=== PATIENT | male | born 1980 | race Caucasian/White ===

== ENCOUNTER 2019-01-18 08:46 | Inpatient (IN) | payer OTHER ==
[2019-01-18 09:07] VITALS: BMI 22.5
--- NOTE | 2019-01-18 09:09 | HP ---
CIWA Score Nausea/Vomitin Muscle Tremors: 3 Anxiety: 2 Agitation: 2 Paroxysmal Sweats: 3 Orientation: 1-Uncertain about Date Tacttile Disturbances: 2-Mild Itch/Numbness/Burn Auditory Disturbances: 1-Very Mild Visual Disturbances: 1-Very Mild Sensitivity Headache: 0-None Present CIWA-Ar Total Score: 18 - Admission Criteria OASAS Guidelines: Admission for Medically Managed Detox: Requires at least one of the followin. CIWA greater than 12 2. Seizures within the past 24 hours 3. Delirium tremens within the past 24 hours 4. Hallucinations within the past 24 hours 5. Acute intervention needed for co occurring medical disorder 6. Acute intervention needed for co occurring psychiatric disorder 7. Severe withdrawal that cannot be handled at a lower level of care (continued vomiting, continued diarrhea, abnormal vital signs) requiring intravenous medication and/or fluids 8. Patient presents the following: CIWA greater than 12 Admission Criteria Met: Admission criteria met Admission ROS BHS - HPI Chief Complaint: I want to stop drinking Allergies/Adverse Reactions: Allergies Allergy/AdvReac Type Severity Reaction Status Date / Time No Known Allergies Allergy Verified 01/18/19 09:42 History of Present Illness: 38 y/o male with 30 years of drinking alcohol presents for detox. He was sent to the ED at [facility] last night by EMS after being picked up on the street in a drunken state. He was hydrated and brought here by [facility] van service. He reports recent detox at [facility] about a month ago. This is his 1st time at [facility]. He reports prison program at [facility] for Recovery but relapsed right after the program. He reports previous seizure related to alcohol intoxication about 6 months ago. Exam Limitations: No Limitations - Ebola screening Have you traveled outside of the country in the last 21 days: No (N) Have you had contact with anyone from an Ebola affected area: No Have you been sick,other than usual withdrawal symptoms: No Do you have a fever: No - Review of Systems Constitutional: Chills, Loss of Appetite, Changes in sleep, Weakness EENT: reports: Blurred Vision Respiratory: reports: Cough Cardiac: reports: Palpitations GI: reports: Diarrhea, Nausea, Poor Appetite, Poor Fluid Intake, Vomiting : reports: No Symptoms Reported Musculoskeletal: reports: Muscle Weakness Integumentary: reports: Flushing Neuro: reports: Numbness, Tingling, Tremors, Weakness Endocrine: reports: No Symptoms Reported Hematology: reports: No Symptoms Reported Psychiatric: reports: Anxious (followed by psychiatrist. reports last seen a month ago), Depressed Other Systems: Reviewed and Negative Patient History - Patient Medical History Hx Anemia: No Hx Asthma: Yes (albuterol as needed) Hx Chronic Obstructive Pulmonary Disease (COPD): Yes Hx Cancer: No Hx Cardiac Disorders: No Hx Congestive Heart Failure: No Hx Hypertension: No Hx Hypercholesterolemia: Yes Hx Pacemaker: No HX Cerebrovascular Accident: No Hx Seizures: Yes (on keppra) Hx Dementia: No Hx Diabetes: No Hx Gastrointestinal Disorders: No Hx Liver Disease: No Hx Genitourinary Disorders: No Hx Sexually Transmitted Disorders: No Hx Renal Disease (ESRD): No Hx Thyroid Disease: Yes (hyperthyroidism) Hx Human Immunodeficiency Virus (HIV): Yes Hx Hepatitis C: No Hx Depression: Yes Hx Suicide Attempt: Yes (attempted suicide with a gun in 2013) Hx Bipolar Disorder: Yes Hx Schizophrenia: Yes (tendencies) - Patient Surgical History Past Surgical History: No - PPD History Previous Implant?: Yes Documented Results: Negative w/o proof Implanted On Prior R Admission?: No PPD to be Administered?: Yes - Reproductive History Patient is a Female of Child Bearing Age (11 -55 yrs old): No - Smoking Cessation Smoking history: Current every day smoker Have you smoked in the past 12 months: Yes Aproximately how many cigarettes per day: 40 Hx Chewing Tobacco Use: No Initiated information on smoking cessation: Yes 'Breaking Loose' booklet given: 01/18/19 - Substance & Tx. History Hx Alcohol Use: Yes Hx Substance Use: No Substance Use Type: Alcohol - Substances Abused Alcohol Route: Oral (Vodka) Frequency: Daily Amount used: 1 gallon Age of first use: 8 Date of Last Use: 01/18/19 Family Disease History - Family Disease History Family Disease History: Heart Disease: Father (alcoholism), CA: Grandparent ( pancreatic), Other: Father, Mother ( from brain aneurysm) Admission Physical Exam S - Vital Signs Vital Signs: BP 112/80 HR 89 RR18 T97 - Physical General Appearance: Yes: Mild Distress, Alcohol on Breath, Tremorous, Irritable , Sweating, Anxious HEENTM: Yes: Hearing grossly Normal, Normocephalic, Normal Voice Respiratory: Yes: Chest Non-Tender, Lungs Clear, Normal Breath Sounds, No Respiratory Distress, No Accessory Muscle Use Neck: Yes: No masses,lesions,Nodules, Supple, Trachea in good position Breast: Yes: Breast Exam Deferred Cardiology: Yes: Regular Rhythm, Regular Rate, S1, S2 Abdominal: Yes: Normal Bowel Sounds, Non Tender, Soft Genitourinary: Yes: Within Normal Limits Back: Yes: Normal Inspection Musculoskeletal: Yes: full range of Motion, Muscle weakness Extremities: Yes: Normal Capillary Refill, Normal Inspection, Normal Range of Motion, Non-Tender, Tremors Neurological: Yes: dryer and washer mechanic II-XII NML intact, Alert, Normal Mood/Affect, Normal Response Integumentary: Yes: Normal Color, Moist Lymphatic: Yes: Within Normal Limits - Diagnostic (1) Uncomplicated alcohol withdrawal Current Visit: Yes Status: Acute (2) Seizure disorder Current Visit: Yes Status: Acute (3) Hypercholesterolemia Current Visit: Yes Status: Acute (4) Hypothyroidism Current Visit: Yes Status: Acute (5) Asthma Current Visit: Yes Status: Acute (6) COPD (chronic obstructive pulmonary disease) Current Visit: Yes Status: Acute Cleared for Admission S - Detox or Rehab [facility] Level of Care: Medically Managed Detox Regimen/Protocol: Librium Inpatient Rehab Admission - Rehab Decision to Admit Inpatient rehab admission?: No
[2019-01-18] MEDS ORDERED: MAGNESIUM CITRATE 300 ML BOTTLE PO PRN (09:30)
[2019-01-18] MEDS ORDERED: ACETAMINOPHEN 325 MG TABLET (FP) PO PRN (09:30)
[2019-01-18] MEDS ORDERED: guaiFENesin/D-METHORPHAN HB 10 ML UNIT-DOSE CUPS PO PRN (09:30)
[2019-01-18] MEDS ORDERED: MAGNESIUM HYDROX 2400MG/30ML ORAL SUSPENSION 30 ML CUP PO PRN (09:30)
[2019-01-18] MEDS ORDERED: LOPERAMIDE HCL 2 MG CAPSULE PO PRN (09:30)
[2019-01-18] MEDS ORDERED: MENTHOL/PHENOL 1 EACH UD MM PRN (09:30)
[2019-01-18] MEDS ORDERED: P-EPHED 60MG/TRIPROLIDI 2.5MG TABLET PO PRN (09:30)
[2019-01-18] MEDS ORDERED: NICOTINE POLACRILEX 2 MG GUM BUC PRN (09:30)
[2019-01-18] MEDS ORDERED: MAG HYDROX/AL HYDROX/SIMETH 30 ML UNIT-DOSE CUP PO PRN (09:30)
[2019-01-18] MEDS ORDERED: IBUPROFEN 400 MG TABLET (FP) PO PRN (09:30)
[2019-01-18] MEDS ORDERED: chlordiazePOXIDE HCL 25 MG CAPSULE PO ONE (10:45)
[2019-01-18] MEDS: levETIRAcetam 250 MG TABLET (FP) PO SCH ×2 (11:33→22:26)
[2019-01-18] MEDS: PRENATAL VITAMINS W/ FOLIC ACID TABLET (FP) PO SCH (11:34)
[2019-01-18] MEDS: chlordiazePOXIDE HCL 25 MG CAPSULE PO SCH ×3 (11:34→22:27)
[2019-01-18] MEDS: NICOTINE 14 MG/24 HOURS TOPICAL PATCH TD SCH (11:35)
--- NOTE | 2019-01-18 14:44 | CONSULT ---
[facility] Psychiatric Consult - Data Date of interview: 01/18/19 Admission source: [facility] Identifying data: First admission to [facility] for this 38 y/o male self-referred for detoxification (alcohol, cannabis). Evaluated at [address] [place] [address]. Patient is single without dependents, homeless ([facility] resident), unemployed and supported on Public Assistance. Substance Abuse History: Confirmed by the patient in this interview. Details in current [facility] report as follows : Smoking history: Current every day smoker. Have you smoked in the past 12 months: Yes. Aproximately how many cigarettes per day: 40. Hx Chewing Tobacco Use: No. Initiated information on smoking cessation: Yes. 'Breaking Loose' booklet given: 01/18/19. - Substance & Tx. History. Hx Alcohol Use: Yes. Hx Substance Use: No. Substance Use Type: Alcohol. - Substances Abused. Alcohol. Route: Oral (Vodka). Frequency: Daily. Amount used: 1 gallon. Age of first use: 8. Date of Last Use: 01/18/19 Medical History: Consistent with self-report of hyperthyroidism, dyslipidemia and a history of withdrawal-related seizures. Psychiatric History: Patient reports an enduring history of pyschiatric disturbances that started around age 9-10 (temper tantrums, behavioral issues, anxiety) after his father's . Endorses multiple psychiatric hospitalizations ([facility], [facility], [facility]). Mr Cardona has received several diagnoses over the years (bipolar disorder, MDD, PTSD, panic disorder with agoraphobia) and managed with various drugs which include gabapentin, valproate, quetiapine, sertraline, minipres and other unnamed agents. He admits to a pattern of inconsistent adherence to OPD care. Recently followed at [facility] mental health clinic. No show for more than a month (patient's own statement). Gets medications refills from local emergency room settings. Patient mentions one suicide attempt via mongolian roulette in 2013 (girlfriend called EMS) and reports that he, no longer, owns a firearm (was confiscated by the Police). Last took prescribed psychotropic medications a week ago (self-report). Questionable historian. Physical/Sexual Abuse/Trauma History: Patient denies. Additional Comment: Toxicology screen not available. Mental Status Exam - Mental Status Exam Alert and Oriented to: Time, Place, Person Cognitive Function: Good Patient Appearance: Well Groomed Mood: Nervous, Withdrawn Affect: Mood Congruent, Constricted Patient Behavior: Fatigued, Appropriate, Cooperative Speech Pattern: Clear, Appropriate Voice Loudness: Normal Thought Process: Goal Oriented Thought Disorder: Not Present Hallucinations: Denies Suicidal Ideation: Denies Homicidal Ideation: Denies Insight/Judgement: Poor Sleep: Poorly, Difficulty falling asleep (wants seroquel) Appetite: Good Muscle strength/Tone: Normal Gait/Station: Normal Psychiatric Findings - Problem List ([place] 1, 2,3) (1) Uncomplicated alcohol withdrawal Current Visit: Yes Status: Acute (2) Nicotine dependence Current Visit: Yes Status: Chronic (3) Substance induced mood disorder Current Visit: Yes Status: Chronic (4) History of bipolar disorder Current Visit: Yes Status: Chronic Comment: Non-compliant with psychiatric aftercare. (5) Insomnia Current Visit: Yes Status: Acute (6) Non-compliant patient Current Visit: Yes Status: Chronic - Initial Treatment Plan Initial Treatment Plan: Psychoeducation. Sleep hygiene. Detoxification. Relapse prevention : explained to patient. AA meetings. Motivational sessions throughout hospital course. Groups. Patient agrees, after discussion of side effects/benefits to be started on seroquel 100 mg po hs. Observation. No information about patient's regular pharmacy or psychiatric care providers. Will contact [facility] for collateral information prior to resuming sertraline, valproate and gabapentin.
[2019-01-18] MEDS: hydrOXYzine PAMOATE 50 MG CAPSULE (FP) PO PRN ×2 (17:32→22:27)
[2019-01-18] MEDS ORDERED: MELATONIN 5 MG TABLETS PO PRN (22:00)
--- NOTE | 2019-01-18 22:17 | EKG ---
Test Reason : Blood Pressure : / mmHG Vent. Rate : 073 BPM Atrial Rate : 073 BPM P-R Int : 126 ms QRS Dur : 092 ms QT Int : 392 ms P-R-T Axes : 053 071 043 degrees QTc Int : 431 ms NORMAL SINUS RHYTHM NORMAL ECG NO PREVIOUS ECGS AVAILABLE Confirmed by ENRIQUE HERNANDEZ MD ([id number]) on 01/18/2019 10:17:30 PM Referred By: JOSE BRADEN Confirmed By:ENRIQUE HERNANDEZ MD
[2019-01-18] MEDS: THIAMINE HCL 100 MG TABLET (FP) PO SCH (22:27)
[2019-01-18] MEDS: QUEtiapine FUMARATE 100 MG TABLET (FP) PO SCH (22:27)
[2019-01-19] MEDS: chlordiazePOXIDE HCL 25 MG CAPSULE PO PRN (01:20)
[2019-01-19] MEDS: chlordiazePOXIDE HCL 25 MG CAPSULE PO SCH ×4 (05:55→22:34)
[2019-01-19] MEDS: NICOTINE 14 MG/24 HOURS TOPICAL PATCH TD SCH (09:29)
[2019-01-19] MEDS: PRENATAL VITAMINS W/ FOLIC ACID TABLET (FP) PO SCH (09:29)
[2019-01-19] MEDS: levETIRAcetam 250 MG TABLET (FP) PO SCH ×2 (09:30→22:33)
[2019-01-19] MEDS: hydrOXYzine PAMOATE 50 MG CAPSULE (FP) PO PRN ×2 (10:06→22:34)
[2019-01-19 10:47] LABS: ALBUMIN 4.5 g/dl (3.4-5.0); ALK PHOS 72 U/L (45-117); ANION GAP 9 MMOL/L (8-16); BILIRUBIN,TOTAL 0.2 mg/dL (0.2-1); BLOOD UREA NITROGEN 9 mg/dL (7-18); CALCIUM 8.7 mg/dL (8.5-10.1); CHLORIDE 103 mmol/L (98-107); CO2 27 mmol/L (21-32); GLUCOSE,RANDOM 74 mg/dL (74-106); POTASSIUM 3.6 mmol/L (3.5-5.1); SGOT/AST 37 U/L (15-37); SGPT/ALT 31 U/L (13-61); SODIUM 139 mmol/L (136-145); TOT PROT 7.8 g/dl (6.4-8.2)
[2019-01-19 10:53] LABS: HEMATOCRIT 46.4 % (35.4-49); HEMOGLOBIN 16.1 GM/dL (11.7-16.9); MCH 34.4 pg (25.7-33.7); MCHC 34.6 g/dl (32.0-35.9); MEAN CELL VOLUME 99.3 fl (80-96); MEAN PLT VOLUME 8.3 fl (7.5-11.1); PLATELET COUNT 234 K/MM3 (134-434); RBC 4.67 M/mm3 (4.00-5.60); WHITE BLOOD COUNT 7.9 K/mm3 (4.0-10.0)
[2019-01-19] MEDS: ONDANSETRON *ODT* 4 MG TABLET SL PRN ×2 (12:30→22:48)
--- NOTE | 2019-01-19 16:18 | PN ---
S CIWA - CIWA Score Nausea/Vomitin Muscle Tremors: 4-Moderate,w/Arms Extend Anxiety: 4-Mod. Anxious/Guarded Agitation: 4-Moderately Restless Paroxysmal Sweats: 3 Orientation: 0-Oriented Tacttile Disturbances: 1-Very Mild Itch/Numbness Auditory Disturbances: 0-None Visual Disturbances: 0-None Headache: 0-None Present CIWA-Ar Total Score: 18 BHS Progress Note (SOAP) Subjective: Sweating, tremor, anxious, tingling in hands, nausea Objective: 01/19/19 16:17 Last Vital Signs Temp Pulse Resp BP Pulse Ox 96.8 F L 74 18 115/69 01/19/19 13:27 01/19/19 13:27 01/19/19 13:27 01/19/19 13:27 Laboratory Tests 01/19/19 01/19/19 01/19/19 05:50 05:50 05:50 WBC 7.9 RBC 4.67 Hgb 16.1 Hct 46.4 MCV 99.3 H MCH 34.4 H MCHC 34.6 RDW 14.0 Plt Count 234 MPV 8.3 Sodium 139 Potassium 3.6 Chloride 103 Carbon Dioxide 27 Anion Gap 9 BUN 9 Creatinine 1.0 Creat Clearance w eGFR > 60 Random Glucose 74 Calcium 8.7 Total Bilirubin 0.2 AST 37 ALT 31 Alkaline Phosphatase 72 Total Protein 7.8 Albumin 4.5 RPR Titer Nonreactive Labs reviewed Assessment: 01/19/19 16:17 Withdrawal symptoms Plan: Continue detox Encouraged PO water hydration
[2019-01-19] MEDS: THIAMINE HCL 100 MG TABLET (FP) PO SCH (22:34)
[2019-01-19] MEDS: QUEtiapine FUMARATE 100 MG TABLET (FP) PO SCH (22:34)
[2019-01-20] MEDS: chlordiazePOXIDE HCL 25 MG CAPSULE PO SCH (05:50)
--- NOTE | 2019-01-20 09:35 | CONSULT ---
[facility] Psychiatric Consult - Data Date of interview: 01/20/19 Admission source: My medications Identifying data: approached MD in a lobby reporting not taking medications he kayy been taking prior to admission. Patient reports history of
--- NOTE | 2019-01-20 09:44 | PN ---
Psychiatric Progress Note Vital Signs: Vital Signs Period Temp Pulse Resp BP Sys/Ceron Pulse Ox Last 24 Hr 95.5 F-98.4 F 66-77 18-20 110-122/69-93 Date of Session: 01/20/19 Chief Complaint:: My medications HPI: Patient approached MD in a lobby reporting not taking his medications he kayy been taking prior to admission. Patient reports history of Bipolar Disorder , Schizophrenia , with history of suicidal attempt on 2013, reports taking prior to admission: Depakote 750mg po tid Current Medications: Active Medications Generic Name Dose Route Start Last Admin Trade Name Freq PRN Reason Stop Dose Admin Acetaminophen 650 mg 01/18/19 09:30 Tylenol - PO Q4H PRN FEVER Al Hydroxide/Mg Hydroxide 30 ml 01/18/19 09:30 01/19/19 17:03 Mylanta Oral Suspension - PO 30 ml Q6H PRN Administration DYSPEPSIA Chlordiazepoxide HCl 15 mg 01/20/19 11:00 Librium - PO 01/21/19 05:01 [id number] WYATT Chlordiazepoxide HCl 25 mg 01/18/19 09:30 01/19/19 01:20 Librium - PO 01/21/19 09:29 25 mg Q4H PRN Administration WITHDRAWAL(CONT SUBST) Chlordiazepoxide HCl 10 mg 01/21/19 11:00 Librium - PO 01/22/19 05:01 [id number] WYATT Divalproex Sodium 250 mg 01/20/19 14:00 Depakote - PO TID WYATT Eucalyptus/Menthol/Phenol/Sorbitol 1 each 01/18/19 09:30 Cepastat Lozenge - MM Q4H PRN SORE THROAT Gabapentin 300 mg 01/20/19 14:00 Neurontin - PO TID WYATT Guaifenesin 10 ml 01/18/19 09:30 Robitussin Dm - PO Q6H PRN COUGH Hydroxyzine Pamoate 50 mg 01/18/19 09:30 01/19/19 22:34 Vistaril - PO 50 mg Q4H PRN Administration AGITATION Ibuprofen 400 mg 01/18/19 09:30 Motrin - PO Q6H PRN PAIN LEVEL 4-6 Levetiracetam 250 mg 01/18/19 10:00 01/19/19 22:33 Keppra - PO 250 mg BID WYATT Administration Loperamide HCl 4 mg 01/18/19 09:30 Imodium - PO Q6H PRN DIARRHEA Magnesium Citrate 300 ml 01/18/19 09:30 Citroma - PO Q48H PRN CONSTIPATION Magnesium Hydroxide 30 ml 01/18/19 09:30 Milk Of Magnesia - PO DAILY PRN CONSTIPATION Melatonin 5 mg 01/18/19 22:00 01/19/19 01:20 Melatonin PO 5 mg HS PRN Administration INSOMNIA Nicotine 14 mg 01/18/19 10:00 01/19/19 09:29 Nicoderm Patch - TD 14 mg DAILY WYATT Administration Nicotine Polacrilex 2 mg 01/18/19 09:30 Nicorette Gum - BUC Q2H PRN NICOTINE REPLACEMENT RX Ondansetron HCl 4 mg 01/19/19 11:09 01/19/19 22:48 Zofran Odt - SL 4 mg Q8H PRN Administration NAUSEA AND/OR VOMITING Multivit/Folic Acid/Iron 1 tab 01/18/19 10:00 01/19/19 09:29 Vitamins (Sjr) - PO 1 tab DAILY WYATT Administration Pseudoephedrine/Triprolidine 1 combo 01/18/19 09:30 Actifed - PO TID PRN NASAL CONGESTION Quetiapine Fumarate 200 mg 01/20/19 22:00 Seroquel - PO HS WYATT Quetiapine Fumarate 25 mg 01/20/19 10:00 Seroquel - PO DAILY WYATT Sertraline HCl 100 mg 01/20/19 10:00 Zoloft - PO DAILY WYATT Thiamine HCl 100 mg 01/18/19 22:00 01/19/19 22:34 Vitamin B1 - PO 100 mg HS WYATT Administration Seroquel 100mg po qhs Medication(s) Change(s): Seroquek 100mg po qhs to d/c. Seroquel 25mg po qd, 200mg po qhs. Depakote 250mg po tid. Gaabapentin 300mg po tid. Zoloft 100mg poqd Provider note:: Supportive psychotherapy provided, patioent agrees to start his medications. Mental Status Exam - Mental Status Exam Alert and Oriented to: Person Cognitive Function: Fair Patient Appearance: Unkempt Mood: Anxious Affect: Mood Congruent Patient Behavior: Cooperative Speech Pattern: Appropriate Voice Loudness: Normal Thought Process: Goal Oriented Thought Disorder: Being Controlled Hallucinations: Denies Suicidal Ideation: Denies Homicidal Ideation: Denies Insight/Judgement: Fair Sleep: Difficulty falling asleep Appetite: Weight loss Muscle strength/Tone: Normal Gait/Station: Normal Additional Comments: Seroquel 25mg po qd, 200mg po qhs. Depakote 250mg po tid. Gaabapentin 300mg po tid. Zoloft 100mg poqd Psychiatric Treatment Plan - Problem List (1) History of bipolar disorder Current Visit: Yes Comment: Non-compliant with psychiatric aftercare. (2) Nicotine dependence Current Visit: Yes (3) Substance induced mood disorder Current Visit: Yes (4) Alcohol dependence Current Visit: Yes (5) Nicotine dependence Current Visit: Yes (6) Drug-induced mood disorder Current Visit: Yes (7) Asthma Current Visit: Yes (8) COPD (chronic obstructive pulmonary disease) Current Visit: Yes (9) Hypercholesterolemia Current Visit: Yes (10) Hypothyroidism Current Visit: Yes (11) Non-compliant patient Current Visit: Yes Initial treatment plan: Seroquel 25mg po qd, 200mg po qhs. Depakote 250mg po tid. Gaabapentin 300mg po tid. Zoloft 100mg poqd
[2019-01-20] MEDS: SERTRALINE HCL 50 MG TABLET (FP) PO SCH (10:36)
[2019-01-20] MEDS: PRENATAL VITAMINS W/ FOLIC ACID TABLET (FP) PO SCH (10:36)
[2019-01-20] MEDS: NICOTINE 14 MG/24 HOURS TOPICAL PATCH TD SCH (10:37)
[2019-01-20] MEDS: levETIRAcetam 250 MG TABLET (FP) PO SCH ×2 (10:37→22:06)
[2019-01-20] MEDS: chlordiazePOXIDE 5 MG CAPSULE PO SCH ×3 (10:37→22:07)
[2019-01-20] MEDS: QUEtiapine FUMARATE 25 MG TABLET (FP) PO SCH (10:37)
--- NOTE | 2019-01-20 11:42 | PN ---
[facility] CIWA - CIWA Score Nausea/Vomitin-No Nausea/No Vomiting Muscle Tremors: 2 Anxiety: 3 Agitation: 3 Paroxysmal Sweats: 2 Orientation: 0-Oriented Tacttile Disturbances: 0-None Auditory Disturbances: 0-None Visual Disturbances: 0-None Headache: 0-None Present CIWA-Ar Total Score: 10 S Progress Note (SOAP) Subjective: sweats sleep disturbance anxious shakes Objective: 01/20/19 11:38 A & O x 3 Met standing in room in no acute distress Vital Signs Temperature 97.3 F L 01/20/19 09:09 Pulse Rate 77 01/20/19 09:09 Respiratory Rate 18 01/20/19 09:09 Blood Pressure 110/73 01/20/19 09:09 O2 Sat by Pulse Oximetry (%) Assessment: 01/20/19 11:44 withdrawal sx Plan: continue detox For d/c in a.m
[2019-01-20] MEDS: DIVALPROEX SODIUM 250 MG TABLET E.C. PO SCH ×2 (13:38→22:06)
[2019-01-20] MEDS: GABAPENTIN 300 MG CAPSULE (FP) PO SCH ×2 (13:38→22:06)
[2019-01-20] MEDS: chlordiazePOXIDE HCL 25 MG CAPSULE PO PRN (13:39)
[2019-01-20] MEDS: QUEtiapine FUMARATE 200 MG TABLET PO SCH (22:06)
[2019-01-20] MEDS: THIAMINE HCL 100 MG TABLET (FP) PO SCH (22:06)
[2019-01-21] MEDS: chlordiazePOXIDE HCL 25 MG CAPSULE PO PRN (03:07)
[2019-01-21] MEDS: chlordiazePOXIDE 5 MG CAPSULE PO SCH (05:56)
[2019-01-21] MEDS: DIVALPROEX SODIUM 250 MG TABLET E.C. PO SCH ×3 (05:56→22:18)
[2019-01-21] MEDS: GABAPENTIN 300 MG CAPSULE (FP) PO SCH ×3 (05:57→22:18)
[2019-01-21] MEDS: PRENATAL VITAMINS W/ FOLIC ACID TABLET (FP) PO SCH (10:30)
[2019-01-21] MEDS: chlordiazePOXIDE HCL 10 MG CAPSULE PO SCH ×3 (10:30→22:18)
[2019-01-21] MEDS: QUEtiapine FUMARATE 25 MG TABLET (FP) PO SCH (10:30)
[2019-01-21] MEDS: SERTRALINE HCL 50 MG TABLET (FP) PO SCH (10:30)
[2019-01-21] MEDS: NICOTINE 14 MG/24 HOURS TOPICAL PATCH TD SCH (10:31)
[2019-01-21] MEDS: levETIRAcetam 250 MG TABLET (FP) PO SCH ×2 (10:31→22:18)
--- NOTE | 2019-01-21 12:16 | PN ---
BHS Progress Note (SOAP) Subjective: Interrupted Sleep, Nausea, Tremors, Sweating. Objective: PATIENT A & O X 3, OBSERVED AMBULATING ON UNIT. IN NO ACUTE DISTRESS. 01/21/19 12:13 Vital Signs Temperature 97.9 F 01/21/19 09:54 Pulse Rate 69 01/21/19 09:54 Respiratory Rate 18 01/21/19 09:54 Blood Pressure 110/72 01/21/19 09:54 O2 Sat by Pulse Oximetry (%) Laboratory Tests 01/19/19 01/19/19 01/19/19 05:50 05:50 05:50 WBC 7.9 RBC 4.67 Hgb 16.1 Hct 46.4 MCV 99.3 H MCH 34.4 H MCHC 34.6 RDW 14.0 Plt Count 234 MPV 8.3 Sodium 139 Potassium 3.6 Chloride 103 Carbon Dioxide 27 Anion Gap 9 BUN 9 Creatinine 1.0 Creat Clearance w eGFR > 60 Random Glucose 74 Calcium 8.7 Total Bilirubin 0.2 AST 37 ALT 31 Alkaline Phosphatase 72 Total Protein 7.8 Albumin 4.5 RPR Titer Nonreactive LABS NOTED. 01/21/19 12:14 Assessment: 01/21/19 12:14 WITHDRAWAL SYMPTOMS. Plan: CONTINUE DETOX. PATIENT SCHEDULED FOR D/C TOMORROW. DISCHARGE PRESCRIPTION FOR KEPPRA SENT TO PATIENT'S PHARMACY ([facility], [place]). OTHER DISCHARGE PRESCRIPTIONS TO SENT BY PSYCHIATRY.
--- NOTE | 2019-01-21 12:51 | PN ---
Psychiatric Progress Note Vital Signs: Vital Signs Period Temp Pulse Resp BP Sys/Ceron Pulse Ox Last 24 Hr 96.3 F-97.9 F 64-79 16-18 104-133/64-82 Date of Session: 01/21/19 Chief Complaint:: "My medications." HPI: Patient requesting medications be sent to a different phamacy. ROS: Consistent with self-report of hyperthyroidism, dyslipidemia and a history of withdrawal-related seizures. Current Medications: Active Medications Generic Name Dose Route Start Last Admin Trade Name Freq PRN Reason Stop Dose Admin Acetaminophen 650 mg 01/18/19 09:30 Tylenol - PO Q4H PRN FEVER Al Hydroxide/Mg Hydroxide 30 ml 01/18/19 09:30 01/19/19 17:03 Mylanta Oral Suspension - PO 30 ml Q6H PRN Administration DYSPEPSIA Chlordiazepoxide HCl 10 mg 01/21/19 11:00 01/21/19 10:30 Librium - PO 01/22/19 05:01 10 mg [id number] WYATT Administration Divalproex Sodium 250 mg 01/20/19 14:00 01/21/19 05:56 Depakote - PO 250 mg TID WYATT Administration Eucalyptus/Menthol/Phenol/Sorbitol 1 each 01/18/19 09:30 Cepastat Lozenge - MM Q4H PRN SORE THROAT Gabapentin 300 mg 01/20/19 14:00 01/21/19 05:57 Neurontin - PO 300 mg TID WYATT Administration Guaifenesin 10 ml 01/18/19 09:30 Robitussin Dm - PO Q6H PRN COUGH Hydroxyzine Pamoate 50 mg 01/18/19 09:30 01/19/19 22:34 Vistaril - PO 50 mg Q4H PRN Administration AGITATION Ibuprofen 400 mg 01/18/19 09:30 Motrin - PO Q6H PRN PAIN LEVEL 4-6 Levetiracetam 250 mg 01/18/19 10:00 01/21/19 10:31 Keppra - PO 250 mg BID WYATT Administration Loperamide HCl 4 mg 01/18/19 09:30 Imodium - PO Q6H PRN DIARRHEA Magnesium Citrate 300 ml 01/18/19 09:30 Citroma - PO Q48H PRN CONSTIPATION Magnesium Hydroxide 30 ml 01/18/19 09:30 Milk Of Magnesia - PO DAILY PRN CONSTIPATION Melatonin 5 mg 01/18/19 22:00 01/19/19 01:20 Melatonin PO 5 mg HS PRN Administration INSOMNIA Nicotine 14 mg 01/18/19 10:00 01/21/19 10:31 Nicoderm Patch - TD 14 mg DAILY WYATT Administration Nicotine Polacrilex 2 mg 01/18/19 09:30 Nicorette Gum - BUC Q2H PRN NICOTINE REPLACEMENT RX Ondansetron HCl 4 mg 01/19/19 11:09 01/19/19 22:48 Zofran Odt - SL 4 mg Q8H PRN Administration NAUSEA AND/OR VOMITING Multivit/Folic Acid/Iron 1 tab 01/18/19 10:00 01/21/19 10:30 Vitamins (Sjr) - PO 1 tab DAILY WYATT Administration Pseudoephedrine/Triprolidine 1 combo 01/18/19 09:30 Actifed - PO TID PRN NASAL CONGESTION Quetiapine Fumarate 200 mg 01/20/19 22:00 01/20/19 22:06 Seroquel - PO 200 mg HS WYATT Administration Quetiapine Fumarate 25 mg 01/20/19 10:00 01/21/19 10:30 Seroquel - PO 25 mg DAILY WYATT Administration Sertraline HCl 100 mg 01/20/19 10:00 01/21/19 10:30 Zoloft - PO 100 mg DAILY WYATT Administration Thiamine HCl 100 mg 01/18/19 22:00 01/20/19 22:06 Vitamin B1 - PO 100 mg HS WYATT Administration Medication(s) Change(s): No. Current Side Effect: No Lab tests ordered: No Lab tests reviewed: Yes Provider note:: Patient seen by Dr. Wright. Dr. Wright's note read and appreciated. Patient reports feeling well and is content with his treatment in detox. Outpatient psychiatric care was provided at [facility] but patient states he does not have a follow up appointment with them and is now scheduled for an assessment at [facility] on . Patient's medications were initially sent to [place] pharmacy by Dr. Wright. Patient requesting medications be sent to [facility] pharmacy. Chart reviewed. Patient's pharmacy contacted and able to verify patient's medication dosage of seroquel 200mg HS + Seroquel 25mg daily + Zoloft 50mg. INTERVENTIONAL NEURORADIOLOGIST spoke to pharmacist earlier who stated patient is prescribed gabapentin 300mg TID + Depakote 500mg TID. All prescriptions were picked up on 12/06/18. Patient with suboptimal adherence as prescription should have been completed on 01/06/19. Will send a 15 day prescription of the following medications patient was ordered on 6N by Dr. Wright: seroquel 200mg HS + Seroquel 25mg daily + zoloft 100mg daily + Gabapentin 300mg TID + Depakote 250mg TID to [facility], [address] [place] [address]. Total face to face time:: 15 Mental Status Exam - Mental Status Exam Alert and Oriented to: Time, Place, Person Cognitive Function: Good Patient Appearance: Well Groomed Mood: Euthymic Affect: Appropriate Patient Behavior: Appropriate, Cooperative Speech Pattern: Clear, Appropriate Voice Loudness: Normal Thought Process: Intact, Goal Oriented Thought Disorder: Not Present Hallucinations: Denies Suicidal Ideation: Denies Homicidal Ideation: Denies Insight/Judgement: Poor Sleep: Fair Appetite: Good Muscle strength/Tone: Normal Gait/Station: Normal Psychiatric Treatment Plan - Problem List (1) Nicotine dependence Current Visit: Yes (2) Uncomplicated alcohol withdrawal Current Visit: Yes (3) History of bipolar disorder Current Visit: Yes Comment: Non-compliant with psychiatric aftercare. (4) Substance induced mood disorder Current Visit: Yes (5) Insomnia Current Visit: Yes
[2019-01-21] MEDS: THIAMINE HCL 100 MG TABLET (FP) PO SCH (22:18)
[2019-01-21] MEDS: QUEtiapine FUMARATE 200 MG TABLET PO SCH (22:18)
[2019-01-22] MEDS: GABAPENTIN 300 MG CAPSULE (FP) PO SCH (05:57)
[2019-01-22] MEDS: chlordiazePOXIDE HCL 10 MG CAPSULE PO SCH (05:57)
[2019-01-22] MEDS: DIVALPROEX SODIUM 250 MG TABLET E.C. PO SCH (05:58)
[2019-01-22 09:18] VITALS: BP 127/78; PULSE 65; TEMP 96.4
[2019-01-22] MEDS: QUEtiapine FUMARATE 25 MG TABLET (FP) PO SCH (09:25)
[2019-01-22] MEDS: SERTRALINE HCL 50 MG TABLET (FP) PO SCH (09:25)
[2019-01-22] MEDS: levETIRAcetam 250 MG TABLET (FP) PO SCH (09:25)
[2019-01-22] MEDS: PRENATAL VITAMINS W/ FOLIC ACID TABLET (FP) PO SCH (09:25)
[2019-01-22] MEDS: NICOTINE 14 MG/24 HOURS TOPICAL PATCH TD SCH (10:00)
--- NOTE | 2019-01-22 19:59 | DS ---
[facility] Detox Discharge Summary Admission Date: 01/18/19 Discharge Date: 01/22/19 - History Present History: Alcohol Dependence Additional Comments: PATIENT GOING TO [facility] ([place], [place]) FOR AFTERCARE. PATIENT ADVISED TO FOLLOW-UP WITH [facility] DR. HUTSON ([place], [place]) SOON POSSIBLE AFTER DISCHARGE FORM DETOX UNIT FOR GENERAL MEDICAL ASSESSMENT AND FOR HISTORY OF SEIZURE DISORDER. PATIENT VERBALIZED UNDERSTANDING OF RECOMMENDATION. PRESCRIPTIONS DFORT DISCHARGE MEDICATIONS, INCLUDING KEPPRA FOR SEIZURE DISORDER, SENT TO PATIENT'S PHARMACY ([place], [place]) FOR DISCHARGE AFTERCARE. DISCHARGE PATIENT WAS DISCHARGED FROM DETOX UNIT IN STABLE MEDICAL CONDITION. Pertinent Past History: Asthma, C.O.P.D., History of Depression, History of Bipolar Disorder, Insomnia, History of Hypothyroidism, History of Schizophrenia, History of Seizure Disorder , H.I.V., Nicotine Dependence, History of Insomnia. - Physical Exam Results Vital Signs: Vital Signs Temperature 96.4 F L 01/22/19 09:17 Pulse Rate 65 01/22/19 09:17 Respiratory Rate 18 01/22/19 09:17 Blood Pressure 127/78 01/22/19 09:17 O2 Sat by Pulse Oximetry (%) Pertinent Admission Physical Exam Findings: WITHDRAWAL SYMPTOMS. Laboratory Tests 01/19/19 01/19/19 01/19/19 05:50 05:50 05:50 WBC 7.9 RBC 4.67 Hgb 16.1 Hct 46.4 MCV 99.3 H MCH 34.4 H MCHC 34.6 RDW 14.0 Plt Count 234 MPV 8.3 Sodium 139 Potassium 3.6 Chloride 103 Carbon Dioxide 27 Anion Gap 9 BUN 9 Creatinine 1.0 Creat Clearance w eGFR > 60 Random Glucose 74 Calcium 8.7 Total Bilirubin 0.2 AST 37 ALT 31 Alkaline Phosphatase 72 Total Protein 7.8 Albumin 4.5 RPR Titer Nonreactive LABS NOTED. - Treatment Hospital Course: Detox Protocol Followed, Detoxed Safely, Responded well, Discharged Condition Good Patient has Accepted a Rehab Referral to: PATIENT WILL ATTEND [facility] ([place], [place]). - Medication Discharge Medications: Ambulatory Orders Divalproex [Depakote -] 750 mg PO TID 01/18/19 Quetiapine Fumarate [Seroquel] 200 mg PO HS 01/18/19 Sertraline HCl [Zoloft] 250 mg PO DAILY 01/18/19 Divalproex [Depakote -] 250 mg PO TID #60 tablet.ec 01/20/19 Gabapentin 750 mg PO TID #90 capsule 01/20/19 Quetiapine Fumarate [Seroquel -] 25 mg PO DAILY #30 tablet 01/20/19 Quetiapine Fumarate [Seroquel -] 200 mg PO HS #30 tablet 01/20/19 Sertraline HCl [Zoloft] 100 mg PO DAILY #30 tablet 01/20/19 Divalproex [Depakote -] 250 mg PO TID #45 tablet.ec 01/21/19 Gabapentin 300 mg PO TID #45 capsule 01/21/19 Quetiapine Fumarate [Seroquel -] 25 mg PO DAILY #15 tablet 01/21/19 Quetiapine Fumarate [Seroquel -] 200 mg PO HS #15 tab 01/21/19 Sertraline HCl [Zoloft] 100 mg PO DAILY #15 tablet 01/21/19 levETIRAcetam [Keppra -] 250 mg PO BID 30 Days #60 tablet 01/21/19 - Diagnosis (1) Asthma Status: Chronic Qualifiers: Asthma severity: unspecified severity Asthma persistence: unspecified Asthma complication type: uncomplicated Qualified Code(s): J45.909 - Unspecified asthma, uncomplicated (2) COPD (chronic obstructive pulmonary disease) Status: Chronic Qualifiers: COPD type: unspecified COPD Qualified Code(s): J44.9 - Chronic obstructive pulmonary disease, unspecified (3) Drug-induced mood disorder Status: Acute (4) Hypercholesterolemia Status: Acute (5) Hypothyroidism Status: Acute Qualifiers: Hypothyroidism type: unspecified Qualified Code(s): E03.9 - Hypothyroidism , unspecified (6) Insomnia Status: Acute Qualifiers: Insomnia type: unspecified Qualified Code(s): G47.00 - Insomnia, unspecified (7) Nicotine dependence Status: Acute Qualifiers: Nicotine product type: cigarettes Substance use status: uncomplicated Qualified Code(s): F17.210 - Nicotine dependence, cigarettes, uncomplicated (8) Seizure disorder Status: Chronic (9) Uncomplicated alcohol withdrawal Status: Acute (10) History of bipolar disorder Status: Chronic (11) Non-compliant patient Status: Chronic (12) Substance induced mood disorder Status: Chronic - AMA Did Patient Leave Against Medical Advice: No
== END 2019-01-22 11:46 | disposition home or self-care (01) | DRG 775 ==
LOC: YASAS 08:46 → Y6N 09:58
PROVIDERS: ADMIT Surgery; ATTEND Surgery
PROC: HZ2ZZZZ Detoxification Services for Substance Abuse Treatment (ICD-10-PCS; principal; 2019-01-18)
DX: F10.230 Alcohol dependence with withdrawal, uncomplicated (principal); F17.210 Nicotine dependence, cigarettes, uncomplicated; F19.21 Other psychoactive substance dependence, in remission; Z21 Asymptomatic human immunodeficiency virus [HIV] infection status; G47.00 Insomnia, unspecified; J45.909 Unspecified asthma, uncomplicated; J44.9 Chronic obstructive pulmonary disease, unspecified; E03.9 Hypothyroidism, unspecified; E78.00 Pure hypercholesterolemia, unspecified; Z86.69 Personal history of other diseases of the nervous system and sense organs; Z86.59 Personal history of other mental and behavioral disorders; Z91.5 Personal history of self-harm; Z91.19 Patient's noncompliance with other medical treatment and regimen
CPT/HCPCS: 36415; 80053; 85027; 86593; 93005; 93010; Q0162

== ENCOUNTER 2019-07-19 08:53 | Inpatient (IN) | payer OTHER ==
[2019-07-19 09:20] VITALS: BMI 23.6
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
[2019-07-19] MEDS ORDERED: chlordiazePOXIDE HCL 25 MG CAPSULE PO PRN (09:49)
[2019-07-19] MEDS ORDERED: chlordiazePOXIDE HCL 25 MG CAPSULE PO ONE (09:49)
[2019-07-19] MEDS ORDERED: MENTHOL/PHENOL 1 EACH UD MM PRN (09:49)
[2019-07-19] MEDS ORDERED: ACETAMINOPHEN 325 MG TABLET (FP) PO PRN ×2 (09:49)
[2019-07-19] MEDS ORDERED: IBUPROFEN 400 MG TABLET (FP) PO PRN (09:49)
[2019-07-19] MEDS ORDERED: METHOCARBAMOL 500 MG TABLET PO PRN (09:49)
[2019-07-19] MEDS ORDERED: BISMUTH SUBSALICYLATE 524 MG/30 ML UD PO PRN (09:49)
[2019-07-19] MEDS ORDERED: MAG HYDROX/AL HYDROX/SIMETH 30 ML UNIT-DOSE CUP PO PRN (09:49)
[2019-07-19] MEDS ORDERED: MAGNESIUM CITRATE 300 ML BOTTLE PO PRN (09:49)
[2019-07-19] MEDS ORDERED: NICOTINE POLACRILEX 4 MG GUM BUC PRN (09:49)
[2019-07-19] MEDS ORDERED: MAGNESIUM HYDROX 2400MG/30ML ORAL SUSPENSION 30 ML CUP PO PRN (09:49)
[2019-07-19] MEDS: chlordiazePOXIDE HCL 25 MG CAPSULE PO SCH ×3 (11:24→22:24)
[2019-07-19] MEDS: NICOTINE 21 MG/24 HOURS TOPICAL PATCH TD SCH (11:25)
[2019-07-19] MEDS: levETIRAcetam 500 MG TABLET (FP) PO SCH ×2 (11:25→22:25)
[2019-07-19] MEDS: PRENATAL VITAMINS W/ FOLIC ACID TABLET (FP) PO SCH (11:25)
[2019-07-19] MEDS: hydrOXYzine PAMOATE 50 MG CAPSULE (FP) PO PRN (13:50)
[2019-07-19] MEDS: GABAPENTIN 300 MG CAPSULE (FP) PO SCH ×2 (13:50→22:25)
[2019-07-19] MEDS: THIAMINE HCL 100 MG TABLET (FP) PO SCH (22:24)
[2019-07-19] MEDS: MELATONIN 5 MG TABLETS PO PRN (22:25)
[2019-07-20] MEDS: chlordiazePOXIDE HCL 25 MG CAPSULE PO SCH ×4 (05:45→22:26)
[2019-07-20] MEDS: GABAPENTIN 300 MG CAPSULE (FP) PO SCH ×3 (05:46→22:26)
[2019-07-20 09:35] LABS: HEMATOCRIT 39.7 % (35.4-49); HEMOGLOBIN 13.9 GM/dL (11.7-16.9); MCH 33.1 pg (25.7-33.7); MCHC 35.1 g/dl (32.0-35.9); MEAN CELL VOLUME 94.2 fl (80-96); MEAN PLT VOLUME 8.3 fl (7.5-11.1); PLATELET COUNT 233 K/MM3 (134-434); RBC 4.21 M/mm3 (4.00-5.60); RDW 14.7 % (11.9-15.9); WHITE BLOOD COUNT 6.6 K/mm3 (4.0-10.0)
[2019-07-20 09:38] LABS: ALBUMIN 3.4 g/dl (3.4-5.0); BILIRUBIN,TOTAL 0.3 mg/dL (0.2-1); BLOOD UREA NITROGEN 10.9 mg/dL (7-18); CALCIUM 8.9 mg/dL (8.5-10.1); CREATININE 0.8 mg/dL (0.55-1.3); POTASSIUM 3.7 mmol/L (3.5-5.1); TOT PROT 6.5 g/dl (6.4-8.2)
[2019-07-20] MEDS ORDERED: ONDANSETRON *ODT* 4 MG TABLET SL PRN (10:25)
[2019-07-20] MEDS: PRENATAL VITAMINS W/ FOLIC ACID TABLET (FP) PO SCH (10:31)
[2019-07-20] MEDS: NICOTINE 21 MG/24 HOURS TOPICAL PATCH TD SCH (10:31)
[2019-07-20] MEDS: levETIRAcetam 500 MG TABLET (FP) PO SCH ×2 (10:31→22:26)
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
[2019-07-20] MEDS: SERTRALINE HCL 50 MG TABLET (FP) PO SCH (14:48)
--- NOTE | 2019-07-20 16:13 | PN ---
S CIWA - CIWA Score Nausea/Vomitin-Mild Nausea/No Vomiting Muscle Tremors: 4-Moderate,w/Arms Extend Anxiety: 3 Agitation: 3 Paroxysmal Sweats: 3 Orientation: 0-Oriented Tacttile Disturbances: 0-None Auditory Disturbances: 0-None Visual Disturbances: 0-None Headache: 0-None Present CIWA-Ar Total Score: 14 BHS Progress Note (SOAP) Subjective: Tremor, sweating, nausea, interrupted sleep Objective: 07/20/19 16:12 Last Vital Signs Temp Pulse Resp BP Pulse Ox 97.2 F L 91 H 18 114/83 07/20/19 13:14 07/20/19 13:14 07/20/19 13:14 07/20/19 13:14 Laboratory Tests 07/20/19 07/20/19 07/20/19 07:45 07:45 07:45 WBC 6.6 RBC 4.21 Hgb 13.9 Hct 39.7 MCV 94.2 MCH 33.1 MCHC 35.1 RDW 14.7 Plt Count 233 MPV 8.3 Sodium 139 Potassium 3.7 Chloride 104 Carbon Dioxide 24 Anion Gap 10 BUN 10.9 Creatinine 0.8 Est GFR (CKD-EPI)AfAm 129.51 Est GFR (CKD-EPI)NonAf 111.74 Random Glucose 99 Calcium 8.9 Total Bilirubin 0.3 AST 17 ALT 26 Alkaline Phosphatase 74 Total Protein 6.5 Albumin 3.4 Valproic Acid 5.2 L RPR Titer 07/20/19 07:45 WBC RBC Hgb Hct MCV MCH MCHC RDW Plt Count MPV Sodium Potassium Chloride Carbon Dioxide Anion Gap BUN Creatinine Est GFR (CKD-EPI)AfAm Est GFR (CKD-EPI)NonAf Random Glucose Calcium Total Bilirubin AST ALT Alkaline Phosphatase Total Protein Albumin Valproic Acid RPR Titer Nonreactive Labs reviewed Assessment: 07/20/19 16:13 Withdrawal sxs Plan: Continue detox Encouraged PO water intake
[2019-07-20] MEDS: QUEtiapine FUMARATE 100 MG TABLET (FP) PO SCH (22:26)
[2019-07-20] MEDS: THIAMINE HCL 100 MG TABLET (FP) PO SCH (22:26)
[2019-07-20] MEDS: MELATONIN 5 MG TABLETS PO PRN (22:28)
[2019-07-21] MEDS: chlordiazePOXIDE HCL 25 MG CAPSULE PO SCH ×4 (05:06→22:09)
[2019-07-21] MEDS: GABAPENTIN 300 MG CAPSULE (FP) PO SCH ×3 (05:06→21:10)
[2019-07-21] MEDS: SERTRALINE HCL 50 MG TABLET (FP) PO SCH (09:41)
[2019-07-21] MEDS: PRENATAL VITAMINS W/ FOLIC ACID TABLET (FP) PO SCH (09:42)
[2019-07-21] MEDS: levETIRAcetam 500 MG TABLET (FP) PO SCH ×2 (09:42→21:09)
[2019-07-21] MEDS: NICOTINE 21 MG/24 HOURS TOPICAL PATCH TD SCH (10:56)
--- NOTE | 2019-07-21 11:15 | PN ---
S CIWA - CIWA Score Nausea/Vomitin-No Nausea/No Vomiting Muscle Tremors: 4-Moderate,w/Arms Extend Anxiety: 3 Agitation: 3 Paroxysmal Sweats: 3 Orientation: 0-Oriented Tacttile Disturbances: 0-None Auditory Disturbances: 0-None Visual Disturbances: 0-None Headache: 0-None Present CIWA-Ar Total Score: 13 BHS Progress Note (SOAP) Subjective: shakes sweats body aches interrupted sleep anxiety chills Objective: 07/21/19 11:11 Vital Signs Temperature 97.3 F L 07/21/19 09:31 Pulse Rate 68 07/21/19 09:31 Respiratory Rate 18 07/21/19 09:31 Blood Pressure 104/59 L 07/21/19 09:31 O2 Sat by Pulse Oximetry (%) Laboratory Tests 07/20/19 07/20/19 07/20/19 07:45 07:45 07:45 WBC 6.6 RBC 4.21 Hgb 13.9 Hct 39.7 MCV 94.2 MCH 33.1 MCHC 35.1 RDW 14.7 Plt Count 233 MPV 8.3 Sodium 139 Potassium 3.7 Chloride 104 Carbon Dioxide 24 Anion Gap 10 BUN 10.9 Creatinine 0.8 Est GFR (CKD-EPI)AfAm 129.51 Est GFR (CKD-EPI)NonAf 111.74 Random Glucose 99 Calcium 8.9 Total Bilirubin 0.3 AST 17 ALT 26 Alkaline Phosphatase 74 Total Protein 6.5 Albumin 3.4 Valproic Acid 5.2 L RPR Titer 07/20/19 07:45 WBC RBC Hgb Hct MCV MCH MCHC RDW Plt Count MPV Sodium Potassium Chloride Carbon Dioxide Anion Gap BUN Creatinine Est GFR (CKD-EPI)AfAm Est GFR (CKD-EPI)NonAf Random Glucose Calcium Total Bilirubin AST ALT Alkaline Phosphatase Total Protein Albumin Valproic Acid RPR Titer Nonreactive aaox3 ambulating no acute distress noted stitches to upper lip and healing bruising to left crystal-orbital areal, pt states some of the stitches are dissolvable and other are not. pt was told we will wait a week and if stitches are still present and he is still our patient we can remove them otherwise he is to return to the ED that placed them to have them remove the remaining stitches. pt in agreement. Assessment: 07/21/19 11:14 withdrawal sx Plan: continue detox increase fluids
[2019-07-21] MEDS: QUEtiapine FUMARATE 100 MG TABLET (FP) PO SCH (21:10)
[2019-07-21] MEDS: MELATONIN 5 MG TABLETS PO PRN (21:10)
[2019-07-21] MEDS: THIAMINE HCL 100 MG TABLET (FP) PO SCH (21:20)
[2019-07-22] MEDS: GABAPENTIN 300 MG CAPSULE (FP) PO SCH ×3 (05:50→21:18)
[2019-07-22] MEDS: chlordiazePOXIDE HCL 10 MG CAPSULE PO SCH ×4 (05:50→22:25)
[2019-07-22] MEDS: PRENATAL VITAMINS W/ FOLIC ACID TABLET (FP) PO SCH (10:23)
[2019-07-22] MEDS: levETIRAcetam 500 MG TABLET (FP) PO SCH ×2 (10:23→21:17)
[2019-07-22] MEDS: NICOTINE 21 MG/24 HOURS TOPICAL PATCH TD SCH (10:23)
[2019-07-22] MEDS: SERTRALINE HCL 50 MG TABLET (FP) PO SCH (10:23)
[2019-07-22] MEDS: chlordiazePOXIDE HCL 10 MG CAPSULE PO PRN ×2 (11:06→21:19)
[2019-07-22] MEDS ORDERED: chlordiazePOXIDE HCL 10 MG CAPSULE PO ONE (12:02)
--- NOTE | 2019-07-22 12:04 | PN ---
S CIWA - CIWA Score Nausea/Vomitin-No Nausea/No Vomiting Muscle Tremors: 4-Moderate,w/Arms Extend Anxiety: 4-Mod. Anxious/Guarded Agitation: 4-Moderately Restless Paroxysmal Sweats: 3 Orientation: 0-Oriented Tacttile Disturbances: 0-None Auditory Disturbances: 0-None Visual Disturbances: 0-None Headache: 0-None Present CIWA-Ar Total Score: 15 BHS Progress Note (SOAP) Subjective: shakes chills sweats body aches Objective: 07/22/19 12:03 Vital Signs Temperature 97 F L 07/22/19 09:37 Pulse Rate 70 07/22/19 09:37 Respiratory Rate 18 07/22/19 09:37 Blood Pressure 109/71 07/22/19 09:37 O2 Sat by Pulse Oximetry (%) Laboratory Tests 07/20/19 07/20/19 07/20/19 07:45 07:45 07:45 WBC 6.6 RBC 4.21 Hgb 13.9 Hct 39.7 MCV 94.2 MCH 33.1 MCHC 35.1 RDW 14.7 Plt Count 233 MPV 8.3 Sodium 139 Potassium 3.7 Chloride 104 Carbon Dioxide 24 Anion Gap 10 BUN 10.9 Creatinine 0.8 Est GFR (CKD-EPI)AfAm 129.51 Est GFR (CKD-EPI)NonAf 111.74 Random Glucose 99 Calcium 8.9 Total Bilirubin 0.3 AST 17 ALT 26 Alkaline Phosphatase 74 Total Protein 6.5 Albumin 3.4 Valproic Acid 5.2 L RPR Titer 07/20/19 07:45 WBC RBC Hgb Hct MCV MCH MCHC RDW Plt Count MPV Sodium Potassium Chloride Carbon Dioxide Anion Gap BUN Creatinine Est GFR (CKD-EPI)AfAm Est GFR (CKD-EPI)NonAf Random Glucose Calcium Total Bilirubin AST ALT Alkaline Phosphatase Total Protein Albumin Valproic Acid RPR Titer Nonreactive labs noted aaox3 lying in bed no acute distress Assessment: 07/22/19 12:04 withdrawals sx Plan: continue detox 20mg librium x one ordered increase fluids
[2019-07-22] MEDS: QUEtiapine FUMARATE 100 MG TABLET (FP) PO SCH (21:18)
[2019-07-22] MEDS: THIAMINE HCL 100 MG TABLET (FP) PO SCH (21:19)
[2019-07-22] MEDS: MELATONIN 5 MG TABLETS PO PRN (21:19)
[2019-07-23] MEDS: chlordiazePOXIDE HCL 10 MG CAPSULE PO SCH ×2 (05:18→16:59)
[2019-07-23] MEDS: GABAPENTIN 300 MG CAPSULE (FP) PO SCH ×3 (05:18→21:44)
[2019-07-23] MEDS: hydrOXYzine PAMOATE 50 MG CAPSULE (FP) PO PRN (06:50)
[2019-07-23] MEDS: chlordiazePOXIDE HCL 25 MG CAPSULE PO PRN ×3 (09:30→21:47)
[2019-07-23] MEDS: SERTRALINE HCL 50 MG TABLET (FP) PO SCH (10:19)
[2019-07-23] MEDS: NICOTINE 21 MG/24 HOURS TOPICAL PATCH TD SCH (10:19)
[2019-07-23] MEDS: levETIRAcetam 500 MG TABLET (FP) PO SCH ×2 (10:20→21:43)
[2019-07-23] MEDS: PRENATAL VITAMINS W/ FOLIC ACID TABLET (FP) PO SCH (10:20)
--- NOTE | 2019-07-23 10:44 | PN ---
S CIWA - CIWA Score Nausea/Vomitin-No Nausea/No Vomiting Muscle Tremors: 3 Anxiety: 4-Mod. Anxious/Guarded Agitation: 4-Moderately Restless Paroxysmal Sweats: 2 Orientation: 0-Oriented Tacttile Disturbances: 0-None Auditory Disturbances: 0-None Visual Disturbances: 0-None Headache: 0-None Present CIWA-Ar Total Score: 13 BHS Progress Note (SOAP) Subjective: sweats shakes anxiety Objective: 07/23/19 10:40 Vital Signs Temperature 97.0 F L 07/23/19 09:29 Pulse Rate 61 07/23/19 09:29 Respiratory Rate 18 07/23/19 09:29 Blood Pressure 98/57 L 07/23/19 09:29 O2 Sat by Pulse Oximetry (%) aaox3 ambulating no acute distress Assessment: 07/23/19 10:43 withdrawal sx Plan: continue detox increase fluids librium 25mg prn
[2019-07-23] MEDS: THIAMINE HCL 100 MG TABLET (FP) PO SCH (21:42)
[2019-07-23] MEDS: QUEtiapine FUMARATE 100 MG TABLET (FP) PO SCH (21:45)
[2019-07-24] MEDS: chlordiazePOXIDE HCL 25 MG CAPSULE PO PRN (02:22)
[2019-07-24] MEDS ORDERED: chlordiazePOXIDE HCL 10 MG CAPSULE PO ONE (05:00)
[2019-07-24] MEDS: GABAPENTIN 300 MG CAPSULE (FP) PO SCH (05:44)
[2019-07-24 09:44] VITALS: BP 112/76; PULSE 70; TEMP 97.3
--- NOTE | 2019-07-24 09:58 | DS ---
[facility] Detox Discharge Summary Admission Date: 07/19/19 Discharge Date: 07/24/19 - History Present History: Alcohol Dependence, Cannabis Dependence - Physical Exam Results Vital Signs: Vital Signs Temperature 97.3 F L 07/24/19 09:44 Pulse Rate 70 07/24/19 09:44 Respiratory Rate 18 07/24/19 09:44 Blood Pressure 112/76 07/24/19 09:44 O2 Sat by Pulse Oximetry (%) Pertinent Admission Physical Exam Findings: pt arrived in withdrawals Laboratory Tests 07/20/19 07/20/19 07/20/19 07:45 07:45 07:45 WBC 6.6 RBC 4.21 Hgb 13.9 Hct 39.7 MCV 94.2 MCH 33.1 MCHC 35.1 RDW 14.7 Plt Count 233 MPV 8.3 Sodium 139 Potassium 3.7 Chloride 104 Carbon Dioxide 24 Anion Gap 10 BUN 10.9 Creatinine 0.8 Est GFR (CKD-EPI)AfAm 129.51 Est GFR (CKD-EPI)NonAf 111.74 Random Glucose 99 Calcium 8.9 Total Bilirubin 0.3 AST 17 ALT 26 Alkaline Phosphatase 74 Total Protein 6.5 Albumin 3.4 Valproic Acid 5.2 L RPR Titer 07/20/19 07:45 WBC RBC Hgb Hct MCV MCH MCHC RDW Plt Count MPV Sodium Potassium Chloride Carbon Dioxide Anion Gap BUN Creatinine Est GFR (CKD-EPI)AfAm Est GFR (CKD-EPI)NonAf Random Glucose Calcium Total Bilirubin AST ALT Alkaline Phosphatase Total Protein Albumin Valproic Acid RPR Titer Nonreactive aaox3 ambulating no acute distress - Treatment Hospital Course: Detox Protocol Followed, Detoxed Safely, Responded well, Discharged Condition Good, Rehab Referral Accepted Patient has Accepted a Rehab Referral to: pt referred to inpatient rehab at [facility]. - Medication Discharge Medications: Ambulatory Orders Divalproex [Depakote -] 750 mg PO TID 01/18/19 Quetiapine Fumarate [Seroquel -] 200 mg PO HS #30 tablet 01/20/19 Gabapentin 300 mg PO TID #45 capsule 01/21/19 Sertraline HCl [Zoloft] 100 mg PO DAILY #15 tablet 01/21/19 levETIRAcetam [Keppra -] 250 mg PO BID 30 Days #60 tablet 01/21/19 - Diagnosis (1) Cannabis abuse Current Visit: Yes Status: Chronic (2) Substance-induced sleep disorder Current Visit: Yes Status: Acute (3) Uncomplicated alcohol withdrawal Current Visit: Yes Status: Chronic (4) Asthma Current Visit: Yes Status: Chronic Qualifiers: Asthma severity: unspecified severity Asthma persistence: unspecified Asthma complication type: uncomplicated Qualified Code(s): J45.909 - Unspecified asthma, uncomplicated (5) Bipolar disorder Current Visit: Yes Status: Chronic (6) COPD (chronic obstructive pulmonary disease) Current Visit: Yes Status: Chronic Qualifiers: COPD type: unspecified COPD Qualified Code(s): J44.9 - Chronic obstructive pulmonary disease, unspecified (7) Hypercholesterolemia Current Visit: Yes Status: Chronic (8) Hyperthyroidism Current Visit: Yes Status: Chronic (9) Nicotine dependence Current Visit: Yes Status: Chronic Qualifiers: Nicotine product type: cigarettes Substance use status: uncomplicated Qualified Code(s): F17.210 - Nicotine dependence, cigarettes, uncomplicated (10) Seizure disorder Current Visit: Yes Status: Chronic (11) Drug-induced mood disorder Current Visit: No Status: Acute (12) Hypothyroidism Current Visit: No Status: Chronic Qualifiers: Hypothyroidism type: unspecified Qualified Code(s): E03.9 - Hypothyroidism , unspecified (13) Insomnia Current Visit: No Status: Acute Qualifiers: Insomnia type: unspecified Qualified Code(s): G47.00 - Insomnia, unspecified (14) Substance induced mood disorder Current Visit: No Status: Acute (15) History of bipolar disorder Current Visit: No Status: Chronic (16) Nicotine dependence Current Visit: Yes Status: Chronic Qualifiers: Nicotine product type: cigarettes Substance use status: uncomplicated Qualified Code(s): F17.210 - Nicotine dependence, cigarettes, uncomplicated (17) Non-compliant patient Current Visit: Yes Status: Chronic
[2019-07-24] MEDS ORDERED: LEVOTHYROXINE NA 25 MCG TABLET (FP) PO ONE (10:01)
--- NOTE | 2019-07-24 10:30 | PN ---
S Progress Note Note: pt just reminded provider that he has a h/o of hypothyroidism and forgot to tell admitting doctor that he takes 50mcq daily. pt was ordered his synthroid 50mcq today.
[2019-07-24] MEDS: levETIRAcetam 500 MG TABLET (FP) PO SCH (10:51)
[2019-07-24] MEDS: PRENATAL VITAMINS W/ FOLIC ACID TABLET (FP) PO SCH (10:52)
[2019-07-24] MEDS: SERTRALINE HCL 50 MG TABLET (FP) PO SCH (10:52)
[2019-07-24] MEDS: NICOTINE 21 MG/24 HOURS TOPICAL PATCH TD SCH (10:52)
[2019-07-25] MEDS ORDERED: LEVOTHYROXINE NA 25 MCG TABLET (FP) PO SCH (07:00)
== END 2019-07-24 12:47 | disposition other institution (70) | DRG 775 ==
LOC: YASAS 08:53 → Y6N 10:27
PROVIDERS: ADMIT Surgery; ATTEND Surgery
PROC: HZ2ZZZZ Detoxification Services for Substance Abuse Treatment (ICD-10-PCS; principal; 2019-07-19)
DX: F10.230 Alcohol dependence with withdrawal, uncomplicated (principal); F12.10 Cannabis abuse, uncomplicated; F17.210 Nicotine dependence, cigarettes, uncomplicated; F19.282 Other psychoactive substance dependence with psychoactive substance-induced sleep disorder; F19.24 Other psychoactive substance dependence with psychoactive substance-induced mood disorder; F41.0 Panic disorder [episodic paroxysmal anxiety]; J44.9 Chronic obstructive pulmonary disease, unspecified; E05.90 Thyrotoxicosis, unspecified without thyrotoxic crisis or storm; E78.00 Pure hypercholesterolemia, unspecified; G40.909 Epilepsy, unspecified, not intractable, without status epilepticus; Z91.5 Personal history of self-harm; Z91.19 Patient's noncompliance with other medical treatment and regimen
CPT/HCPCS: 36415; 80053; 80164; 85027; 86593; Q0162

== ENCOUNTER 2019-07-24 13:15 | Inpatient (IN) | payer OTHER ==
--- NOTE | 2019-07-24 12:27 | HP ---
[facility] Rehab Assess/Revision - Admission History Admitted to Rehab [facility] - Findings Detox History & Physical reviewed: Yes Concur with findings: Yes Inpatient Rehab Admission - Rehab Decision to Admit Inpatient rehab admission?: Yes - Initial Determination Are CD services needed?: Yes Free of communicable disease: Yes Not in need of hospitalization: Yes - Rehab Admission Criteria Previous failed treatment: Yes Poor recovery environment: Yes Comorbidities: Yes Lacks judgement: Yes Patient is meeting Inpatient Rehab admission criteria:: Yes
[2019-07-24] MEDS ORDERED: MAGNESIUM CITRATE 300 ML BOTTLE PO PRN (14:42)
[2019-07-24] MEDS ORDERED: ACETAMINOPHEN 325 MG TABLET (FP) PO PRN (14:42)
[2019-07-24] MEDS ORDERED: MAGNESIUM HYDROX 2400MG/30ML ORAL SUSPENSION 30 ML CUP PO PRN (14:42)
[2019-07-24] MEDS ORDERED: MENTHOL/PHENOL 1 EACH UD MM PRN (14:42)
[2019-07-24] MEDS ORDERED: guaiFENesin 200 MG/10 ML 10 ML UNIT-DOSE CUPS PO PRN (14:42)
[2019-07-24] MEDS ORDERED: P-EPHED 60MG/TRIPROLIDI 2.5MG TABLET PO PRN (14:42)
[2019-07-24] MEDS ORDERED: IBUPROFEN 400 MG TABLET (FP) PO PRN (14:42)
[2019-07-24] MEDS: ATORVASTATIN CA 20 MG TABLET (FP) PO SCH (21:56)
[2019-07-24] MEDS: levETIRAcetam 250 MG TABLET (FP) PO SCH (21:56)
[2019-07-24] MEDS: GABAPENTIN 300 MG CAPSULE (FP) PO SCH (21:56)
[2019-07-24] MEDS: THIAMINE HCL 100 MG TABLET (FP) PO SCH (21:57)
[2019-07-24] MEDS ORDERED: QUEtiapine FUMARATE 100 MG TABLET (FP) PO SCH (22:00)
[2019-07-25] MEDS: LEVOTHYROXINE NA 25 MCG TABLET (FP) PO SCH (06:21)
[2019-07-25] MEDS: GABAPENTIN 300 MG CAPSULE (FP) PO SCH ×3 (06:21→21:17)
[2019-07-25] MEDS ORDERED: QUEtiapine FUMARATE 100 MG TABLET (FP) PO SCH (10:00)
--- NOTE | 2019-07-25 10:11 | CONSULT ---
[facility] Psychiatric Consult - Data Date of interview: 07/25/19 Admission source: [facility] Identifying data: Patient is a 39 year old single male, without children, unemployed, resides in a detention, and is supported by public assistance. This is patient's first admission to rehab at [facility]. Patient admitted to for alcohol dependence. Substance Abuse History: - Smoking Cessation. Smoking history: Current every day smoker. Have you smoked in the past 12 months: Yes. Aproximately how many cigarettes per day: 40. Hx Chewing Tobacco Use: No. Initiated information on smoking cessation: Yes. 'Breaking Loose' booklet given: 07/19/19. - Substance & Tx. History. Hx Alcohol Use: Yes. Hx Substance Use: Yes. Substance Use Type : Alcohol, Marijuana. Hx Substance Use Treatment: Yes (DETOX: 12/2018 ). - Substances abused. Alcohol. Substance route: Oral. Frequency: Daily. Amount used: vodka 3 pints, 6 pack of 24 oz Beers. Age of first use: 12. Date of last use: 07/18/19. Marijuana/Hashish. Frequency: 1-2 times per week. Amount used: 1 joint. Age of first use: 14. Date of last use: 07/05/19 Medical History: Significant for chronic bronchitis, hyperthyroidism, dyslipidemia and a history of seizure disorder Psychiatric History: Patient's first psychiatric contact was at age 9-10 due to temper tantrums, behavioral issues and anxiety after his father's when he was 6 years old. Mr. Cardona reports history of previous psychiatric hospitalizations at various facilities including [facility], [facility], [facility]. Throughout the years he has received several diagnosis including Bipolar disorder, MDD, PTSD, panic disorder with agoraphobia and has been prescribed various medications which include Gabapentin, Valproate, quetiapine, Sertraline, Minipress etc. He admits to a pattern of inconsistent adherence to [employer] care. Reports that he received outpatient psychatric treatment at [facility] in [place]. Mr. Haji is currently provided with outpatient psychiatric care at the detention he resides in but reports not seeing the psychiatrist in two months. He reports being prescribed, Depakote (unknown dose), Gabapentin 300 mg/ tid, Seroquel 25 mg/day & 200 mg/hs and Zoloft 100mg. He reports receiving refills of medications from [facility] detox/rehab unit. Patient seen by Dr. Cary and was resumed on zoloft 100mg + gabapentin 300mg BID + Seroquel 100mg HS. Mr. Cardona reports one pevious suicide attempt via [place] in 2013 (girlfriend called EMS). Reportedly he no longer owns a firearm (was confiscated by the Police). Reports that he last took prescribed psychotropic medications 2 weeks ago. At present, denies experiencing psychotic, manic symptoms, S/H ideations. Patient requesting an increase in seroquel. Physical/Sexual Abuse/Trauma History: denies. Mental Status Exam - Mental Status Exam Alert and Oriented to: Time, Place, Person Cognitive Function: Good Patient Appearance: Well Groomed Mood: Euthymic Affect: Mood Congruent Patient Behavior: Cooperative Speech Pattern: Appropriate Voice Loudness: Normal Thought Process: Goal Oriented Thought Disorder: Not Present Hallucinations: Denies Suicidal Ideation: Denies Homicidal Ideation: Denies Insight/Judgement: Poor Sleep: Poorly Appetite: Fair Muscle strength/Tone: Normal Gait/Station: Normal Psychiatric Findings - Problem List ([place] 1, 2,3) (1) Bipolar disorder Current Visit: Yes Status: Chronic (2) Alcohol dependence Current Visit: Yes Status: Acute (3) Nicotine dependence Current Visit: Yes Status: Chronic Qualifiers: Nicotine product type: cigarettes Substance use status: uncomplicated Qualified Code(s): F17.210 - Nicotine dependence, cigarettes, uncomplicated (4) Substance-induced sleep disorder Current Visit: Yes Status: Acute - Initial Treatment Plan Initial Treatment Plan: Psychoeducation provided. Rehab in progress. Youth Teacher able to contact [facility] at [phone] and able to speak the pharmacist. As per the pharmacist patient received a prescription of Zyprexa 5mg (February 2019), Zoloft 50mg (04/16/19) Depakote 500mg TID (04/16/19) + Seroquel 200mg (04/16/19). Will continue zoloft 100mg + Gabapentin 300mg TID. Will discontinue seroquel 100mg and order seroquel 200mg HS. Will not resume depakote at this time as patient has not received medication in several months. In addition there is no clinical indication in resuming Depakote. Benefits and side effects discussed. Verbal consent given
[2019-07-25] MEDS: NICOTINE 21 MG/24 HOURS TOPICAL PATCH TD SCH (10:20)
[2019-07-25] MEDS: PRENATAL VITAMINS W/ FOLIC ACID TABLET (FP) PO SCH (10:20)
[2019-07-25] MEDS: SERTRALINE HCL 50 MG TABLET (FP) PO SCH (10:20)
[2019-07-25] MEDS: levETIRAcetam 250 MG TABLET (FP) PO SCH ×2 (10:20→21:17)
[2019-07-25] MEDS: NICOTINE POLACRILEX 4 MG GUM BUC PRN (10:24)
[2019-07-25] MEDS: ATORVASTATIN CA 20 MG TABLET (FP) PO SCH (21:17)
[2019-07-25] MEDS: QUEtiapine FUMARATE 200 MG TABLET PO SCH (21:17)
[2019-07-25] MEDS: THIAMINE HCL 100 MG TABLET (FP) PO SCH (21:17)
[2019-07-26] MEDS: GABAPENTIN 300 MG CAPSULE (FP) PO SCH ×3 (06:12→21:15)
[2019-07-26] MEDS: LEVOTHYROXINE NA 25 MCG TABLET (FP) PO SCH (06:12)
[2019-07-26] MEDS: SERTRALINE HCL 50 MG TABLET (FP) PO SCH (09:51)
[2019-07-26] MEDS: NICOTINE 21 MG/24 HOURS TOPICAL PATCH TD SCH (09:51)
[2019-07-26] MEDS: PRENATAL VITAMINS W/ FOLIC ACID TABLET (FP) PO SCH (09:51)
[2019-07-26] MEDS: levETIRAcetam 250 MG TABLET (FP) PO SCH ×2 (09:51→21:15)
[2019-07-26] MEDS: NICOTINE POLACRILEX 4 MG GUM BUC PRN (09:53)
[2019-07-26] MEDS: ATORVASTATIN CA 20 MG TABLET (FP) PO SCH (21:15)
[2019-07-26] MEDS: QUEtiapine FUMARATE 200 MG TABLET PO SCH (21:15)
[2019-07-26] MEDS: THIAMINE HCL 100 MG TABLET (FP) PO SCH (21:16)
[2019-07-27] MEDS: LEVOTHYROXINE NA 25 MCG TABLET (FP) PO SCH (06:34)
[2019-07-27] MEDS: GABAPENTIN 300 MG CAPSULE (FP) PO SCH ×3 (06:35→21:21)
[2019-07-27] MEDS: NICOTINE POLACRILEX 4 MG GUM BUC PRN ×3 (06:37→14:50)
[2019-07-27] MEDS: PRENATAL VITAMINS W/ FOLIC ACID TABLET (FP) PO SCH (10:07)
[2019-07-27] MEDS: NICOTINE 21 MG/24 HOURS TOPICAL PATCH TD SCH (10:08)
[2019-07-27] MEDS: SERTRALINE HCL 50 MG TABLET (FP) PO SCH (10:08)
[2019-07-27] MEDS: levETIRAcetam 250 MG TABLET (FP) PO SCH ×2 (11:00→21:21)
[2019-07-27] MEDS: THIAMINE HCL 100 MG TABLET (FP) PO SCH (21:21)
[2019-07-27] MEDS: QUEtiapine FUMARATE 200 MG TABLET PO SCH (21:21)
[2019-07-27] MEDS: ATORVASTATIN CA 20 MG TABLET (FP) PO SCH (21:21)
[2019-07-28] MEDS: GABAPENTIN 300 MG CAPSULE (FP) PO SCH ×3 (06:09→21:23)
[2019-07-28] MEDS: LEVOTHYROXINE NA 25 MCG TABLET (FP) PO SCH (06:09)
[2019-07-28] MEDS: NICOTINE POLACRILEX 4 MG GUM BUC PRN ×3 (06:10→21:24)
[2019-07-28] MEDS: NICOTINE 21 MG/24 HOURS TOPICAL PATCH TD SCH (10:17)
[2019-07-28] MEDS: PRENATAL VITAMINS W/ FOLIC ACID TABLET (FP) PO SCH (10:18)
[2019-07-28] MEDS: SERTRALINE HCL 50 MG TABLET (FP) PO SCH (10:18)
[2019-07-28] MEDS: levETIRAcetam 250 MG TABLET (FP) PO SCH ×2 (11:06→21:23)
[2019-07-28] MEDS: THIAMINE HCL 100 MG TABLET (FP) PO SCH (21:23)
[2019-07-28] MEDS: ATORVASTATIN CA 20 MG TABLET (FP) PO SCH (21:23)
[2019-07-28] MEDS: QUEtiapine FUMARATE 200 MG TABLET PO SCH (21:23)
[2019-07-28] MEDS: LOPERAMIDE HCL 2 MG CAPSULE PO PRN (23:01)
[2019-07-29] MEDS: GABAPENTIN 300 MG CAPSULE (FP) PO SCH ×3 (06:38→23:25)
[2019-07-29] MEDS: LOPERAMIDE HCL 2 MG CAPSULE PO PRN (06:38)
[2019-07-29] MEDS: LEVOTHYROXINE NA 25 MCG TABLET (FP) PO SCH (06:38)
[2019-07-29] MEDS: PRENATAL VITAMINS W/ FOLIC ACID TABLET (FP) PO SCH (10:15)
[2019-07-29] MEDS: SERTRALINE HCL 50 MG TABLET (FP) PO SCH (10:15)
[2019-07-29] MEDS: levETIRAcetam 250 MG TABLET (FP) PO SCH ×2 (10:15→23:24)
[2019-07-29] MEDS: NICOTINE 21 MG/24 HOURS TOPICAL PATCH TD SCH (10:16)
[2019-07-29] MEDS: NICOTINE POLACRILEX 4 MG GUM BUC PRN (10:16)
[2019-07-29] MEDS ORDERED: ONDANSETRON *ODT* 4 MG TABLET SL ONE (11:28)
[2019-07-29] MEDS ORDERED: DIPHENOXYLATE 2.5/ATROPINE.025 1 COMBO TABLET PO ONE (11:29)
--- NOTE | 2019-07-29 11:37 | PN ---
S Progress Note Note: Pt c/o frequent liquidy bowel movements with abdominal cramps x 2 days/nights. Reports about 15 episodes since last night. Received Imodium x 1 earlier this morning with no effect. Pt also c/o nausea and vomiting a few minutes ago. Denies fever,or blood in stool. Pt reports fatigue. Pt is s/p alcohol detox which was completed on [facility] on 07/24/29 and referred to rehab same day. Vital Signs - 24 hr 07/29/19 07/29/19 07/29/19 00:30 03:30 07:11 Temperature 95.0 F L Pulse Rate 83 Respiratory 18 20 18 Rate Blood Pressure 111/82 Laboratory Tests 07/25/19 07/25/19 07:30 10:00 HIV 1&2 Ag/Ab, 4th Gen Non reactive HIV 1&2 Antibody Screen Cancelled HIV P24 Antigen Cancelled Alert o x 3 oob with steady gait Cardiac:s1 s2,rrr Lungs:cta,glenis, no sob Abdomen:soft,+bs,mild generalized discomfort on palpation. Extremities:No e/c/c. A/P Diarrhea N/V Zofran 8 mg odt sl now then Q8H prn Lomotil 1 tab po now warm tea with honey/po fluids as tolerated to avoid dehydration D/w pt no diary products for now. BRAT diet if not controlled.
[2019-07-29] MEDS: MAG HYDROX/AL HYDROX/SIMETH 30 ML UNIT-DOSE CUP PO PRN (13:42)
--- NOTE | 2019-07-29 15:01 | PN ---
[facility] Progress Note Note: pt is a 39 /o male who was admitted to rehab on 07/24/19 after completing detox on for Alcohol use disorder. Pt stated this morning he has been having watery, diarrhea since 2-3 days and just started having nausea vomiting today. Reported no appetite to eat and drink for a few days since onset. Pt has a hx of HLD, hypothyroidism and Bipolar disorder. Nurse called this afternoon to report that patient still c/o severe generalized abdominal pain with cramping and not relieved with mylanta. Saw pt who states he still has nausea, vomiting but has not had any further bowel movement since after lomotil this morning. Reports fatigue- no energy to go to groups, lost appetite and has not eaten, dizziness,and feels thirsty but unable to keep anything down. Pt is in bed with some leg tremors(feeling chill) but no fever and moaning. Active Medications Generic Name Dose Route Start Last Admin Trade Name Freq PRN Reason Stop Dose Admin Acetaminophen 650 mg 07/24/19 14:42 Tylenol - PO Q4H PRN FEVER Al Hydroxide/Mg Hydroxide 30 ml 07/24/19 14:42 07/29/19 13:42 Mylanta Oral Suspension - PO 30 ml Q6H PRN Administration DYSPEPSIA Atorvastatin Calcium 20 mg 07/24/19 22:00 07/28/19 21:23 Lipitor - PO 20 mg HS WYATT Administration Eucalyptus/Menthol/Phenol/Sorbitol 1 each 07/24/19 14:42 Cepastat Lozenge - MM Q4H PRN SORE THROAT Gabapentin 300 mg 07/24/19 22:00 07/29/19 13:42 Neurontin - PO 300 mg TID WYATT Administration Guaifenesin 10 ml 07/24/19 14:42 Robitussin - PO Q6H PRN COUGH Hydroxyzine Pamoate 50 mg 07/24/19 14:42 Vistaril - PO Q4H PRN AGITATION Ibuprofen 400 mg 07/24/19 14:42 Motrin - PO Q6H PRN Pain Level 4-6 Levetiracetam 250 mg 07/24/19 22:00 07/29/19 10:15 Keppra - PO 250 mg BID WYATT Administration Levothyroxine Sodium 50 mcg 07/25/19 07:00 07/29/19 06:38 Synthroid - PO 50 mcg DAILY@0700 WYATT Administration Loperamide HCl 4 mg 07/24/19 14:42 07/29/19 06:38 Imodium - PO 4 mg Q6H PRN Administration DIARRHEA Magnesium Citrate 300 ml 07/24/19 14:42 Citroma - PO Q48H PRN CONSTIPATION Magnesium Hydroxide 30 ml 07/24/19 14:42 Milk Of Magnesia - PO DAILY PRN CONSTIPATION Melatonin 5 mg 07/24/19 22:00 Melatonin PO HS PRN INSOMNIA Nicotine 21 mg 07/25/19 10:00 07/29/19 10:16 Nicoderm Patch - TD 21 mg DAILY WYATT Administration Nicotine Polacrilex 4 mg 07/24/19 14:42 07/29/19 10:16 Nicorette Gum - BUC 4 mg Q2H PRN Administration NICOTINE REPLACEMENT RX Ondansetron HCl 8 mg 07/29/19 11:29 Zofran Odt - SL Q8H PRN NAUSEA AND/OR VOMITING Multivit/Folic Acid/Iron 1 tab 07/25/19 10:00 07/29/19 10:15 Vitamins (Sjr) - PO 1 tab DAILY WYATT Administration Pseudoephedrine/Triprolidine 1 combo 07/24/19 14:42 Actifed - PO TID PRN NASAL CONGESTION Quetiapine Fumarate 200 mg 07/25/19 22:00 07/28/19 21:23 Seroquel - PO 200 mg HS WYATT Administration Sertraline HCl 100 mg 07/25/19 10:00 07/29/19 10:15 Zoloft - PO 100 mg DAILY WYATT Administration Thiamine HCl 100 mg 07/24/19 22:00 07/28/19 21:23 Vitamin B1 - PO 100 mg HS WYATT Administration T 96.3 F; BP 104/74; Pulse 79; RR 18 ; Pulse Ox:96% RA Cardiac:s1 s2, Lungs:cta, John. Abdomen:distended,+bs-slightly hyperactive,pain on palpation, non-radiating. Extremities:No edema skin:[place]ugor fair, mm-mouth dry A/P Severe abdominal Pain Diarrhea Nausea/Vomiting R/o Dehydration Transfer via ambulance and Evaluate in [facility]. Pt may be discharged back to [facility] after stabilization to continue his Rehab treatment on . report was given to Nurse Koch.
[2019-07-29] MEDS: ATORVASTATIN CA 20 MG TABLET (FP) PO SCH (23:24)
[2019-07-29] MEDS: QUEtiapine FUMARATE 200 MG TABLET PO SCH (23:25)
[2019-07-29] MEDS: THIAMINE HCL 100 MG TABLET (FP) PO SCH (23:25)
[2019-07-30] MEDS: LOPERAMIDE HCL 2 MG CAPSULE PO PRN ×2 (02:07→14:10)
--- NOTE | 2019-07-30 02:07 | PN ---
S Progress Note Note: CLIENT RETURNS FROM [facility] AFTER BEING EVALUATED FOR SOME GI COMPLAINTS RETURNS WITH DX OF VIRAL GASTROENTRITIS RECOMMEND BRAT DIET AND TO CLINICALLY MONITOR FOR ANY WORSENING X'S. CLIENT RETURNS A/O X3 NAD
[2019-07-30] MEDS: NICOTINE POLACRILEX 4 MG GUM BUC PRN ×4 (02:08→21:25)
[2019-07-30] MEDS: LEVOTHYROXINE NA 25 MCG TABLET (FP) PO SCH (06:16)
[2019-07-30] MEDS: MAG HYDROX/AL HYDROX/SIMETH 30 ML UNIT-DOSE CUP PO PRN (06:16)
[2019-07-30] MEDS: GABAPENTIN 300 MG CAPSULE (FP) PO SCH ×3 (06:16→21:24)
[2019-07-30] MEDS: SERTRALINE HCL 50 MG TABLET (FP) PO SCH (10:21)
[2019-07-30] MEDS: levETIRAcetam 250 MG TABLET (FP) PO SCH ×2 (10:21→21:24)
[2019-07-30] MEDS: PRENATAL VITAMINS W/ FOLIC ACID TABLET (FP) PO SCH (10:21)
[2019-07-30] MEDS: NICOTINE 21 MG/24 HOURS TOPICAL PATCH TD SCH (10:22)
[2019-07-30] MEDS: ONDANSETRON *ODT* 4 MG TABLET SL PRN (14:10)
[2019-07-30] MEDS: THIAMINE HCL 100 MG TABLET (FP) PO SCH (21:24)
[2019-07-30] MEDS: ATORVASTATIN CA 20 MG TABLET (FP) PO SCH (21:24)
[2019-07-30] MEDS: QUEtiapine FUMARATE 200 MG TABLET PO SCH (21:24)
[2019-07-31] MEDS: GABAPENTIN 300 MG CAPSULE (FP) PO SCH ×3 (06:09→21:20)
[2019-07-31] MEDS: LEVOTHYROXINE NA 25 MCG TABLET (FP) PO SCH (06:10)
[2019-07-31] MEDS: NICOTINE POLACRILEX 4 MG GUM BUC PRN ×2 (06:12→21:21)
[2019-07-31] MEDS: SERTRALINE HCL 50 MG TABLET (FP) PO SCH (10:59)
[2019-07-31] MEDS: levETIRAcetam 250 MG TABLET (FP) PO SCH ×2 (10:59→21:19)
[2019-07-31] MEDS: NICOTINE 21 MG/24 HOURS TOPICAL PATCH TD SCH (11:00)
[2019-07-31] MEDS: PRENATAL VITAMINS W/ FOLIC ACID TABLET (FP) PO SCH (11:00)
--- NOTE | 2019-07-31 11:55 | PN ---
S Progress Note Note: Pt reports he has not had any bowel movements today. reports last bm was yesterday and not watery. However, he reports intermittent nausea with no vomiting. Zofran given prn as directed. Requesting to d/c BRAT diet to regular. Vital signs 07/31/19 07/31/19 07/31/19 00:30 03:30 07:09 Temperature 97.6 F Pulse Rate 89 Respiratory 18 18 18 Rate Blood Pressure 113/66 Alert o x 3 Abdomen:soft,nt,nd A/P diarrhea resolved per pt Plan:d/c BRAT diet d/w pt will resume if sx returns. Pt agreed with poc.
[2019-07-31] MEDS: ATORVASTATIN CA 20 MG TABLET (FP) PO SCH (21:20)
[2019-07-31] MEDS: QUEtiapine FUMARATE 200 MG TABLET PO SCH (21:20)
[2019-07-31] MEDS: THIAMINE HCL 100 MG TABLET (FP) PO SCH (21:20)
[2019-07-31] MEDS: MELATONIN 5 MG TABLETS PO PRN (21:21)
[2019-08-01] MEDS: GABAPENTIN 300 MG CAPSULE (FP) PO SCH ×3 (06:25→21:21)
[2019-08-01] MEDS: NICOTINE POLACRILEX 4 MG GUM BUC PRN ×3 (06:28→21:21)
[2019-08-01] MEDS: LEVOTHYROXINE NA 25 MCG TABLET (FP) PO SCH (06:54)
[2019-08-01] MEDS: PRENATAL VITAMINS W/ FOLIC ACID TABLET (FP) PO SCH (09:43)
[2019-08-01] MEDS: levETIRAcetam 250 MG TABLET (FP) PO SCH ×2 (09:43→21:22)
[2019-08-01] MEDS: NICOTINE 21 MG/24 HOURS TOPICAL PATCH TD SCH (09:43)
[2019-08-01] MEDS: SERTRALINE HCL 50 MG TABLET (FP) PO SCH (09:43)
[2019-08-01] MEDS: ONDANSETRON *ODT* 4 MG TABLET SL PRN (09:44)
[2019-08-01] MEDS: MELATONIN 5 MG TABLETS PO PRN (21:21)
[2019-08-01] MEDS: THIAMINE HCL 100 MG TABLET (FP) PO SCH (21:21)
[2019-08-01] MEDS: QUEtiapine FUMARATE 200 MG TABLET PO SCH (21:21)
[2019-08-01] MEDS: ATORVASTATIN CA 20 MG TABLET (FP) PO SCH (21:22)
[2019-08-02] MEDS: GABAPENTIN 300 MG CAPSULE (FP) PO SCH ×3 (06:10→21:15)
[2019-08-02] MEDS: LEVOTHYROXINE NA 25 MCG TABLET (FP) PO SCH (06:41)
[2019-08-02] MEDS: NICOTINE 21 MG/24 HOURS TOPICAL PATCH TD SCH (09:58)
[2019-08-02] MEDS: SERTRALINE HCL 50 MG TABLET (FP) PO SCH (09:58)
[2019-08-02] MEDS: PRENATAL VITAMINS W/ FOLIC ACID TABLET (FP) PO SCH (09:58)
[2019-08-02] MEDS: levETIRAcetam 250 MG TABLET (FP) PO SCH ×2 (09:58→21:15)
[2019-08-02] MEDS: ONDANSETRON *ODT* 4 MG TABLET SL PRN (10:01)
[2019-08-02] MEDS: NICOTINE POLACRILEX 4 MG GUM BUC PRN ×2 (10:02→21:16)
[2019-08-02] MEDS: THIAMINE HCL 100 MG TABLET (FP) PO SCH (21:15)
[2019-08-02] MEDS: ATORVASTATIN CA 20 MG TABLET (FP) PO SCH (21:15)
[2019-08-02] MEDS: QUEtiapine FUMARATE 200 MG TABLET PO SCH (21:15)
[2019-08-03] MEDS: GABAPENTIN 300 MG CAPSULE (FP) PO SCH ×3 (06:08→21:13)
[2019-08-03] MEDS: LEVOTHYROXINE NA 25 MCG TABLET (FP) PO SCH (07:49)
[2019-08-03] MEDS: NICOTINE POLACRILEX 4 MG GUM BUC PRN ×3 (07:52→21:13)
[2019-08-03] MEDS: LOPERAMIDE HCL 2 MG CAPSULE PO PRN ×2 (09:03→14:50)
[2019-08-03] MEDS: SERTRALINE HCL 50 MG TABLET (FP) PO SCH (10:16)
[2019-08-03] MEDS: levETIRAcetam 250 MG TABLET (FP) PO SCH ×2 (10:16→21:13)
[2019-08-03] MEDS: NICOTINE 21 MG/24 HOURS TOPICAL PATCH TD SCH (10:16)
[2019-08-03] MEDS: PRENATAL VITAMINS W/ FOLIC ACID TABLET (FP) PO SCH (10:16)
[2019-08-03] MEDS: BISMUTH SUBSALICYLATE 524 MG/30 ML UD PO PRN (11:58)
[2019-08-03] MEDS: ONDANSETRON *ODT* 4 MG TABLET SL PRN (16:59)
[2019-08-03] MEDS: THIAMINE HCL 100 MG TABLET (FP) PO SCH (21:13)
[2019-08-03] MEDS: ATORVASTATIN CA 20 MG TABLET (FP) PO SCH (21:13)
[2019-08-03] MEDS: QUEtiapine FUMARATE 200 MG TABLET PO SCH (21:13)
[2019-08-03] MEDS: MELATONIN 5 MG TABLETS PO PRN (21:13)
[2019-08-04] MEDS: LEVOTHYROXINE NA 25 MCG TABLET (FP) PO SCH (06:41)
[2019-08-04] MEDS: NICOTINE POLACRILEX 4 MG GUM BUC PRN ×4 (06:41→21:26)
[2019-08-04] MEDS: GABAPENTIN 300 MG CAPSULE (FP) PO SCH ×3 (06:41→21:25)
[2019-08-04] MEDS: ONDANSETRON *ODT* 4 MG TABLET SL PRN (08:03)
[2019-08-04] MEDS: NICOTINE 21 MG/24 HOURS TOPICAL PATCH TD SCH (10:36)
[2019-08-04] MEDS: PRENATAL VITAMINS W/ FOLIC ACID TABLET (FP) PO SCH (10:37)
[2019-08-04] MEDS: levETIRAcetam 250 MG TABLET (FP) PO SCH ×2 (10:37→21:25)
[2019-08-04] MEDS: SERTRALINE HCL 50 MG TABLET (FP) PO SCH (10:37)
[2019-08-04] MEDS: BISMUTH SUBSALICYLATE 524 MG/30 ML UD PO PRN ×2 (10:51→21:26)
--- NOTE | 2019-08-04 13:54 | PN ---
[facility] Progress Note Note: Pt states he is still having diarrhea- going to the bathroom.Taking pepto bismol. Drinking plenty of fluids to prevent dehydration Says he would like to take the day off- will give pass. Pt states Depakote was stopped suddenly and has not felt right since then. Will reconsult MH
[2019-08-04] MEDS: QUEtiapine FUMARATE 200 MG TABLET PO SCH (21:25)
[2019-08-04] MEDS: ATORVASTATIN CA 20 MG TABLET (FP) PO SCH (21:25)
[2019-08-04] MEDS: THIAMINE HCL 100 MG TABLET (FP) PO SCH (21:25)
[2019-08-05] MEDS: NICOTINE POLACRILEX 4 MG GUM BUC PRN ×3 (06:10→21:39)
[2019-08-05] MEDS: LEVOTHYROXINE NA 25 MCG TABLET (FP) PO SCH (06:10)
[2019-08-05] MEDS: GABAPENTIN 300 MG CAPSULE (FP) PO SCH ×3 (06:10→21:38)
--- NOTE | 2019-08-05 09:51 | PN ---
S Progress Note Note: Psychiatric nurse practitioner note: Psychiatric re consultation ordered. Supervisor Purification approach patient for consultation but patient reports not feeling well. Mr. Haji's request to be seen later as he does not feel well at the moment. Psychiatric consultation deferred.
[2019-08-05] MEDS: SERTRALINE HCL 50 MG TABLET (FP) PO SCH (10:18)
[2019-08-05] MEDS: NICOTINE 21 MG/24 HOURS TOPICAL PATCH TD SCH (10:18)
[2019-08-05] MEDS: PRENATAL VITAMINS W/ FOLIC ACID TABLET (FP) PO SCH (10:18)
[2019-08-05] MEDS: levETIRAcetam 250 MG TABLET (FP) PO SCH ×2 (10:19→21:37)
[2019-08-05] MEDS: hydrOXYzine PAMOATE 50 MG CAPSULE (FP) PO PRN (10:20)
[2019-08-05] MEDS: ONDANSETRON *ODT* 4 MG TABLET SL PRN ×2 (10:22→12:25)
--- NOTE | 2019-08-05 11:55 | PN ---
Psychiatric Progress Note Vital Signs: Vital Signs Period Temp Pulse Resp BP Sys/Ceron Pulse Ox Last 24 Hr 97.9 F 86 16-18 114/77 Date of Session: 08/05/19 Chief Complaint:: "I'm not feeling well because my medication was stopped' HPI: Patient with history of Bipolar Disorder, alcohol and cannabis use admitted to rehab on 07/24/19. Consultation requested because he is allegedly experiencing discontinuation syndrome from abruptly stopping Depakote Current Medications: Active Medications Generic Name Dose Route Start Last Admin Trade Name Freq PRN Reason Stop Dose Admin Acetaminophen 650 mg 07/24/19 14:42 Tylenol - PO Q4H PRN FEVER Al Hydroxide/Mg Hydroxide 30 ml 07/24/19 14:42 07/30/19 06:16 Mylanta Oral Suspension - PO 30 ml Q6H PRN Administration DYSPEPSIA Atorvastatin Calcium 20 mg 07/24/19 22:00 08/04/19 21:25 Lipitor - PO 20 mg HS WYATT Administration Bismuth Subsalicylate 524 mg 08/03/19 10:33 08/04/19 21:26 Pepto-Bismol - PO 524 mg BID PRN Administration DIARRHEA Divalproex Sodium 500 mg 08/05/19 12:00 Depakote - PO BID WYATT Eucalyptus/Menthol/Phenol/Sorbitol 1 each 07/24/19 14:42 Cepastat Lozenge - MM Q4H PRN SORE THROAT Gabapentin 600 mg 08/05/19 14:00 Neurontin - PO TID WYATT Guaifenesin 10 ml 07/24/19 14:42 Robitussin - PO Q6H PRN COUGH Hydroxyzine Pamoate 50 mg 07/24/19 14:42 08/05/19 10:20 Vistaril - PO 50 mg Q4H PRN Administration AGITATION Ibuprofen 400 mg 07/24/19 14:42 Motrin - PO Q6H PRN Pain Level 4-6 Levetiracetam 250 mg 07/24/19 22:00 08/05/19 10:19 Keppra - PO 250 mg BID WYATT Administration Levothyroxine Sodium 50 mcg 07/25/19 07:00 08/05/19 06:10 Synthroid - PO 50 mcg DAILY@0700 WYATT Administration Loperamide HCl 4 mg 07/24/19 14:42 08/03/19 14:50 Imodium - PO 4 mg Q6H PRN Administration DIARRHEA Magnesium Citrate 300 ml 07/24/19 14:42 Citroma - PO Q48H PRN CONSTIPATION Magnesium Hydroxide 30 ml 07/24/19 14:42 08/03/19 06:10 Milk Of Magnesia - PO 30 ml DAILY PRN Administration CONSTIPATION Melatonin 5 mg 07/24/19 22:00 08/03/19 21:13 Melatonin PO 5 mg HS PRN Administration INSOMNIA Nicotine 21 mg 07/25/19 10:00 08/05/19 10:18 Nicoderm Patch - TD 21 mg DAILY WYATT Administration Nicotine Polacrilex 4 mg 07/24/19 14:42 08/05/19 10:19 Nicorette Gum - BUC 4 mg Q2H PRN Administration NICOTINE REPLACEMENT RX Olanzapine 5 mg 08/05/19 22:00 Zyprexa - PO HS WYATT Ondansetron HCl 8 mg 07/29/19 11:29 08/05/19 10:22 Zofran Odt - SL 8 mg Q8H PRN Administration NAUSEA AND/OR VOMITING Multivit/Folic Acid/Iron 1 tab 07/25/19 10:00 08/05/19 10:18 Vitamins (Sjr) - PO 1 tab DAILY WYATT Administration Pseudoephedrine/Triprolidine 1 combo 07/24/19 14:42 Actifed - PO TID PRN NASAL CONGESTION Quetiapine Fumarate 200 mg 07/25/19 22:00 08/04/19 21:25 Seroquel - PO 200 mg HS WYATT Administration Sertraline HCl 100 mg 07/25/19 10:00 08/05/19 10:18 Zoloft - PO 100 mg DAILY WYATT Administration Thiamine HCl 100 mg 07/24/19 22:00 08/04/19 21:25 Vitamin B1 - PO 100 mg HS WYATT Administration Medication(s) Change(s): 1) Discontinue Gabapentin 300 mg po TID. 2) Start Depakote 500 mg po BID and Gabapentin 600 mg po TID Lab tests ordered: Yes Lab tests reviewed: Yes Provider note:: SILVIA Ocampo's note read and appreciated. Patient seen and evaluated. Patient told credit underwriter that he has not been feeling well since he stopped taking Depakote. He cannot describe the way he feels only telling credit underwriter something is not right in his head. Patient was originally seen by credit underwriter on 07/20/19 while amitted to detox in this facility. Then he told credit underwriter that he was seeing a psychiatrist at the longterm and he was prescribed Depakote , Zoloft, Gabapentin 300 mg/tid, Seroquel 25 mg/day & 200 mg/hs. He had no recollection of Depakote and Zoloft dosage. He also told credit underwriter that he last took these medications 2 weeks prior to his admission in detox which was . Gabapentin were resumed and Seroquel dosage was modified to 100 mg/day & 200 mg/hs. Patient reports now that he fills his scripts at [facility]. Pharmacy [phone]. Homeowner Association Manager was told that pharmacy received scripts for patient on 07/17/19 that were never filled. These scripts are for Depakote ER 1500 mg/hs, Gabapentin 600 mg/tid, Seroquel 100 g/hs and Zyprexa 5 mg/hs. Mental Status Exam - Mental Status Exam Alert and Oriented to: Time, Place, Person Cognitive Function: Fair Patient Appearance: Well Groomed Mood: Depressed, Anxious Affect: Appropriate Patient Behavior: Cooperative (mello) Speech Pattern: Clear Voice Loudness: Normal Thought Process: Intact, Goal Oriented Thought Disorder: Not Present Hallucinations: Denies Suicidal Ideation: Denies Homicidal Ideation: Denies Insight/Judgement: Fair Sleep: Fair Appetite: Good Muscle strength/Tone: Normal Gait/Station: Normal Psychiatric Treatment Plan - Problem List (1) Bipolar disorder Current Visit: Yes (2) Substance induced mood disorder Current Visit: No (3) Substance-induced sleep disorder Current Visit: Yes (4) Alcohol dependence Current Visit: Yes (5) Cannabis abuse Current Visit: No (6) Nicotine dependence Current Visit: Yes Qualifiers: Nicotine product type: cigarettes Substance use status: uncomplicated Qualified Code(s): F17.210 - Nicotine dependence, cigarettes, uncomplicated (7) Asthma Current Visit: No Qualifiers: Asthma severity: unspecified severity Asthma persistence: unspecified Asthma complication type: uncomplicated Qualified Code(s): J45.909 - Unspecified asthma, uncomplicated (8) COPD (chronic obstructive pulmonary disease) Current Visit: No Qualifiers: COPD type: unspecified COPD Qualified Code(s): J44.9 - Chronic obstructive pulmonary disease, unspecified (9) Hypercholesterolemia Current Visit: No (10) Hyperthyroidism Current Visit: No (11) Seizure disorder Current Visit: No Initial treatment plan: Patient reported stopping Depakote 2 weeks prior to coming to his admission to inpatient detox in this facility on 07/19/19. It is highly unlikely for patient ton experience discontinuation syndrome after such a long time. Also Depakote. unlike Paxil, Efffexor is not known for this type of syndrome following abrupt discontinuation. In any case, Patient will be restarted on Depakote 500 mg/bid and Gapapentin readjusted to 600 mg/tid. Seroquel as currently ordered will be continued
[2019-08-05] MEDS ORDERED: DIPHENOXYLATE 2.5/ATROPINE.025 1 COMBO TABLET PO ONE (12:20)
[2019-08-05] MEDS: DIVALPROEX SODIUM 500 MG TABLET E.C. PO SCH ×2 (12:25→21:37)
--- NOTE | 2019-08-05 14:24 | PN ---
[facility] Progress Note Note: Pt reports he is still having diarrhea x 1 and nausea but no vomiting today and requesting something different from imodium. Diarrhea appears to have resolved last week after return from the ER and while on BRAT diet. No c/o abdominal pain verbalized at this time. Vital Signs 08/05/19 06:42 Temperature 97.9 F Pulse Rate 86 Respiratory 16 Rate Blood Pressure 114/77 Laboratory Tests 07/25/19 07/25/19 07:30 10:00 HIV 1&2 Ag/Ab, 4th Gen Non reactive HIV 1&2 Antibody Screen Cancelled HIV P24 Antigen Cancelled Alert o x 3 oob with steady gait A/P diarrhea Gastroenteritis Lomotil x 1 now D/w pt to follow up with staff for future bm for proper assessment.
[2019-08-05] MEDS: ATORVASTATIN CA 20 MG TABLET (FP) PO SCH (21:37)
[2019-08-05] MEDS: QUEtiapine FUMARATE 200 MG TABLET PO SCH (21:38)
[2019-08-05] MEDS: THIAMINE HCL 100 MG TABLET (FP) PO SCH (21:38)
[2019-08-05] MEDS ORDERED: OLANZapine 5 MG TABLET PO SCH (22:00)
[2019-08-06] MEDS: LEVOTHYROXINE NA 25 MCG TABLET (FP) PO SCH (06:18)
[2019-08-06] MEDS: GABAPENTIN 300 MG CAPSULE (FP) PO SCH ×3 (06:18→21:27)
[2019-08-06] MEDS: levETIRAcetam 250 MG TABLET (FP) PO SCH ×2 (10:20→21:27)
[2019-08-06] MEDS: NICOTINE 21 MG/24 HOURS TOPICAL PATCH TD SCH (10:20)
[2019-08-06] MEDS: DIVALPROEX SODIUM 500 MG TABLET E.C. PO SCH ×2 (10:20→21:27)
[2019-08-06] MEDS: SERTRALINE HCL 50 MG TABLET (FP) PO SCH (10:20)
[2019-08-06] MEDS: PRENATAL VITAMINS W/ FOLIC ACID TABLET (FP) PO SCH (10:20)
[2019-08-06] MEDS: NICOTINE POLACRILEX 4 MG GUM BUC PRN ×3 (10:21→18:28)
[2019-08-06] MEDS: THIAMINE HCL 100 MG TABLET (FP) PO SCH (21:27)
[2019-08-06] MEDS: QUEtiapine FUMARATE 200 MG TABLET PO SCH (21:27)
[2019-08-06] MEDS: ATORVASTATIN CA 20 MG TABLET (FP) PO SCH (21:27)
[2019-08-06] MEDS: MELATONIN 5 MG TABLETS PO PRN (21:29)
[2019-08-07] MEDS: GABAPENTIN 300 MG CAPSULE (FP) PO SCH ×3 (06:30→21:16)
[2019-08-07] MEDS: NICOTINE POLACRILEX 4 MG GUM BUC PRN ×5 (06:30→21:17)
[2019-08-07] MEDS: LEVOTHYROXINE NA 25 MCG TABLET (FP) PO SCH (07:43)
[2019-08-07] MEDS: DIVALPROEX SODIUM 500 MG TABLET E.C. PO SCH ×2 (10:09→21:16)
[2019-08-07] MEDS: PRENATAL VITAMINS W/ FOLIC ACID TABLET (FP) PO SCH (10:09)
[2019-08-07] MEDS: SERTRALINE HCL 50 MG TABLET (FP) PO SCH (10:10)
[2019-08-07] MEDS: levETIRAcetam 250 MG TABLET (FP) PO SCH ×2 (10:10→21:16)
[2019-08-07] MEDS: NICOTINE 21 MG/24 HOURS TOPICAL PATCH TD SCH (10:10)
[2019-08-07] MEDS: THIAMINE HCL 100 MG TABLET (FP) PO SCH (21:16)
[2019-08-07] MEDS: ATORVASTATIN CA 20 MG TABLET (FP) PO SCH (21:16)
[2019-08-07] MEDS: QUEtiapine FUMARATE 200 MG TABLET PO SCH (21:16)
[2019-08-08] MEDS: NICOTINE POLACRILEX 4 MG GUM BUC PRN ×5 (06:24→21:21)
[2019-08-08] MEDS: GABAPENTIN 300 MG CAPSULE (FP) PO SCH ×3 (06:24→21:19)
[2019-08-08] MEDS: LEVOTHYROXINE NA 25 MCG TABLET (FP) PO SCH (07:45)
[2019-08-08] MEDS: levETIRAcetam 250 MG TABLET (FP) PO SCH ×2 (09:55→21:20)
[2019-08-08] MEDS: SERTRALINE HCL 50 MG TABLET (FP) PO SCH (09:55)
[2019-08-08] MEDS: PRENATAL VITAMINS W/ FOLIC ACID TABLET (FP) PO SCH (09:56)
[2019-08-08] MEDS: NICOTINE 21 MG/24 HOURS TOPICAL PATCH TD SCH (09:56)
[2019-08-08] MEDS: DIVALPROEX SODIUM 500 MG TABLET E.C. PO SCH ×2 (09:56→21:19)
[2019-08-08] MEDS: ATORVASTATIN CA 20 MG TABLET (FP) PO SCH (21:20)
[2019-08-08] MEDS: MELATONIN 5 MG TABLETS PO PRN (21:20)
[2019-08-08] MEDS: THIAMINE HCL 100 MG TABLET (FP) PO SCH (21:20)
[2019-08-08] MEDS: QUEtiapine FUMARATE 200 MG TABLET PO SCH (21:20)
[2019-08-09] MEDS: GABAPENTIN 300 MG CAPSULE (FP) PO SCH ×3 (06:28→21:36)
[2019-08-09] MEDS: NICOTINE POLACRILEX 4 MG GUM BUC PRN ×5 (06:29→21:37)
[2019-08-09] MEDS: LEVOTHYROXINE NA 25 MCG TABLET (FP) PO SCH (07:49)
[2019-08-09] MEDS: PRENATAL VITAMINS W/ FOLIC ACID TABLET (FP) PO SCH (09:49)
[2019-08-09] MEDS: NICOTINE 21 MG/24 HOURS TOPICAL PATCH TD SCH (09:49)
[2019-08-09] MEDS: SERTRALINE HCL 50 MG TABLET (FP) PO SCH (09:49)
[2019-08-09] MEDS: levETIRAcetam 250 MG TABLET (FP) PO SCH ×2 (09:49→21:36)
[2019-08-09] MEDS: DIVALPROEX SODIUM 500 MG TABLET E.C. PO SCH ×2 (09:49→21:36)
[2019-08-09] MEDS: ONDANSETRON *ODT* 4 MG TABLET SL PRN (17:07)
[2019-08-09] MEDS: THIAMINE HCL 100 MG TABLET (FP) PO SCH (21:36)
[2019-08-09] MEDS: QUEtiapine FUMARATE 200 MG TABLET PO SCH (21:36)
[2019-08-09] MEDS: ATORVASTATIN CA 20 MG TABLET (FP) PO SCH (21:36)
[2019-08-09] MEDS: MELATONIN 5 MG TABLETS PO PRN (21:37)
[2019-08-10] MEDS: LEVOTHYROXINE NA 25 MCG TABLET (FP) PO SCH (06:10)
[2019-08-10] MEDS: GABAPENTIN 300 MG CAPSULE (FP) PO SCH ×3 (06:10→21:27)
[2019-08-10] MEDS: NICOTINE 21 MG/24 HOURS TOPICAL PATCH TD SCH (09:59)
[2019-08-10] MEDS: levETIRAcetam 250 MG TABLET (FP) PO SCH ×2 (10:00→21:26)
[2019-08-10] MEDS: PRENATAL VITAMINS W/ FOLIC ACID TABLET (FP) PO SCH (10:00)
[2019-08-10] MEDS: DIVALPROEX SODIUM 500 MG TABLET E.C. PO SCH ×2 (10:00→21:26)
[2019-08-10] MEDS: SERTRALINE HCL 50 MG TABLET (FP) PO SCH (10:00)
[2019-08-10] MEDS: ONDANSETRON *ODT* 4 MG TABLET SL PRN (10:01)
[2019-08-10] MEDS: NICOTINE POLACRILEX 4 MG GUM BUC PRN ×2 (10:01→21:28)
[2019-08-10] MEDS: MAG HYDROX/AL HYDROX/SIMETH 30 ML UNIT-DOSE CUP PO PRN (16:58)
[2019-08-10] MEDS: QUEtiapine FUMARATE 200 MG TABLET PO SCH (21:27)
[2019-08-10] MEDS: THIAMINE HCL 100 MG TABLET (FP) PO SCH (21:27)
[2019-08-10] MEDS: MELATONIN 5 MG TABLETS PO PRN (21:27)
[2019-08-10] MEDS: ATORVASTATIN CA 20 MG TABLET (FP) PO SCH (21:27)
[2019-08-11] MEDS: GABAPENTIN 300 MG CAPSULE (FP) PO SCH ×3 (06:17→21:18)
[2019-08-11] MEDS: LEVOTHYROXINE NA 25 MCG TABLET (FP) PO SCH (06:17)
[2019-08-11] MEDS: NICOTINE POLACRILEX 4 MG GUM BUC PRN ×5 (06:18→21:19)
[2019-08-11] MEDS: PRENATAL VITAMINS W/ FOLIC ACID TABLET (FP) PO SCH (10:10)
[2019-08-11] MEDS: DIVALPROEX SODIUM 500 MG TABLET E.C. PO SCH ×2 (10:10→21:18)
[2019-08-11] MEDS: NICOTINE 21 MG/24 HOURS TOPICAL PATCH TD SCH (10:10)
[2019-08-11] MEDS: levETIRAcetam 250 MG TABLET (FP) PO SCH ×2 (10:10→21:18)
[2019-08-11] MEDS: SERTRALINE HCL 50 MG TABLET (FP) PO SCH (10:10)
[2019-08-11] MEDS: ONDANSETRON *ODT* 4 MG TABLET SL PRN (17:52)
[2019-08-11] MEDS: QUEtiapine FUMARATE 200 MG TABLET PO SCH (21:18)
[2019-08-11] MEDS: ATORVASTATIN CA 20 MG TABLET (FP) PO SCH (21:18)
[2019-08-11] MEDS: THIAMINE HCL 100 MG TABLET (FP) PO SCH (21:19)
[2019-08-11] MEDS: MELATONIN 5 MG TABLETS PO PRN (21:19)
[2019-08-12] MEDS: GABAPENTIN 300 MG CAPSULE (FP) PO SCH ×3 (06:24→21:32)
[2019-08-12] MEDS: LEVOTHYROXINE NA 25 MCG TABLET (FP) PO SCH (06:26)
[2019-08-12] MEDS: levETIRAcetam 250 MG TABLET (FP) PO SCH ×2 (10:11→21:31)
[2019-08-12] MEDS: PRENATAL VITAMINS W/ FOLIC ACID TABLET (FP) PO SCH (10:11)
[2019-08-12] MEDS: DIVALPROEX SODIUM 500 MG TABLET E.C. PO SCH ×2 (10:11→21:31)
[2019-08-12] MEDS: SERTRALINE HCL 50 MG TABLET (FP) PO SCH (10:11)
[2019-08-12] MEDS: NICOTINE 21 MG/24 HOURS TOPICAL PATCH TD SCH (10:12)
[2019-08-12] MEDS: NICOTINE POLACRILEX 4 MG GUM BUC PRN ×4 (10:14→21:30)
[2019-08-12] MEDS: ATORVASTATIN CA 20 MG TABLET (FP) PO SCH (21:31)
[2019-08-12] MEDS: QUEtiapine FUMARATE 200 MG TABLET PO SCH (21:32)
[2019-08-12] MEDS: MELATONIN 5 MG TABLETS PO PRN (21:32)
[2019-08-12] MEDS: THIAMINE HCL 100 MG TABLET (FP) PO SCH (21:32)
[2019-08-13] MEDS: GABAPENTIN 300 MG CAPSULE (FP) PO SCH ×3 (06:13→21:30)
[2019-08-13] MEDS: LEVOTHYROXINE NA 25 MCG TABLET (FP) PO SCH (06:14)
[2019-08-13] MEDS: NICOTINE POLACRILEX 4 MG GUM BUC PRN ×5 (06:15→21:29)
[2019-08-13] MEDS: levETIRAcetam 250 MG TABLET (FP) PO SCH ×2 (10:29→21:29)
[2019-08-13] MEDS: NICOTINE 21 MG/24 HOURS TOPICAL PATCH TD SCH (10:29)
[2019-08-13] MEDS: PRENATAL VITAMINS W/ FOLIC ACID TABLET (FP) PO SCH (10:29)
[2019-08-13] MEDS: SERTRALINE HCL 50 MG TABLET (FP) PO SCH (10:29)
[2019-08-13] MEDS: DIVALPROEX SODIUM 500 MG TABLET E.C. PO SCH ×2 (10:29→21:29)
[2019-08-13] MEDS: QUEtiapine FUMARATE 200 MG TABLET PO SCH (21:30)
[2019-08-13] MEDS: ATORVASTATIN CA 20 MG TABLET (FP) PO SCH (21:30)
[2019-08-13] MEDS: MELATONIN 5 MG TABLETS PO PRN (21:31)
[2019-08-13] MEDS: THIAMINE HCL 100 MG TABLET (FP) PO SCH (21:31)
[2019-08-14] MEDS: GABAPENTIN 300 MG CAPSULE (FP) PO SCH ×3 (06:13→21:32)
[2019-08-14] MEDS: LEVOTHYROXINE NA 25 MCG TABLET (FP) PO SCH (06:14)
[2019-08-14] MEDS: NICOTINE POLACRILEX 4 MG GUM BUC PRN ×4 (06:16→21:33)
[2019-08-14] MEDS: levETIRAcetam 250 MG TABLET (FP) PO SCH ×2 (10:29→21:33)
[2019-08-14] MEDS: SERTRALINE HCL 50 MG TABLET (FP) PO SCH (10:29)
[2019-08-14] MEDS: PRENATAL VITAMINS W/ FOLIC ACID TABLET (FP) PO SCH (10:29)
[2019-08-14] MEDS: NICOTINE 21 MG/24 HOURS TOPICAL PATCH TD SCH (10:29)
[2019-08-14] MEDS: DIVALPROEX SODIUM 500 MG TABLET E.C. PO SCH ×2 (10:29→21:33)
[2019-08-14] MEDS: QUEtiapine FUMARATE 200 MG TABLET PO SCH (21:32)
[2019-08-14] MEDS: THIAMINE HCL 100 MG TABLET (FP) PO SCH (21:33)
[2019-08-14] MEDS: ATORVASTATIN CA 20 MG TABLET (FP) PO SCH (21:33)
[2019-08-15] MEDS: GABAPENTIN 300 MG CAPSULE (FP) PO SCH ×3 (06:05→21:36)
[2019-08-15] MEDS: LEVOTHYROXINE NA 25 MCG TABLET (FP) PO SCH (06:05)
[2019-08-15] MEDS: NICOTINE POLACRILEX 4 MG GUM BUC PRN ×5 (06:06→21:37)
[2019-08-15] MEDS: PRENATAL VITAMINS W/ FOLIC ACID TABLET (FP) PO SCH (10:07)
[2019-08-15] MEDS: SERTRALINE HCL 50 MG TABLET (FP) PO SCH (10:08)
[2019-08-15] MEDS: levETIRAcetam 250 MG TABLET (FP) PO SCH ×2 (10:08→21:36)
[2019-08-15] MEDS: DIVALPROEX SODIUM 500 MG TABLET E.C. PO SCH ×2 (10:08→21:35)
[2019-08-15] MEDS: NICOTINE 21 MG/24 HOURS TOPICAL PATCH TD SCH (10:10)
[2019-08-15] MEDS: ONDANSETRON *ODT* 4 MG TABLET SL PRN ×2 (10:10→20:14)
[2019-08-15] MEDS: MAG HYDROX/AL HYDROX/SIMETH 30 ML UNIT-DOSE CUP PO PRN (13:28)
[2019-08-15] MEDS: ATORVASTATIN CA 20 MG TABLET (FP) PO SCH (21:36)
[2019-08-15] MEDS: THIAMINE HCL 100 MG TABLET (FP) PO SCH (21:37)
[2019-08-15] MEDS: MELATONIN 5 MG TABLETS PO PRN (21:37)
[2019-08-15] MEDS: QUEtiapine FUMARATE 200 MG TABLET PO SCH (21:37)
[2019-08-15] MEDS: BISMUTH SUBSALICYLATE 524 MG/30 ML UD PO PRN (21:39)
[2019-08-16] MEDS: GABAPENTIN 300 MG CAPSULE (FP) PO SCH ×3 (06:14→21:18)
[2019-08-16] MEDS: LEVOTHYROXINE NA 25 MCG TABLET (FP) PO SCH (06:15)
[2019-08-16] MEDS: NICOTINE POLACRILEX 4 MG GUM BUC PRN ×5 (06:16→21:19)
[2019-08-16] MEDS: DIVALPROEX SODIUM 500 MG TABLET E.C. PO SCH ×2 (09:37→21:18)
[2019-08-16] MEDS: levETIRAcetam 250 MG TABLET (FP) PO SCH ×2 (09:37→21:18)
[2019-08-16] MEDS: SERTRALINE HCL 50 MG TABLET (FP) PO SCH (09:37)
[2019-08-16] MEDS: ONDANSETRON *ODT* 4 MG TABLET SL PRN ×2 (09:37→21:21)
[2019-08-16] MEDS: PRENATAL VITAMINS W/ FOLIC ACID TABLET (FP) PO SCH (09:38)
[2019-08-16] MEDS: NICOTINE 21 MG/24 HOURS TOPICAL PATCH TD SCH (09:38)
[2019-08-16] MEDS: ATORVASTATIN CA 20 MG TABLET (FP) PO SCH (21:18)
[2019-08-16] MEDS: THIAMINE HCL 100 MG TABLET (FP) PO SCH (21:18)
[2019-08-16] MEDS: QUEtiapine FUMARATE 200 MG TABLET PO SCH (21:18)
[2019-08-16] MEDS: MELATONIN 5 MG TABLETS PO PRN (21:19)
[2019-08-17] MEDS: GABAPENTIN 300 MG CAPSULE (FP) PO SCH ×3 (06:15→21:20)
[2019-08-17] MEDS: LEVOTHYROXINE NA 25 MCG TABLET (FP) PO SCH (06:15)
[2019-08-17] MEDS: NICOTINE POLACRILEX 4 MG GUM BUC PRN ×5 (06:17→21:20)
[2019-08-17] MEDS: NICOTINE 21 MG/24 HOURS TOPICAL PATCH TD SCH (10:00)
[2019-08-17] MEDS: PRENATAL VITAMINS W/ FOLIC ACID TABLET (FP) PO SCH (10:00)
[2019-08-17] MEDS: SERTRALINE HCL 50 MG TABLET (FP) PO SCH (10:00)
[2019-08-17] MEDS: DIVALPROEX SODIUM 500 MG TABLET E.C. PO SCH ×2 (10:00→21:20)
[2019-08-17] MEDS: levETIRAcetam 250 MG TABLET (FP) PO SCH ×2 (10:00→21:20)
[2019-08-17] MEDS: ONDANSETRON *ODT* 4 MG TABLET SL PRN (10:01)
[2019-08-17] MEDS: MAG HYDROX/AL HYDROX/SIMETH 30 ML UNIT-DOSE CUP PO PRN (13:38)
[2019-08-17] MEDS: BISMUTH SUBSALICYLATE 524 MG/30 ML UD PO PRN (16:54)
[2019-08-17] MEDS: THIAMINE HCL 100 MG TABLET (FP) PO SCH (21:20)
[2019-08-17] MEDS: ATORVASTATIN CA 20 MG TABLET (FP) PO SCH (21:20)
[2019-08-17] MEDS: QUEtiapine FUMARATE 200 MG TABLET PO SCH (21:20)
[2019-08-17] MEDS: MELATONIN 5 MG TABLETS PO PRN (21:20)
[2019-08-18] MEDS: LEVOTHYROXINE NA 25 MCG TABLET (FP) PO SCH (06:08)
[2019-08-18] MEDS: GABAPENTIN 300 MG CAPSULE (FP) PO SCH ×3 (06:08→21:21)
[2019-08-18] MEDS: ONDANSETRON *ODT* 4 MG TABLET SL PRN (11:31)
[2019-08-18] MEDS: levETIRAcetam 250 MG TABLET (FP) PO SCH ×2 (11:31→21:21)
[2019-08-18] MEDS: DIVALPROEX SODIUM 500 MG TABLET E.C. PO SCH ×2 (11:31→21:21)
[2019-08-18] MEDS: SERTRALINE HCL 50 MG TABLET (FP) PO SCH (11:33)
[2019-08-18] MEDS: NICOTINE 21 MG/24 HOURS TOPICAL PATCH TD SCH (11:33)
[2019-08-18] MEDS: PRENATAL VITAMINS W/ FOLIC ACID TABLET (FP) PO SCH (11:34)
[2019-08-18] MEDS: BISMUTH SUBSALICYLATE 524 MG/30 ML UD PO PRN (14:22)
[2019-08-18] MEDS: NICOTINE POLACRILEX 4 MG GUM BUC PRN ×2 (14:23→21:23)
[2019-08-18] MEDS: ATORVASTATIN CA 20 MG TABLET (FP) PO SCH (21:21)
[2019-08-18] MEDS: THIAMINE HCL 100 MG TABLET (FP) PO SCH (21:22)
[2019-08-18] MEDS: MELATONIN 5 MG TABLETS PO PRN (21:22)
[2019-08-18] MEDS: QUEtiapine FUMARATE 200 MG TABLET PO SCH (21:22)
[2019-08-19] MEDS: GABAPENTIN 300 MG CAPSULE (FP) PO SCH ×3 (06:32→21:20)
[2019-08-19] MEDS: LEVOTHYROXINE NA 25 MCG TABLET (FP) PO SCH (06:32)
[2019-08-19] MEDS: PRENATAL VITAMINS W/ FOLIC ACID TABLET (FP) PO SCH (10:11)
[2019-08-19] MEDS: levETIRAcetam 250 MG TABLET (FP) PO SCH ×2 (10:11→21:19)
[2019-08-19] MEDS: SERTRALINE HCL 50 MG TABLET (FP) PO SCH (10:11)
[2019-08-19] MEDS: DIVALPROEX SODIUM 500 MG TABLET E.C. PO SCH ×2 (10:11→21:19)
[2019-08-19] MEDS: NICOTINE 21 MG/24 HOURS TOPICAL PATCH TD SCH (10:12)
[2019-08-19] MEDS: NICOTINE POLACRILEX 4 MG GUM BUC PRN ×3 (10:14→21:21)
[2019-08-19] MEDS: ONDANSETRON *ODT* 4 MG TABLET SL PRN (10:14)
[2019-08-19] MEDS: MAG HYDROX/AL HYDROX/SIMETH 30 ML UNIT-DOSE CUP PO PRN (13:51)
[2019-08-19] MEDS: BISMUTH SUBSALICYLATE 524 MG/30 ML UD PO PRN (17:06)
[2019-08-19] MEDS: ATORVASTATIN CA 20 MG TABLET (FP) PO SCH (21:20)
[2019-08-19] MEDS: hydrOXYzine PAMOATE 50 MG CAPSULE (FP) PO PRN (21:20)
[2019-08-19] MEDS: QUEtiapine FUMARATE 200 MG TABLET PO SCH (21:20)
[2019-08-19] MEDS: MELATONIN 5 MG TABLETS PO PRN (21:21)
[2019-08-19] MEDS: THIAMINE HCL 100 MG TABLET (FP) PO SCH (21:22)
[2019-08-20] MEDS: LEVOTHYROXINE NA 25 MCG TABLET (FP) PO SCH (06:08)
[2019-08-20] MEDS: NICOTINE POLACRILEX 4 MG GUM BUC PRN ×5 (06:08→21:16)
[2019-08-20] MEDS: GABAPENTIN 300 MG CAPSULE (FP) PO SCH ×3 (06:08→21:14)
[2019-08-20] MEDS: levETIRAcetam 250 MG TABLET (FP) PO SCH ×2 (10:07→21:14)
[2019-08-20] MEDS: SERTRALINE HCL 50 MG TABLET (FP) PO SCH (10:07)
[2019-08-20] MEDS: DIVALPROEX SODIUM 500 MG TABLET E.C. PO SCH ×2 (10:07→21:14)
[2019-08-20] MEDS: PRENATAL VITAMINS W/ FOLIC ACID TABLET (FP) PO SCH (10:07)
[2019-08-20] MEDS: NICOTINE 21 MG/24 HOURS TOPICAL PATCH TD SCH (10:07)
--- NOTE | 2019-08-20 13:45 | PN ---
[facility] Progress Note Note: Patient is scheduled for discharge tomorrow. Scripts for 30 days supply of medications(Depakote 500 mg/bid, Gabapentin 600 mg/tid, Seroquel 200 mg/hs, Zoloft 100 mg/day) will be electronically transmitted to [facility] at @ [address], [place] [address]
[2019-08-20] MEDS: BISMUTH SUBSALICYLATE 524 MG/30 ML UD PO PRN (14:14)
[2019-08-20] MEDS: ATORVASTATIN CA 20 MG TABLET (FP) PO SCH (21:14)
[2019-08-20] MEDS: QUEtiapine FUMARATE 200 MG TABLET PO SCH (21:15)
[2019-08-20] MEDS: hydrOXYzine PAMOATE 50 MG CAPSULE (FP) PO PRN (21:15)
[2019-08-20] MEDS: THIAMINE HCL 100 MG TABLET (FP) PO SCH (21:15)
[2019-08-20] MEDS: MELATONIN 5 MG TABLETS PO PRN (21:16)
[2019-08-21] MEDS: GABAPENTIN 300 MG CAPSULE (FP) PO SCH (06:17)
[2019-08-21] MEDS: LEVOTHYROXINE NA 25 MCG TABLET (FP) PO SCH (06:18)
[2019-08-21] MEDS: NICOTINE POLACRILEX 4 MG GUM BUC PRN ×2 (06:19→09:22)
[2019-08-21 06:59] VITALS: BP 105/87; PULSE 73; TEMP 97.5
[2019-08-21] MEDS: NICOTINE 21 MG/24 HOURS TOPICAL PATCH TD SCH (09:20)
[2019-08-21] MEDS: DIVALPROEX SODIUM 500 MG TABLET E.C. PO SCH (09:20)
[2019-08-21] MEDS: levETIRAcetam 250 MG TABLET (FP) PO SCH (09:20)
[2019-08-21] MEDS: PRENATAL VITAMINS W/ FOLIC ACID TABLET (FP) PO SCH (09:21)
[2019-08-21] MEDS: SERTRALINE HCL 50 MG TABLET (FP) PO SCH (09:21)
--- NOTE | 2019-08-21 22:06 | DS ---
[facility] Rehab Discharge Summary - [facility] Rehab Discharge Summary Admission Date: 07/24/19 Discharge Date: 08/21/19 - History Present History: Alcohol dependence, Cannabis dependence Additional Comments: Pt is a 39 y/o male with a hx of MARILOU admitted to rehab and discharged today after completing treatment. Pertinent Past History: Asthma COPD Seizure disorder Hypothyroidism Hypercholesterolemia Mood disorder Poor Sleep hygiene - Discharge Physical Exam Vital Signs: Vital Signs Temperature 97.5 F L 08/21/19 06:58 Pulse Rate 73 08/21/19 06:58 Respiratory Rate 18 08/21/19 06:58 Blood Pressure 105/87 08/21/19 06:58 O2 Sat by Pulse Oximetry (%) General:Alert o x 3,nad,oob ambulating with steady gait. Heent:Normocephalic,eomi,laura,hearing normal Cardiac:s1 s2,rrr Lungs:cta,glenis. Abdomen:soft,+bs,nt,Flat Extremities/Skin:No edema,no cyanosis,Full ROM; skin intact. Pertinent Admission Physical Exam Findings: Laboratory Tests 07/25/19 07/25/19 07:30 10:00 HIV 1&2 Ag/Ab, 4th Gen Non reactive HIV 1&2 Antibody Screen Cancelled HIV P24 Antigen Cancelled - Treatment Discharge Condition: Discharge condition good Hospital Course: General:Alert o x 3,nad,oob ambulating with steady gait. Heent:Normocephalic,eomi,laura,hearing normal Cardiac:s1 s2,rrr Lungs:cta,glenis. Abdomen:soft,+bs,nt,Flat Extremities/Skin:No edema,no cyanosis,Full ROM; skin intact. - Medication Discharge Medications: Ambulatory Orders Divalproex [Depakote -] 750 mg PO TID 01/18/19 Gabapentin 300 mg PO TID #45 capsule 01/21/19 levETIRAcetam [Keppra -] 250 mg PO BID 30 Days #60 tablet 01/21/19 Levothyroxine Sodium [Synthroid] 50 mcg PO DAILY 07/24/19 Quetiapine Fumarate [Seroquel] 25 mg PO DAILY 07/24/19 Simvastatin 20 mg PO HS 07/24/19 Divalproex [Depakote -] 500 mg PO BID #60 tablet.ec 08/20/19 Gabapentin [Gralise] 600 mg PO TID #90 tab.er.24h 08/20/19 Quetiapine Fumarate [Seroquel -] 200 mg PO HS #30 tab 08/20/19 Sertraline HCl [Zoloft] 100 mg PO DAILY #30 tablet 08/20/19 - Medication-Assisted Treatment (MAT) Medication-Assisted Treatment (MAT): No - Discharge Instructions Diet, activity, other medical instructions: Diet:Low cholesterol diet Activity: oob, ad gracie Other medical instructions:Follow up with CD aftercare with [facility] [address] [place] Follow up with primary care management at [place], [place] for medical/ psych care. - Diagnosis (1) Alcohol dependence Status: Chronic Qualifiers: Substance use status: uncomplicated Qualified Code(s): F10.20 - Alcohol dependence, uncomplicated (2) Asthma Status: Chronic Qualifiers: Asthma severity: unspecified severity Asthma persistence: unspecified Asthma complication type: uncomplicated Qualified Code(s): J45.909 - Unspecified asthma, uncomplicated (3) COPD (chronic obstructive pulmonary disease) Status: Chronic Qualifiers: COPD type: unspecified COPD Qualified Code(s): J44.9 - Chronic obstructive pulmonary disease, unspecified (4) Hypercholesterolemia Status: Chronic (5) Hypothyroidism Status: Chronic Qualifiers: Hypothyroidism type: unspecified Qualified Code(s): E03.9 - Hypothyroidism , unspecified (6) Nicotine dependence Status: Chronic Qualifiers: Nicotine product type: cigarettes Substance use status: uncomplicated Qualified Code(s): F17.210 - Nicotine dependence, cigarettes, uncomplicated (7) Seizure disorder Status: Chronic (8) Gastroenteritis Status: Acute (9) Bipolar disorder Status: Chronic (10) Cannabis abuse Status: Chronic - Follow-up Referral Minutes to complete discharge: 25 - AMA Did Patient Leave Against Medical Advice: No Additional Comments: Pt is homeless and is connected to [facility]. Pt has own meds.
== END 2019-08-21 11:15 | disposition home or self-care (01) | DRG 772 ==
LOC: YASAS 13:15 → Y5N 13:18
PROVIDERS: ADMIT Neuromusculoskeletal Medicine & OMM; ATTEND Neuromusculoskeletal Medicine & OMM
PROC: HZ42ZZZ Group Counseling for Substance Abuse Treatment, Cognitive-Behavioral (ICD-10-PCS; principal; 2019-07-24)
DX: F10.20 Alcohol dependence, uncomplicated (principal); F12.10 Cannabis abuse, uncomplicated; F17.210 Nicotine dependence, cigarettes, uncomplicated; F31.9 Bipolar disorder, unspecified; F19.24 Other psychoactive substance dependence with psychoactive substance-induced mood disorder; F19.282 Other psychoactive substance dependence with psychoactive substance-induced sleep disorder; A08.4 Viral intestinal infection, unspecified; J44.9 Chronic obstructive pulmonary disease, unspecified; E78.00 Pure hypercholesterolemia, unspecified; E03.9 Hypothyroidism, unspecified; G40.909 Epilepsy, unspecified, not intractable, without status epilepticus
CPT/HCPCS: 36415; 87389; Q0162

== ENCOUNTER 2019-07-29 16:04 | Emergency (ER) | payer OTHER ==
[2019-07-29 16:27] VITALS: BMI 24.3
--- NOTE | 2019-07-29 16:30 | PDOC ---
History of Present Illness - History of Present Illness Initial Comments: 07/29/19 16:54 39 y/o/m sent here from [facility] for abd pain, diarrhea, and vomiting. He states that he has had vomiting and diarrhea for 3 days and worsening abd pain that started last night. He has had multiple episodes of vomiting and diarrhea. He has not seen any blood in his vomitus or diarrhea. He states the abd pain is constant, 7/10, and diffuse. He complains of feeling dizzy and tingling in his hands and legs that started today. He was admitted at [facility] for alcohol detox and was on a Librium regimen until 07/24 when he was admitted for rehab. He admits to drinking alcohol prior to admission at [facility] but denies any other illicit substance use. He smokes 2 packs of cigarettes daily. PMHx: chronic bronchitis, hypothyroidism SHx: denies <Hillary Childress - Last Filed: 07/29/19 23:23> <Rosalba Gardner - Last Filed: 07/30/19 02:38> - General Chief Complaint: Vomiting/Diarrhea Stated Complaint: ABD PAIN, DIARRHEA Past History - Past Medical History Anemia: No Asthma: Yes Cancer: No Cardiac Disorders: No CVA: No COPD: Yes CHF: No Dementia: No Diabetes: No GI Disorders: Yes (GERD) Disorders: No HTN: No Hypercholesterolemia: Yes Kidney Stones: No Liver Disease: No Seizures: Yes (last seizure 2016) Thyroid Disease: Yes (hyperthyroidism) - Surgical History Abdominal Surgery: No Appendectomy: No Cardiac Surgery: No Cholecystectomy: No Lung Surgery: No Neurologic Surgery: No Orthopedic Surgery: No - Reproductive History Testicular Surgery: No - Suicide/Smoking/Psychosocial Hx Smoking History: Current every day smoker Have you smoked in the past 12 months: Yes Number of Cigarettes Smoked Daily: 20 Information on smoking cessation initiated: No 'Breaking Loose' booklet given: 07/19/19 Hx Alcohol Use: Yes Drug/Substance Use Hx: No Substance Use Type: Alcohol, Marijuana Hx Substance Use Treatment: Yes <Hillary Childress - Last Filed: 07/29/19 23:23> <Rosalba Gardner - Last Filed: 07/30/19 02:38> - Past Medical History Allergies/Adverse Reactions: Allergies Allergy/AdvReac Type Severity Reaction Status Date / Time No Known Allergies Allergy Verified 07/29/19 16:25 Home Medications: Ambulatory Orders Divalproex [Depakote -] 750 mg PO TID 01/18/19 Gabapentin 300 mg PO TID #45 capsule 01/21/19 Sertraline HCl [Zoloft] 100 mg PO DAILY #15 tablet 01/21/19 levETIRAcetam [Keppra -] 250 mg PO BID 30 Days #60 tablet 01/21/19 Levothyroxine Sodium [Synthroid] 50 mcg PO DAILY 07/24/19 Quetiapine Fumarate [Seroquel -] 200 mg PO HS 07/24/19 Quetiapine Fumarate [Seroquel] 25 mg PO DAILY 07/24/19 Simvastatin 20 mg PO HS 07/24/19 Review of Systems - Review of Systems Constitutional: Yes: Chills. No: Fever, Weakness HEENTM: No: Nose Congestion Respiratory: No: Cough, Shortness of Breath Cardiac (ROS): Yes: Lightheadedness. No: Chest Pain ABD/GI: Yes: Diarrhea, Nausea, Vomiting, Abdominal cramping : No: Dysuria Musculoskeletal: No: Back Pain Neurological: No: Headache, Numbness Psychiatric: Yes: Anxiety <Hillary Childress S - Last Filed: 07/29/19 23:23> *Physical Exam - Vital Signs Last Vital Signs Temp Pulse Resp BP Pulse Ox 96.6 F L 89 20 122/90 98 07/29/19 16:25 07/29/19 16:25 07/29/19 16:25 07/29/19 16:25 07/29/19 16:25 - Physical Exam General Appearance: Yes: Moderate Distress HEENT: positive: EOMI, Pale Conjunctivae Neck: positive: Supple Respiratory/Chest: positive: Lungs Clear. negative: Respiratory Distress, Accessory Muscle Use, Crackles, Rales, Rhonchi, Wheezing Cardiovascular: positive: Regular Rhythm, Regular Rate, S1, S2 Gastrointestinal/Abdominal: positive: Increased Bowel Sounds. negative: Tender , Guarding, Rebound Extremity: positive: Normal Capillary Refill. negative: Swelling Integumentary: positive: Dry. negative: Swelling Neurologic: positive: Fully Oriented, Alert, Motor Strength 5/5 <Hillary Childress S - Last Filed: 07/29/19 23:23> - Vital Signs Last Vital Signs Temp Pulse Resp BP Pulse Ox 97.5 F L 77 18 97/69 98 07/29/19 19:25 07/29/19 19:25 07/29/19 19:25 07/29/19 19:25 07/29/19 19:25 <Rosalba Gardner - Last Filed: 07/30/19 02:38> ED Treatment Course - LABORATORY CBC & Chemistry Diagram: 07/29/19 18:57 07/29/19 18:57 <Hillary Childress - Last Filed: 07/29/19 23:23> - LABORATORY CBC & Chemistry Diagram: 07/29/19 18:57 07/29/19 18:57 - ADDITIONAL ORDERS Additional order review: Laboratory Results 07/29/19 07/29/19 07/29/19 18:57 18:57 18:57 Sodium 138 Potassium 3.8 Chloride 103 Carbon Dioxide 28 Anion Gap 8 BUN 18.5 H Creatinine 1.2 Est GFR (CKD-EPI)AfAm 87.14 Est GFR (CKD-EPI)NonAf 75.19 Random Glucose 111 H Calcium 9.5 Total Bilirubin 0.4 AST 20 ALT 35 Alkaline Phosphatase 87 Total Protein 7.9 Albumin 4.4 Lipase 150 Alcohol, Quantitative < 3.0 Cancelled 07/29/19 18:57 RBC 5.51 MCV 93.5 MCHC 34.0 RDW 14.5 MPV 8.2 Neutrophils % 78.1 Lymphocytes % 14.6 Monocytes % 6.0 Eosinophils % 1.0 Basophils % 0.3 - RADIOLOGY Radiology Studies Ordered: Category Date Time Status ABDOMEN & PELVIS CT WITH CONTR [CT] Stat CT Scan 07/29/19 21:25 Completed - Medications Given in the ED: ED Medications Discontinued Medications Generic Name Dose Route Start Last Admin Trade Name Freq PRN Reason Stop Dose Admin Acetaminophen 1,000 mg 07/29/19 16:44 07/29/19 19:05 Ofirmev Injection - IVPB 07/29/19 16:45 1,000 mg ONCE ONE Administration Sodium Chloride 1,000 mls @ 1,000 mls/hr 07/29/19 16:44 07/29/19 19:05 Normal Saline - IV 07/29/19 17:43 1,000 mls/hr ASDIR STA Administration Ondansetron HCl 4 mg 07/29/19 16:46 07/29/19 19:06 Zofran Injection IVPB 07/29/19 16:47 4 mg ONCE ONE Administration <Rosalba Gardner - Last Filed: 07/30/19 02:38> Medical Decision Making - Medical Decision Making 07/29/19 17:08 39 y/o/m sent here from [facility] for abd pain, diarrhea, and vomiting. He states that he has had vomiting and diarrhea for 3 days and worsening abd pain that started last night. He has had multiple episodes of vomiting and diarrhea. CBC, CMP, UA, alcohol level, EKG ordered. Zofran and Tylenol ordered nausea and pain relief. Normal saline bolus for rehydration. 07/29/19 19:22 Difficulty obtaining IV access for labs and medications. Multiple attempts by nurses and resident. IV access finally obtained with U/S. Patient receiving fluids and medication. No episodes of emesis or diarrhea while in ED. 07/29/19 20:22 Patient states he is still uncomfortable after fluids and pain medication. Will obtain CT with contrast to r/o lesions. 07/29/19 22:09 Patient still complaining of some abd pain but much better than initial presentation. Wating on CT read results. Patient signed out to Dr. Gardner to follow up CT results. <Hillary Childress S - Last Filed: 07/29/19 23:23> - Medical Decision Making 07/30/19 01:14 ct scan negative for appendicitis,colitis,diverticulitis no further nausea or vomiting <Rosalba Gardner - Last Filed: 07/30/19 02:38> *DC/Admit/Observation/Transfer <Hillary Childress S - Last Filed: 07/29/19 23:23> <Rosalba Gardner - Last Filed: 07/30/19 02:38> Diagnosis at time of Disposition: Gastroenteritis - Discharge Dispostion Condition at time of disposition: Good - Patient Instructions Printed Discharge Instructions: DI for Viral Gastroenteritis -- Adult Additional Instructions: please advance your diet as tolerated starting with fluids and BRAT diet-bananas ,applesauce toast,rice ,etc return for any worsening symptoms
[2019-07-29] MEDS ORDERED: ACETAMINOPHEN 1000 MG/100 ML VIAL (NON FORMULARY) IVPB ONE (16:44)
[2019-07-29] MEDS ORDERED: SODIUM CHLORIDE 1,000 ML IV STA (16:44)
[2019-07-29] MEDS ORDERED: ONDANSETRON 4 MG/2 ML VIAL IVPB ONE (16:46)
--- NOTE | 2019-07-29 17:40 | PDOC ---
Attending Attestation - Resident Resident Name: RjpankajSheyjames Terese - ED Attending Attestation I have performed the following: I have examined & evaluated the patient, The case was reviewed & discussed with the resident, I agree w/resident's findings & plan, Exceptions are as noted - HPI HPI: 07/29/19 17:39 this 39 yo male sent from [facility] rehab for nausea,vomiting and watery diarrhea 07/29/19 17:39 - Physicial Exam PE: 07/29/19 17:40 wnwd 39 yo male in no acute dstress head ncat neck supple lungs cta b/l cvs [id number] abd no rebound,no guarding skin warm and dry extremities no edema no flank tenderness neuro axox3,ambulatory psych appropriate - Medical Decision Making 07/29/19 17:41 39 yo male in rehab facility p/w N,V,D 07/30/19 00:46 ct scan of abd/pelvis with contrast: no colitis,no appendicits,no diverticulitis recieved IVF, anti emetics 07/30/19 00:47 I spoke with nurse Bull on [facility] and pt accepted to be sent back
[2019-07-29] MEDS ORDERED: ACETAMINOPHEN INJECTION 100 ML IVPB ONE (19:00)
[2019-07-29] MEDS ORDERED: ONDANSETRON 4 MG/2 ML VIAL ONE (19:01)
[2019-07-29 19:09] LABS: BASO % 0.3 % (0-2.0); HEMATOCRIT 51.6 % (35.4-49); HEMOGLOBIN 17.6 GM/dL (11.7-16.9); LYMPH % 14.6 % (8-40); MCH 31.8 pg (25.7-33.7); MEAN CELL VOLUME 93.5 fl (80-96); MEAN PLT VOLUME 8.2 fl (7.5-11.1); NEUT % 78.1 % (42.8-82.8); PLATELET COUNT 375 K/MM3 (134-434); RBC 5.51 M/mm3 (4.00-5.60); RDW 14.5 % (11.9-15.9); WHITE BLOOD COUNT 12.2 K/mm3 (4.0-10.0)
[2019-07-29 19:21] LABS: LIPASE 150 U/L (73-393)
[2019-07-29 19:24] LABS: ALBUMIN 4.4 g/dl (3.4-5.0); BILIRUBIN,TOTAL 0.4 mg/dL (0.2-1); BLOOD UREA NITROGEN 18.5 mg/dL (7-18); CALCIUM 9.5 mg/dL (8.5-10.1); CREATININE 1.2 mg/dL (0.55-1.3); POTASSIUM 3.8 mmol/L (3.5-5.1); TOT PROT 7.9 g/dl (6.4-8.2)
[2019-07-29 22:49] VITALS: BP 97/69; PULSE 77; TEMP 97.5
[2019-07-30] MEDS ORDERED: LOPERAMIDE HCL 2 MG CAPSULE ONE (01:10)
[2019-07-30] MEDS ORDERED: LOPERAMIDE HCL 2 MG CAPSULE PO ONE (01:14)
--- NOTE | 2019-07-30 01:22 | PDOC ---
*Physical Exam - Vital Signs Last Vital Signs Temp Pulse Resp BP Pulse Ox 97.5 F L 77 18 97/69 98 07/29/19 19:25 07/29/19 19:25 07/29/19 19:25 07/29/19 19:25 07/29/19 19:25 ED Treatment Course - LABORATORY CBC & Chemistry Diagram: 07/29/19 18:57 07/29/19 18:57 - ADDITIONAL ORDERS Additional order review: Laboratory Results 07/29/19 07/29/19 07/29/19 18:57 18:57 18:57 Sodium 138 Potassium 3.8 Chloride 103 Carbon Dioxide 28 Anion Gap 8 BUN 18.5 H Creatinine 1.2 Est GFR (CKD-EPI)AfAm 87.14 Est GFR (CKD-EPI)NonAf 75.19 Random Glucose 111 H Calcium 9.5 Total Bilirubin 0.4 AST 20 ALT 35 Alkaline Phosphatase 87 Total Protein 7.9 Albumin 4.4 Lipase 150 Alcohol, Quantitative < 3.0 Cancelled 07/29/19 18:57 RBC 5.51 MCV 93.5 MCHC 34.0 RDW 14.5 MPV 8.2 Neutrophils % 78.1 Lymphocytes % 14.6 Monocytes % 6.0 Eosinophils % 1.0 Basophils % 0.3 - RADIOLOGY Radiology Studies Ordered: Category Date Time Status ABDOMEN & PELVIS CT WITH CONTR [CT] Stat CT Scan 07/29/19 21:25 Completed - Medications Given in the ED: ED Medications Discontinued Medications Generic Name Dose Route Start Last Admin Trade Name Freq PRN Reason Stop Dose Admin Acetaminophen 1,000 mg 07/29/19 16:44 07/29/19 19:05 Ofirmev Injection - IVPB 07/29/19 16:45 1,000 mg ONCE ONE Administration Sodium Chloride 1,000 mls @ 1,000 mls/hr 07/29/19 16:44 07/29/19 19:05 Normal Saline - IV 07/29/19 17:43 1,000 mls/hr ASDIR STA Administration Ondansetron HCl 4 mg 07/29/19 16:46 07/29/19 19:06 Zofran Injection IVPB 07/29/19 16:47 4 mg ONCE ONE Administration *DC/Admit/Observation/Transfer Diagnosis at time of Disposition: Gastroenteritis - Discharge Dispostion Condition at time of disposition: Good - Referrals - Patient Instructions Printed Discharge Instructions: DI for Viral Gastroenteritis -- Adult Additional Instructions: please advance your diet as tolerated starting with fluids and BRAT diet-bananas ,applesauce toast,rice ,etc return for any worsening symptoms - Post Discharge Activity
--- NOTE | 2019-07-30 09:04 | EKG ---
Test Reason : Blood Pressure : / mmHG Vent. Rate : 088 BPM Atrial Rate : 088 BPM P-R Int : 136 ms QRS Dur : 098 ms QT Int : 372 ms P-R-T Axes : 052 075 042 degrees QTc Int : 450 ms NORMAL SINUS RHYTHM NONSPECIFIC T WAVE ABNORMALITY ABNORMAL ECG WHEN COMPARED WITH ECG OF 18-JAN-2019 10:11, NO SIGNIFICANT CHANGE WAS FOUND Confirmed by LIVIA MONROE MD ([id number]) on 07/30/2019 9:03:53 AM Referred By: Confirmed By:LIVIA MONROE MD
== END 2019-07-30 02:21 | disposition home or self-care (01) ==
LOC: JER 16:04
PROC: 3E033NZ Introduction of Analgesics, Hypnotics, Sedatives into Peripheral Vein, Percutaneous Approach (ICD-10-PCS; principal; 2019-07-29)
PROC: 3E0337Z Introduction of Electrolytic and Water Balance Substance into Peripheral Vein, Percutaneous Approach (ICD-10-PCS; 2019-07-29)
PROC: 3E033GC Introduction of Other Therapeutic Substance into Peripheral Vein, Percutaneous Approach (ICD-10-PCS; 2019-07-29)
DX: K52.9 Noninfective gastroenteritis and colitis, unspecified (principal); K21.9 Gastro-esophageal reflux disease without esophagitis; J44.9 Chronic obstructive pulmonary disease, unspecified; E78.00 Pure hypercholesterolemia, unspecified
CPT/HCPCS: 36415; 74177-TC; 80053; 80307; 83690; 85025; 93005; 93010; 96361; 96374; 96375; 99283-25; J0131; J7030

== ENCOUNTER 2019-09-14 08:29 | Inpatient (IN) | payer OTHER ==
[2019-09-14 08:47] VITALS: BMI 25.0
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
[2019-09-14] MEDS ORDERED: MELATONIN 5 MG TABLETS PO PRN (09:50)
[2019-09-14] MEDS ORDERED: ONDANSETRON *ODT* 4 MG TABLET SL PRN (09:50)
[2019-09-14] MEDS ORDERED: MAGNESIUM HYDROX 2400MG/30ML ORAL SUSPENSION 30 ML CUP PO PRN (09:50)
[2019-09-14] MEDS ORDERED: hydrOXYzine PAMOATE 25 MG CAPSULE (FP) PO PRN (09:50)
[2019-09-14] MEDS ORDERED: METHOCARBAMOL 500 MG TABLET PO PRN (09:50)
[2019-09-14] MEDS ORDERED: MAG HYDROX/AL HYDROX/SIMETH 30 ML UNIT-DOSE CUP PO PRN (09:50)
[2019-09-14] MEDS ORDERED: MAGNESIUM CITRATE 300 ML BOTTLE PO PRN (09:50)
[2019-09-14] MEDS ORDERED: ACETAMINOPHEN 325 MG TABLET (FP) PO PRN ×2 (09:50)
[2019-09-14] MEDS ORDERED: MENTHOL/PHENOL 1 EACH UD MM PRN (09:50)
[2019-09-14] MEDS ORDERED: NICOTINE POLACRILEX 2 MG GUM BUC PRN (09:50)
[2019-09-14] MEDS ORDERED: BISMUTH SUBSALICYLATE 524 MG/30 ML UD PO PRN (09:50)
[2019-09-14] MEDS ORDERED: chlordiazePOXIDE HCL 25 MG CAPSULE PO ONE (09:50)
[2019-09-14] MEDS: PATIENT'S OWN MEDICATION (NON-FORMULARY) (Gabapentin [Gralise] 600 MG) PO SCH (10:00)
[2019-09-14] MEDS: PRENATAL VITAMINS W/ FOLIC ACID TABLET (FP) PO SCH (12:10)
[2019-09-14] MEDS: FOLIC ACID 1 MG TABLET (FP) PO SCH (12:11)
[2019-09-14] MEDS: chlordiazePOXIDE HCL 25 MG CAPSULE PO SCH ×3 (12:11→22:19)
[2019-09-14] MEDS: levETIRAcetam 500 MG TABLET (FP) PO SCH ×2 (12:11→22:19)
[2019-09-14] MEDS: NICOTINE 21 MG/24 HOURS TOPICAL PATCH TD SCH (12:17)
[2019-09-14] MEDS ORDERED: PNEUMOCOCCAL 23 VACCINE 0.5 ML VIAL IM ONE (12:45)
[2019-09-14] MEDS: DIVALPROEX SODIUM 500 MG TABLET E.C. PO SCH ×2 (14:49→22:19)
[2019-09-14] MEDS: LEVOTHYROXINE NA 50 MCG TABLET (FP) PO SCH (16:06)
[2019-09-14] MEDS: CLOTRIMAZOLE/BETAMET DIPROP 15 GM TUBE TP SCH ×2 (16:06→22:24)
[2019-09-14] MEDS: QUEtiapine FUMARATE 100 MG TABLET (FP) PO SCH (22:19)
[2019-09-14] MEDS: THIAMINE HCL 100 MG TABLET (FP) PO SCH (22:19)
[2019-09-15] MEDS: chlordiazePOXIDE HCL 25 MG CAPSULE PO SCH ×4 (05:37→22:06)
[2019-09-15] MEDS: DIVALPROEX SODIUM 500 MG TABLET E.C. PO SCH ×3 (05:37→22:05)
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
[2019-09-15] MEDS: NICOTINE 21 MG/24 HOURS TOPICAL PATCH TD SCH (10:08)
[2019-09-15] MEDS: levETIRAcetam 500 MG TABLET (FP) PO SCH ×2 (10:09→22:05)
[2019-09-15] MEDS: PATIENT'S OWN MEDICATION (NON-FORMULARY) (Gabapentin [Gralise] 600 MG) PO SCH (10:09)
[2019-09-15] MEDS: PRENATAL VITAMINS W/ FOLIC ACID TABLET (FP) PO SCH (10:09)
--- NOTE | 2019-09-15 11:29 | PN ---
S CIWA - CIWA Score Nausea/Vomitin-No Nausea/No Vomiting Muscle Tremors: 3 Anxiety: 3 Agitation: 4-Moderately Restless Paroxysmal Sweats: 3 Orientation: 0-Oriented Tacttile Disturbances: 0-None Auditory Disturbances: 0-None Visual Disturbances: 0-None Headache: 0-None Present CIWA-Ar Total Score: 13 BHS Progress Note (SOAP) Subjective: body aches shoulder ache sweats chills shakes interrupted sleep Objective: 09/15/19 11:25 Vital Signs Temperature 97.7 F 09/15/19 09:39 Pulse Rate 81 09/15/19 09:39 Respiratory Rate 18 09/15/19 09:39 Blood Pressure 105/67 09/15/19 09:39 O2 Sat by Pulse Oximetry (%) labs pending aaox3 ambulating no acute distress Assessment: 09/15/19 11:26 withdrawals pt is able to have full ROM to left shoulder only states he is achy. pt denies any falls, no injury no bruising noted Plan: continue detox increase fluids motrin/tylenol prn lidocaine patch ordered
[2019-09-15] MEDS: LEVOTHYROXINE NA 25 MCG TABLET (FP) PO SCH (11:39)
[2019-09-15] MEDS: SERTRALINE HCL 50 MG TABLET (FP) PO SCH (11:47)
[2019-09-15] MEDS: IBUPROFEN 400 MG TABLET (FP) PO PRN (11:49)
[2019-09-15] MEDS: LIDOCAINE 5% TOPICAL PATCH TP SCH (11:52)
[2019-09-15] MEDS: LEVOTHYROXINE NA 50 MCG TABLET (FP) PO SCH (11:55)
[2019-09-15] MEDS ORDERED: PNEUMOC 13-VAL CONJ-DIP CRM/PF 0.5 ML DISP.SYRIN IM ONE (12:00)
[2019-09-15] MEDS ORDERED: GABAPENTIN 300 MG CAPSULE (FP) PO SCH ×2 (14:00)
[2019-09-15] MEDS: FOLIC ACID 1 MG TABLET (FP) PO SCH (14:06)
[2019-09-15] MEDS: CLOTRIMAZOLE/BETAMET DIPROP 15 GM TUBE TP SCH ×2 (14:07→22:08)
[2019-09-15] MEDS: chlordiazePOXIDE HCL 25 MG CAPSULE PO PRN (14:15)
[2019-09-15] MEDS: GABAPENTIN 300 MG CAPSULE (FP) PO SCH ×2 (14:19→22:05)
[2019-09-15] MEDS: guaiFENesin 200 MG/10 ML 10 ML UNIT-DOSE CUPS PO PRN (14:19)
[2019-09-15] MEDS: OLANZapine 5 MG TABLET PO SCH (22:05)
[2019-09-15] MEDS: THIAMINE HCL 100 MG TABLET (FP) PO SCH (22:05)
[2019-09-15] MEDS: QUEtiapine FUMARATE 100 MG TABLET (FP) PO SCH (22:05)
[2019-09-15] MEDS: LIDOCAINE PATCH REMOVAL MC SCH (22:08)
[2019-09-15] MEDS: QUEtiapine FUMARATE 200 MG TABLET PO SCH (22:41)
[2019-09-16] MEDS: GABAPENTIN 300 MG CAPSULE (FP) PO SCH ×3 (05:58→22:11)
[2019-09-16] MEDS: LEVOTHYROXINE NA 25 MCG TABLET (FP) PO SCH (05:58)
[2019-09-16] MEDS: chlordiazePOXIDE HCL 25 MG CAPSULE PO PRN (05:58)
[2019-09-16] MEDS: DIVALPROEX SODIUM 500 MG TABLET E.C. PO SCH ×3 (05:58→22:11)
[2019-09-16] MEDS: chlordiazePOXIDE HCL 25 MG CAPSULE PO SCH ×4 (06:02→22:11)
[2019-09-16] MEDS: SERTRALINE HCL 50 MG TABLET (FP) PO SCH (10:34)
[2019-09-16] MEDS: PRENATAL VITAMINS W/ FOLIC ACID TABLET (FP) PO SCH (10:34)
[2019-09-16] MEDS: levETIRAcetam 500 MG TABLET (FP) PO SCH ×2 (10:34→22:10)
[2019-09-16] MEDS: FOLIC ACID 1 MG TABLET (FP) PO SCH (10:34)
[2019-09-16] MEDS: NICOTINE 21 MG/24 HOURS TOPICAL PATCH TD SCH (10:35)
[2019-09-16] MEDS: CLOTRIMAZOLE/BETAMET DIPROP 15 GM TUBE TP SCH ×2 (10:35→22:12)
[2019-09-16] MEDS: LIDOCAINE 5% TOPICAL PATCH TP SCH (10:36)
--- NOTE | 2019-09-16 11:36 | PN ---
S CIWA - CIWA Score Nausea/Vomitin-No Nausea/No Vomiting Muscle Tremors: 2 Anxiety: 2 Agitation: 3 Paroxysmal Sweats: 1-Minimal Palms Moist Orientation: 0-Oriented Tacttile Disturbances: 0-None Auditory Disturbances: 0-None Visual Disturbances: 0-None Headache: 0-None Present CIWA-Ar Total Score: 8 BHS Progress Note (SOAP) Subjective: sweats mild shakes tired interrupted sleep Objective: 09/16/19 11:35 Vital Signs Temperature 96.8 F L 09/16/19 09:53 Pulse Rate 57 L 09/16/19 09:53 Respiratory Rate 18 09/16/19 09:53 Blood Pressure 104/66 09/16/19 09:53 O2 Sat by Pulse Oximetry (%) labs pending aaox3 ambulating no acute distress Assessment: 09/16/19 11:36 withdrawals Plan: continue detox increase fluids
[2019-09-16 12:06] LABS: HEMATOCRIT 42.1 % (35.4-49); HEMOGLOBIN 13.9 GM/dL (11.7-16.9); MCH 32.5 pg (25.7-33.7); MCHC 33.1 g/dl (32.0-35.9); MEAN CELL VOLUME 98.4 fl (80-96); MEAN PLT VOLUME 8.4 fl (7.5-11.1); PLATELET COUNT 272 K/MM3 (134-434); RBC 4.27 M/mm3 (4.00-5.60); RDW 14.3 % (11.9-15.9); WHITE BLOOD COUNT 10.6 K/mm3 (4.0-10.0)
[2019-09-16 12:25] LABS: ALBUMIN 3.2 g/dl (3.4-5.0); BILIRUBIN,TOTAL 0.1 mg/dL (0.2-1); BLOOD UREA NITROGEN 15.5 mg/dL (7-18); CALCIUM 8.9 mg/dL (8.5-10.1); CREATININE 0.8 mg/dL (0.55-1.3); POTASSIUM 3.9 mmol/L (3.5-5.1); TOT PROT 6.2 g/dl (6.4-8.2)
[2019-09-16] MEDS: OLANZapine 5 MG TABLET PO SCH (22:11)
[2019-09-16] MEDS: QUEtiapine FUMARATE 200 MG TABLET PO SCH (22:11)
[2019-09-16] MEDS: THIAMINE HCL 100 MG TABLET (FP) PO SCH (22:11)
[2019-09-16] MEDS: LIDOCAINE PATCH REMOVAL MC SCH (22:12)
[2019-09-16] MEDS: QUEtiapine FUMARATE 100 MG TABLET (FP) PO SCH (22:16)
[2019-09-17] MEDS ORDERED: chlordiazePOXIDE HCL 10 MG CAPSULE PO PRN
[2019-09-17] MEDS: GABAPENTIN 300 MG CAPSULE (FP) PO SCH ×3 (05:41→22:41)
[2019-09-17] MEDS: DIVALPROEX SODIUM 500 MG TABLET E.C. PO SCH ×3 (05:41→22:41)
[2019-09-17] MEDS: chlordiazePOXIDE HCL 10 MG CAPSULE PO SCH ×4 (05:42→22:45)
[2019-09-17] MEDS: LEVOTHYROXINE NA 25 MCG TABLET (FP) PO SCH (06:12)
--- NOTE | 2019-09-17 09:47 | PN ---
S CIWA - CIWA Score Nausea/Vomitin-No Nausea/No Vomiting Muscle Tremors: 3 Anxiety: 3 Agitation: 2 Paroxysmal Sweats: 2 Orientation: 0-Oriented Tacttile Disturbances: 0-None Auditory Disturbances: 0-None Visual Disturbances: 0-None Headache: 0-None Present CIWA-Ar Total Score: 10 BHS Progress Note (SOAP) Subjective: sweats shakes interrupted sleep shoulder feeling better since having the lidocaine patch Objective: 09/17/19 09:45 Vital Signs Temperature 97.5 F L 09/17/19 09:19 Pulse Rate 87 09/17/19 09:19 Respiratory Rate 20 09/17/19 09:19 Blood Pressure 110/76 09/17/19 09:19 O2 Sat by Pulse Oximetry (%) Laboratory Tests 09/16/19 09/16/19 08:40 08:40 WBC 10.6 H RBC 4.27 Hgb 13.9 Hct 42.1 D MCV 98.4 H MCH 32.5 MCHC 33.1 RDW 14.3 Plt Count 272 D MPV 8.4 Sodium 140 Potassium 3.9 Chloride 108 H Carbon Dioxide 24 Anion Gap 9 BUN 15.5 Creatinine 0.8 Est GFR (CKD-EPI)AfAm 129.51 Est GFR (CKD-EPI)NonAf 111.74 Random Glucose 132 H Calcium 8.9 Total Bilirubin 0.1 L AST 10 L ALT 18 Alkaline Phosphatase 63 Total Protein 6.2 L Albumin 3.2 L labs noted aaox3 ambulating no acute distress Assessment: 09/17/19 09:45 withdrawals Plan: continue detox increase fluids continue lidocaine patch
[2019-09-17] MEDS: SERTRALINE HCL 50 MG TABLET (FP) PO SCH (10:09)
[2019-09-17] MEDS: levETIRAcetam 500 MG TABLET (FP) PO SCH ×2 (10:09→22:41)
[2019-09-17] MEDS: LIDOCAINE 5% TOPICAL PATCH TP SCH (10:10)
[2019-09-17] MEDS: FOLIC ACID 1 MG TABLET (FP) PO SCH (10:10)
[2019-09-17] MEDS: PRENATAL VITAMINS W/ FOLIC ACID TABLET (FP) PO SCH (10:11)
[2019-09-17] MEDS: NICOTINE 21 MG/24 HOURS TOPICAL PATCH TD SCH (10:11)
[2019-09-17] MEDS: CLOTRIMAZOLE/BETAMET DIPROP 15 GM TUBE TP SCH ×2 (10:11→22:41)
[2019-09-17] MEDS: guaiFENesin 200 MG/10 ML 10 ML UNIT-DOSE CUPS PO PRN (13:14)
[2019-09-17] MEDS: LIDOCAINE PATCH REMOVAL MC SCH (22:41)
[2019-09-17] MEDS: QUEtiapine FUMARATE 200 MG TABLET PO SCH (22:41)
[2019-09-17] MEDS: OLANZapine 5 MG TABLET PO SCH (22:41)
[2019-09-17] MEDS: THIAMINE HCL 100 MG TABLET (FP) PO SCH (22:41)
[2019-09-17] MEDS: QUEtiapine FUMARATE 100 MG TABLET (FP) PO SCH (22:41)
[2019-09-18] MEDS: DIVALPROEX SODIUM 500 MG TABLET E.C. PO SCH ×3 (06:31→22:33)
[2019-09-18] MEDS: chlordiazePOXIDE HCL 10 MG CAPSULE PO SCH ×2 (06:31→17:22)
[2019-09-18] MEDS: LEVOTHYROXINE NA 25 MCG TABLET (FP) PO SCH (06:31)
[2019-09-18] MEDS: GABAPENTIN 300 MG CAPSULE (FP) PO SCH ×3 (06:31→22:33)
[2019-09-18] MEDS: SERTRALINE HCL 50 MG TABLET (FP) PO SCH (10:05)
[2019-09-18] MEDS: levETIRAcetam 500 MG TABLET (FP) PO SCH ×2 (10:05→22:33)
[2019-09-18] MEDS: NICOTINE 21 MG/24 HOURS TOPICAL PATCH TD SCH (10:05)
[2019-09-18] MEDS: FOLIC ACID 1 MG TABLET (FP) PO SCH (10:05)
[2019-09-18] MEDS: IBUPROFEN 400 MG TABLET (FP) PO PRN (10:05)
[2019-09-18] MEDS: PRENATAL VITAMINS W/ FOLIC ACID TABLET (FP) PO SCH (10:05)
[2019-09-18] MEDS: CLOTRIMAZOLE/BETAMET DIPROP 15 GM TUBE TP SCH ×2 (10:05→22:33)
[2019-09-18] MEDS: LIDOCAINE 5% TOPICAL PATCH TP SCH (10:05)
--- NOTE | 2019-09-18 11:26 | PN ---
S CIWA - CIWA Score Nausea/Vomitin-No Nausea/No Vomiting Muscle Tremors: 2 Anxiety: 1-Mildly Anxious Agitation: 2 Paroxysmal Sweats: 1-Minimal Palms Moist Orientation: 0-Oriented Tacttile Disturbances: 0-None Auditory Disturbances: 0-None Visual Disturbances: 0-None Headache: 0-None Present CIWA-Ar Total Score: 6 BHS Progress Note (SOAP) Subjective: sweats anxiety interrupted sleep Objective: 09/18/19 11:26 Vital Signs Temperature 97.2 F L 09/18/19 09:28 Pulse Rate 110 H 09/18/19 09:28 Respiratory Rate 09/18/19 09:28 Blood Pressure 117/90 09/18/19 09:28 O2 Sat by Pulse Oximetry (%) aaox3 ambulating no acute distress Assessment: 09/18/19 11:26 mild withdrawals Plan: continue detox increase fluids d/c in am
[2019-09-18] MEDS: OLANZapine 5 MG TABLET PO SCH (22:33)
[2019-09-18] MEDS: QUEtiapine FUMARATE 100 MG TABLET (FP) PO SCH (22:33)
[2019-09-18] MEDS: THIAMINE HCL 100 MG TABLET (FP) PO SCH (22:33)
[2019-09-18] MEDS: QUEtiapine FUMARATE 200 MG TABLET PO SCH (22:33)
[2019-09-18] MEDS: LIDOCAINE PATCH REMOVAL MC SCH (22:33)
[2019-09-19] MEDS ORDERED: chlordiazePOXIDE HCL 10 MG CAPSULE PO ONE (05:00)
[2019-09-19] MEDS: GABAPENTIN 300 MG CAPSULE (FP) PO SCH (05:54)
[2019-09-19] MEDS: DIVALPROEX SODIUM 500 MG TABLET E.C. PO SCH (05:54)
[2019-09-19] MEDS: LEVOTHYROXINE NA 25 MCG TABLET (FP) PO SCH (06:44)
--- NOTE | 2019-09-19 09:17 | DS ---
[facility] Detox Discharge Summary Admission Date: 09/14/19 Discharge Date: 09/19/19 - History Present History: Alcohol Dependence - Physical Exam Results Vital Signs: Vital Signs Temperature 96.6 F L 09/19/19 06:00 Pulse Rate 72 09/19/19 06:00 Respiratory Rate 18 09/19/19 06:00 Blood Pressure 131/77 09/19/19 06:00 O2 Sat by Pulse Oximetry (%) - Treatment Hospital Course: Detox Protocol Followed, Detoxed Safely, Responded well, Discharged Condition Good - Medication Discharge Medications: Ambulatory Orders Levothyroxine Sodium [Synthroid] 50 mcg PO DAILY 07/24/19 Simvastatin 20 mg PO HS 07/24/19 Gabapentin [Gralise] 600 mg PO TID #90 tab.er.24h 08/20/19 Divalproex [Depakote -] 500 mg PO TID 09/14/19 Famotidine 20 mg PO DAILY 09/14/19 Folic Acid 1 mg PO DAILY 09/14/19 Multivitamins [Tab-A-Vit -] 1 tab PO DAILY 09/14/19 Olanzapine [Olanzapine Odt] 5 mg PO HS 09/14/19 Quetiapine Fumarate [Seroquel -] 100 mg PO HS 09/14/19 Sertraline HCl [Zoloft] 50 mg PO DAILY 09/14/19 levETIRAcetam [Keppra -] 500 mg PO BID 09/14/19 - Diagnosis (1) Cannabis abuse Current Visit: Yes Status: Chronic (2) Uncomplicated alcohol withdrawal Current Visit: Yes Status: Chronic (3) Asthma Current Visit: Yes Status: Chronic Qualifiers: Asthma severity: unspecified severity Asthma persistence: unspecified Asthma complication type: uncomplicated Qualified Code(s): J45.909 - Unspecified asthma, uncomplicated (4) Bipolar disorder Current Visit: Yes Status: Chronic (5) Hypothyroidism Current Visit: Yes Status: Chronic Qualifiers: Hypothyroidism type: unspecified Qualified Code(s): E03.9 - Hypothyroidism , unspecified (6) Nicotine dependence Current Visit: Yes Status: Chronic Qualifiers: Nicotine product type: cigarettes Substance use status: uncomplicated Qualified Code(s): F17.210 - Nicotine dependence, cigarettes, uncomplicated - AMA Did Patient Leave Against Medical Advice: No
[2019-09-19 09:44] VITALS: BP 130/91; PULSE 108; TEMP 98.6
== END 2019-09-19 09:25 | disposition home or self-care (01) | DRG 775 ==
LOC: YASAS 08:29 → Y6N 10:22
PROVIDERS: ADMIT Allergy & Immunology; ATTEND Allergy & Immunology
PROC: HZ2ZZZZ Detoxification Services for Substance Abuse Treatment (ICD-10-PCS; principal; 2019-09-14)
DX: F10.230 Alcohol dependence with withdrawal, uncomplicated (principal); F12.10 Cannabis abuse, uncomplicated; F17.210 Nicotine dependence, cigarettes, uncomplicated; F19.24 Other psychoactive substance dependence with psychoactive substance-induced mood disorder; F19.282 Other psychoactive substance dependence with psychoactive substance-induced sleep disorder; F31.9 Bipolar disorder, unspecified; E03.9 Hypothyroidism, unspecified; J44.9 Chronic obstructive pulmonary disease, unspecified; J45.998 Other asthma; M25.512 Pain in left shoulder; E78.00 Pure hypercholesterolemia, unspecified; G40.909 Epilepsy, unspecified, not intractable, without status epilepticus
CPT/HCPCS: 36415; 80053; 85027

== ENCOUNTER 2020-02-15 09:29 | Inpatient (IN) | payer OTHER ==
[2020-02-15 10:21] VITALS: BMI 24.1
--- NOTE | 2020-02-15 10:37 | HP ---
CIWA Score Nausea/Vomitin Muscle Tremors: 3 Anxiety: 2 Agitation: 2 Paroxysmal Sweats: 2 Orientation: 0-Oriented Tacttile Disturbances: 1-Very Mild Itch/Numbness Auditory Disturbances: 2-Mild Harshness/Frighten Visual Disturbances: 1-Very Mild Sensitivity Headache: 2-Mild CIWA-Ar Total Score: 17 - Admission Criteria OASAS Guidelines: Admission for Medically Managed Detox: Requires at least one of the followin. CIWA greater than 12 2. Seizures within the past 24 hours 3. Delirium tremens within the past 24 hours 4. Hallucinations within the past 24 hours 5. Acute intervention needed for co occurring medical disorder 6. Acute intervention needed for co occurring psychiatric disorder 7. Severe withdrawal that cannot be handled at a lower level of care (continued vomiting, continued diarrhea, abnormal vital signs) requiring intravenous medication and/or fluids 8. Patient presents the following: CIWA greater than 12 Admission Criteria Met: Admission criteria met Admitting History and Physical - Smoking History Smoking history: Current every day smoker Have you smoked in the past 12 months: Yes Aproximately how many cigarettes per day: 40 - Alcohol/Substance Use Hx Alcohol Use: Yes Admission ROS S - HPI Chief Complaint: I am here because I want to stop drinking Allergies/Adverse Reactions: Allergies Allergy/AdvReac Type Severity Reaction Status Date / Time No Known Allergies Allergy Verified 02/15/20 10:16 History of Present Illness: 39 year old male with alcoholism presents for alcohol detox. Patient was sent to the ED at [facility] last night for blackout from intoxication. He was given 2 doses of librium and 1 dose of ativan during the visit but he remains with severe wi thdrawal symptoms. Exam Limitations: No Limitations - Ebola screening Have you traveled outside of the country in the last 21 days: No Have you had contact with anyone from an Ebola affected area: No Have you been sick,other than usual withdrawal symptoms: No Do you have a fever: No - Review of Systems Constitutional: Loss of Appetite, Night Sweats, Changes in sleep, Weakness, Unintentional Wgt. Loss, Other EENT: reports: No Symptoms Reported Respiratory: reports: No Symptoms reported Cardiac: reports: Lightheadedness, Palpitations GI: reports: Nausea, Poor Appetite, Poor Fluid Intake, Vomiting : reports: No Symptoms Reported Musculoskeletal: reports: Back Pain, Muscle Pain, Muscle Weakness Integumentary: reports: Flushing Neuro: reports: Headache, Tremors Endocrine: reports: No Symptoms Reported Hematology: reports: No Symptoms Reported Psychiatric: reports: Anxious, Depressed Other Systems: Reviewed and Negative Patient History - Patient Medical History Hx Anemia: No Hx Asthma: Yes Hx Chronic Obstructive Pulmonary Disease (COPD): Yes Hx Cancer: No Hx Cardiac Disorders: No Hx Congestive Heart Failure: No Hx Hypertension: No Hx Hypercholesterolemia: Yes Hx Pacemaker: No HX Cerebrovascular Accident: No Hx Seizures: Yes (12/2019) Hx Dementia: No Hx Diabetes: No Hx Gastrointestinal Disorders: No Hx Liver Disease: No Hx Genitourinary Disorders: No Hx Sexually Transmitted Disorders: No Hx Renal Disease (ESRD): No Hx Thyroid Disease: Yes (hyperthyroidism) Hx Human Immunodeficiency Virus (HIV): No Hx Hepatitis C: No Hx Depression: Yes Hx Suicide Attempt: No Hx Bipolar Disorder: Yes Hx Schizophrenia: No - Patient Surgical History Past Surgical History: No Hx Neurologic Surgery: No Hx Cataract Extraction: No Hx Cardiac Surgery: No Hx Lung Surgery: No Hx Breast Surgery: No Hx Breast Biopsy: No Hx Abdominal Surgery: No Hx Appendectomy: No Hx Cholecystectomy: No Hx Genitourinary Surgery: No Hx Section: No Hx Orthopedic Surgery: No Anesthesia Reaction: No - PPD History Previous Implant?: Yes Documented Results: Negative w/proof Implanted On Prior [facility] Admission?: Yes Date: 01/20/19 Results: 0MM PPD to be Administered?: Yes - Smoking Cessation Smoking history: Current every day smoker Have you smoked in the past 12 months: Yes Aproximately how many cigarettes per day: 40 Hx Chewing Tobacco Use: No Initiated information on smoking cessation: Yes 'Breaking Loose' booklet given: 02/15/20 - Substances abused Alcohol Substance route: Oral Frequency: Daily Amount used: 1/2 gallon vodka/6(24oz Beers) Age of first use: 9 Date of last use: 02/14/20 Marijuana/Hashish Substance route: Smoking Frequency: 1-3 times last 30 days Amount used: $10 Age of first use: 14 Date of last use: 01/27/20 Admission Physical Exam BHS - Vital Signs Vital Signs: Vital Signs - 24 hr 02/15/20 10:17 Temperature 98 F Pulse Rate 92 H Respiratory 18 Rate Blood Pressure 125/81 - Physical General Appearance: Yes: Disheveled HEENTM: Yes: Normocephalic, Normal Voice, TARAS, Pharynx Normal Respiratory: Yes: Chest Non-Tender, Lungs Clear, Normal Breath Sounds, No Respiratory Distress, No Accessory Muscle Use Neck: Yes: No masses,lesions,Nodules, Supple Cardiology: Yes: Regular Rhythm, Regular Rate, S1, S2, Tachycardia Abdominal: Yes: Normal Bowel Sounds, Non Tender Genitourinary: Yes: Within Normal Limits Back: Yes: Normal Inspection Musculoskeletal: Yes: full range of Motion Extremities: Yes: Tremors Neurological: Yes: Fully Oriented, Alert, Normal Mood/Affect, Normal Response Integumentary: Yes: Moist, Other (multiple scabs from previous falls) Lymphatic: Yes: Within Normal Limits - Diagnostic (1) Asthma Current Visit: Yes Status: Chronic Qualifiers: Asthma severity: mild Asthma persistence: intermittent Asthma complication type: uncomplicated Qualified Code(s): J45.20 - Mild intermittent asthma, uncomplicated (2) COPD (chronic obstructive pulmonary disease) Current Visit: Yes Status: Chronic Qualifiers: COPD type: chronic bronchitis (3) Hypercholesterolemia Current Visit: No Status: Chronic (4) Hypothyroidism Current Visit: Yes Status: Chronic Qualifiers: Hypothyroidism type: acquired Qualified Code(s): E03.9 - Hypothyroidism, unspecified (5) Seizure disorder Current Visit: Yes Status: Chronic Cleared for Admission BHS - Detox or Rehab S Level of Care: Medically Managed Claeared for Rehab Admission: No Breathalyzer - Breathalyzer Breathalyzer: 0 Urine Drug Screen - Test Device Lot number: [id number] Expiration date: 07/26/21 - Control Is test valid?: Yes - Results Drug screen NEGATIVE: No Urine drug screen results: SENIA-Cocaine, BZO-Benzodiazepines Inpatient Rehab Admission - Rehab Decision to Admit Inpatient rehab admission?: No
[2020-02-15] MEDS ORDERED: MAGNESIUM HYDROX 2400MG/30ML ORAL SUSPENSION 30 ML CUP PO PRN (10:51)
[2020-02-15] MEDS ORDERED: BISMUTH SUBSALICYLATE 524 MG/30 ML UD PO PRN (10:51)
[2020-02-15] MEDS ORDERED: ONDANSETRON *ODT* 4 MG TABLET SL ONE (10:51)
[2020-02-15] MEDS ORDERED: ACETAMINOPHEN 325 MG TABLET (FP) PO PRN ×2 (10:51)
[2020-02-15] MEDS ORDERED: MAGNESIUM CITRATE 300 ML BOTTLE PO PRN (10:51)
[2020-02-15] MEDS ORDERED: MENTHOL/PHENOL 1 EACH UD MM PRN (10:51)
[2020-02-15] MEDS ORDERED: IBUPROFEN 400 MG TABLET (FP) PO PRN (10:51)
[2020-02-15] MEDS ORDERED: MAG HYDROX/AL HYDROX/SIMETH 30 ML UNIT-DOSE CUP PO PRN (10:51)
[2020-02-15] MEDS ORDERED: chlordiazePOXIDE HCL 25 MG CAPSULE PO PRN (10:51)
[2020-02-15] MEDS ORDERED: METHOCARBAMOL 500 MG TABLET PO PRN (10:51)
[2020-02-15] MEDS: chlordiazePOXIDE HCL 25 MG CAPSULE PO SCH ×3 (12:10→22:29)
[2020-02-15] MEDS: NICOTINE 21 MG/24 HOURS TOPICAL PATCH TD SCH (12:12)
[2020-02-15] MEDS: NICOTINE POLACRILEX 2 MG GUM BUC PRN ×3 (12:20→22:30)
[2020-02-15] MEDS ORDERED: DIVALPROEX SODIUM 500 MG TABLET E.C. PO SCH (14:00)
[2020-02-15] MEDS: hydrOXYzine PAMOATE 50 MG CAPSULE (FP) PO SCH ×3 (14:49→22:29)
[2020-02-15] MEDS: MELATONIN 5 MG TABLETS PO SCH (22:29)
[2020-02-15] MEDS: DIVALPROEX SODIUM 500 MG TABLET E.C. PO SCH (22:29)
[2020-02-15] MEDS: levETIRAcetam 500 MG TABLET (FP) PO SCH (22:29)
[2020-02-15] MEDS: THIAMINE HCL 100 MG TABLET (FP) PO SCH (22:29)
[2020-02-16] MEDS: chlordiazePOXIDE HCL 25 MG CAPSULE PO SCH ×4 (05:26→22:20)
[2020-02-16] MEDS ORDERED: LEVOTHYROXINE NA 88 MCG TABLET (FP) PO SCH (07:00)
[2020-02-16] MEDS ORDERED: LEVOTHYROXINE NA 25 MCG TABLET (FP) PO SCH (07:01)
[2020-02-16] MEDS: LEVOTHYROXINE NA 25 MCG TABLET (FP) PO SCH (07:17)
[2020-02-16 09:58] LABS: HEMATOCRIT 41.4 % (35.4-49); HEMOGLOBIN 14.2 GM/dL (11.7-16.9); MCHC 34.2 g/dl (32.0-35.9); MEAN CELL VOLUME 96.4 fl (80-96); MEAN PLT VOLUME 8.9 fl (7.5-11.1); PLATELET COUNT 214 K/MM3 (134-434); RBC 4.29 M/mm3 (4.00-5.60); WHITE BLOOD COUNT 7.1 K/mm3 (4.0-10.0)
[2020-02-16 09:59] LABS: ALBUMIN 3.4 g/dl (3.4-5.0); BILIRUBIN,TOTAL 0.4 mg/dL (0.2-1); BLOOD UREA NITROGEN 15.2 mg/dL (7-18); CALCIUM 8.5 mg/dL (8.5-10.1); CREATININE 0.9 mg/dL (0.55-1.3); POTASSIUM 3.5 mmol/L (3.5-5.1); TOT PROT 6.2 g/dl (6.4-8.2)
[2020-02-16] MEDS: NICOTINE 21 MG/24 HOURS TOPICAL PATCH TD SCH (10:22)
[2020-02-16] MEDS: levETIRAcetam 500 MG TABLET (FP) PO SCH ×2 (10:22→22:20)
[2020-02-16] MEDS: DIVALPROEX SODIUM 500 MG TABLET E.C. PO SCH ×2 (10:22→22:20)
[2020-02-16] MEDS: hydrOXYzine PAMOATE 50 MG CAPSULE (FP) PO SCH ×4 (10:22→22:20)
[2020-02-16] MEDS: PRENATAL VITAMINS W/ FOLIC ACID TABLET (FP) PO SCH (10:22)
[2020-02-16] MEDS: NICOTINE POLACRILEX 2 MG GUM BUC PRN ×4 (10:24→22:21)
--- NOTE | 2020-02-16 10:55 | CONSULT ---
[facility] Psychiatric Consult - Data Date of interview: 02/16/20 Admission source: [facility] Identifying data: Readmission to [address] [place] [address] for this 39 y/o male self- referred for detoxification treatment. MARILOU issues : alcohol, cannabis. Patient is single without dependents, homeless ([facility] resident), unemployed and supported on Public Assistance. Substance Abuse History: Discussed with the patient. MARILOU profile as follows : Smoking history: Current every day smoker. Have you smoked in the past 12 months: Yes. Aproximately how many cigarettes per day: 40. Hx Chewing Tobacco Use: No. Initiated information on smoking cessation: Yes. 'Breaking Loose' booklet given: 02/15/20. - Substances abused. Alcohol. Substance route: Oral. Frequency: Daily. Amount used: 1/2 gallon vodka/6(24oz Beers). Age of first use: 9. Date of last use: 02/14/20. Marijuana/Hashish. Substance route: Smoking. Frequency: 1-3 times last 30 days. Amount used: $10. Age of first use: 14. Date of last use: 01/27/20 Medical History: Medical profile is remarkable for bronchial asthma, GERD, chronic bronchitis, hyperthyroidism, dyslipidemia and a history of seizure disorder (on levetiracetam). Psychiatric History: Extensive history of psychiatric illness (onset at age 9-10 : temper tantrums, behavioral disturbances, dysphoria). Precipitant : of biological father. Patient endorses a history of multiple psychiatric hospitalizations ([facility], [facility], [facility], [facility]). Mr Cardona has received several diagnoses over the years (bipolar disorder, MDD, PTSD, panic disorder with agoraphobia) and managed with various drugs which include gabapentin, valproate, quetiapine, sertraline, minipres and other unnamed agents. He admits to a pattern of inconsistent adherence to OPD care. He is now managed by the housestaff psychiatrist at the [facility]. Current maintenance medications consist of : depakote 500 mg/1000 mg + keppra 750 mg/bid + zoloft 50 mg/day + zyprexa 10 mg/hs + gabapentin 600 mg/tid. Known history of one suicide attempt via [place] roulette in 2013 (girlfriend called EMS/Police confiscated the weapon). Physical/Sexual Abuse/Trauma History: Patient denies history of abuse. Additional Comment: Urine drug screen results: SENIA-Cocaine, BZO-Benzodiazepines. Noted. Mental Status Exam - Mental Status Exam Alert and Oriented to: Time, Place, Person Cognitive Function: Good Patient Appearance: Unkempt, Disheveled Mood: Nervous, Withdrawn Affect: Mood Congruent, Constricted Patient Behavior: Fatigued, Appropriate, Cooperative Speech Pattern: Clear, Appropriate Voice Loudness: Normal Thought Process: Goal Oriented Thought Disorder: Not Present Hallucinations: Denies Suicidal Ideation: Denies Homicidal Ideation: Denies Insight/Judgement: Poor Sleep: Poorly, Difficulty falling asleep Appetite: Good Gait/Station: Normal Psychiatric Findings - Problem List ([place] 1, 2,3) (1) Uncomplicated alcohol withdrawal Current Visit: Yes Status: Acute (2) Cannabis abuse Current Visit: Yes Status: Chronic (3) Nicotine dependence Current Visit: Yes Status: Chronic Qualifiers: Nicotine product type: cigarettes Substance use status: uncomplicated Qualified Code(s): F17.210 - Nicotine dependence, cigarettes, uncomplicated (4) Substance induced mood disorder Current Visit: Yes Status: Chronic (5) History of bipolar disorder Current Visit: Yes Status: Chronic Comment: Non-compliant with psychiatric aftercare. (6) Insomnia Current Visit: Yes Status: Chronic Qualifiers: Insomnia type: unspecified Qualified Code(s): G47.00 - Insomnia, unspecified (7) Non-compliant patient Current Visit: Yes Status: Chronic - Initial Treatment Plan Initial Treatment Plan: Psychoeducation. Sleep hygiene. Detoxification in progress. AA meetings. [facility] services revisited with the patient. Support. Contact made with pharmacist at ([phone]) for verification of medications : confirmed refills for depakote 500 mg po daily/1000 mg po hs + keppra 750 mg po bid + zoloft 50 mg po daily + zyprexa 10 mg po hs + gabapentin 600 mg po tid (02/05/20). All resumed except for gabapentin. Side effects/benefits of each medication are discussed with the patient. Mr Cardona has expressed his agreement with this plan of care. Conent (verbal) given. Valproic acid level : pending. Observation.
--- NOTE | 2020-02-16 11:09 | PN ---
S CIWA - CIWA Score Nausea/Vomitin-Mild Nausea/No Vomiting Muscle Tremors: 2 Anxiety: 1-Mildly Anxious Agitation: 1-Slight > Activity Paroxysmal Sweats: No Perspiration Orientation: 0-Oriented Tacttile Disturbances: 0-None Auditory Disturbances: 0-None Visual Disturbances: 0-None Headache: 0-None Present CIWA-Ar Total Score: 5 BHS Progress Note (SOAP) Subjective: pt admitted yesterday for alcohol detox. O: Vital Signs - 24 hr 02/15/20 02/15/20 02/15/20 11:29 13:02 16:44 Temperature 97.0 F L 97.1 F L 97.0 F L Pulse Rate 68 68 90 Respiratory 18 18 16 Rate Blood Pressure 121/82 95/61 110/71 O2 Sat by Pulse 96 Oximetry (%) 02/15/20 02/16/20 02/16/20 20:36 00:25 04:36 Temperature 98.0 F Pulse Rate 62 Respiratory 16 18 18 Rate Blood Pressure 105/72 O2 Sat by Pulse 97 Oximetry (%) 02/16/20 02/16/20 06:34 08:35 Temperature 96.9 F L 97 F L Pulse Rate 59 L 69 Respiratory 18 18 Rate Blood Pressure 99/61 100/65 O2 Sat by Pulse 95 Oximetry (%) Laboratory Tests 02/16/20 02/16/20 02/16/20 07:00 07:00 07:00 WBC 7.1 RBC 4.29 Hgb 14.2 Hct 41.4 MCV 96.4 H MCH 33.0 MCHC 34.2 RDW 14.0 Plt Count 214 D MPV 8.9 Sodium 139 Potassium 3.5 Chloride 103 Carbon Dioxide 28 Anion Gap 8 BUN 15.2 Creatinine 0.9 Est GFR (CKD-EPI)AfAm 123.39 Est GFR (CKD-EPI)NonAf 106.46 Random Glucose 95 Calcium 8.5 Total Bilirubin 0.4 AST 26 ALT 37 Alkaline Phosphatase 100 Total Protein 6.2 L Albumin 3.4 Syphilis Serology RPR Titer Cancelled 02/16/20 07:00 WBC RBC Hgb Hct MCV MCH MCHC RDW Plt Count MPV Sodium Potassium Chloride Carbon Dioxide Anion Gap BUN Creatinine Est GFR (CKD-EPI)AfAm Est GFR (CKD-EPI)NonAf Random Glucose Calcium Total Bilirubin AST ALT Alkaline Phosphatase Total Protein Albumin Syphilis Serology Non-reactive RPR Titer a/p: AUD- continue detox protocol- pt without complaints today
--- NOTE | 2020-02-16 16:32 | CONSULT ---
[facility] Psychiatric Consult - Data Date of interview: 02/16/20 Admission source: [facility] Identifying data: Readmission to [address] [place] [address] for this 39 y/o male self- referred for detoxification treatment. MARILOU issues : alcohol, cannabis. Patient is single without dependents, homeless (long-term resident), unemployed and supported on Public Assistance. Psychiatric Findings - Problem List ([place] 1, 2,3) (1) Uncomplicated alcohol withdrawal Current Visit: Yes Status: Acute (2) Cannabis abuse Current Visit: Yes Status: Chronic (3) Nicotine dependence Current Visit: Yes Status: Chronic Qualifiers: Nicotine product type: cigarettes Substance use status: uncomplicated Qualified Code(s): F17.210 - Nicotine dependence, cigarettes, uncomplicated (4) Substance induced mood disorder Current Visit: Yes Status: Chronic (5) History of bipolar disorder Current Visit: Yes Status: Chronic Comment: Non-compliant with psychiatric aftercare. (6) Insomnia Current Visit: Yes Status: Chronic Qualifiers: Insomnia type: unspecified Qualified Code(s): G47.00 - Insomnia, unspecified (7) Non-compliant patient Current Visit: Yes Status: Chronic
[2020-02-16] MEDS: OLANZapine 10 MG TABLET PO SCH (22:20)
[2020-02-16] MEDS: THIAMINE HCL 100 MG TABLET (FP) PO SCH (22:20)
[2020-02-16] MEDS: MELATONIN 5 MG TABLETS PO SCH (22:21)
[2020-02-17] MEDS: NICOTINE POLACRILEX 2 MG GUM BUC PRN ×4 (01:03→21:41)
[2020-02-17] MEDS: chlordiazePOXIDE HCL 25 MG CAPSULE PO SCH ×4 (05:33→22:03)
[2020-02-17] MEDS: LEVOTHYROXINE NA 25 MCG TABLET (FP) PO SCH (06:47)
--- NOTE | 2020-02-17 10:36 | PN ---
[facility] CIWA - CIWA Score Nausea/Vomitin-No Nausea/No Vomiting Muscle Tremors: 3 Anxiety: 3 Agitation: 1-Slight > Activity Paroxysmal Sweats: 2 Orientation: 0-Oriented Tacttile Disturbances: 0-None Auditory Disturbances: 0-None Visual Disturbances: 1-Very Mild Sensitivity Headache: 0-None Present CIWA-Ar Total Score: 10 S Progress Note (SOAP) Subjective: 39 years old male admitted on 02/15/20 for alcohol withdrawal sx management treating with librium detox regiment feeling ok resting in bed feeling tired trouble sleep last night tremor restlessness Objective: 02/17/20 10:32 Vital Signs Temperature 96.4 F L 02/17/20 09:16 Pulse Rate 64 02/17/20 09:16 Respiratory Rate 17 02/17/20 09:16 Blood Pressure 76/49 L 02/17/20 09:16 O2 Sat by Pulse Oximetry (%) 99 02/17/20 06:49 Laboratory Last Values WBC 7.1 K/mm3 (4.0-10.0) 02/16/20 07:00 RBC 4.29 M/mm3 (4.00-5.60) 02/16/20 07:00 Hgb 14.2 GM/dL (11.7-16.9) 02/16/20 07:00 Hct 41.4 % (35.4-49) 02/16/20 07:00 MCV 96.4 fl (80-96) H 02/16/20 07:00 MCH 33.0 pg (25.7-33.7) 02/16/20 07:00 MCHC 34.2 g/dl (32.0-35.9) 02/16/20 07:00 RDW 14.0 % (11.9-15.9) 02/16/20 07:00 Plt Count 214 K/MM3 (134-434) D 02/16/20 07:00 MPV 8.9 fl (7.5-11.1) 02/16/20 07:00 Sodium 139 mmol/L (136-145) 02/16/20 07:00 Potassium 3.5 mmol/L (3.5-5.1) 02/16/20 07:00 Chloride 103 mmol/L (98-107) 02/16/20 07:00 Carbon Dioxide 28 mmol/L (21-32) 02/16/20 07:00 Anion Gap 8 MMOL/L (8-16) 02/16/20 07:00 BUN 15.2 mg/dL (7-18) 02/16/20 07:00 Creatinine 0.9 mg/dL (0.55-1.3) 02/16/20 07:00 Est GFR (CKD-EPI)AfAm 123.39 02/16/20 07:00 Est GFR (CKD-EPI)NonAf 106.46 02/16/20 07:00 Random Glucose 95 mg/dL (74-106) 02/16/20 07:00 Calcium 8.5 mg/dL (8.5-10.1) 02/16/20 07:00 Total Bilirubin 0.4 mg/dL (0.2-1) 02/16/20 07:00 AST 26 U/L (15-37) 02/16/20 07:00 ALT 37 U/L (13-61) 02/16/20 07:00 Alkaline Phosphatase 100 U/L (45-117) 02/16/20 07:00 Total Protein 6.2 g/dl (6.4-8.2) L 02/16/20 07:00 Albumin 3.4 g/dl (3.4-5.0) 02/16/20 07:00 Syphilis Serology Non-reactive (NONREACTIVE) 02/16/20 07:00 RPR Titer Cancelled 02/16/20 07:00 HIV Ag/Ab Combo Qual Negative (NEGATIVE) 02/16/20 07:00 lab noted Assessment: 02/17/20 10:36 alcohol withdrawal Plan: librium regiment
[2020-02-17] MEDS: NICOTINE 21 MG/24 HOURS TOPICAL PATCH TD SCH (10:44)
[2020-02-17] MEDS: levETIRAcetam 500 MG TABLET (FP) PO SCH ×2 (10:45→21:40)
[2020-02-17] MEDS: PRENATAL VITAMINS W/ FOLIC ACID TABLET (FP) PO SCH (10:45)
[2020-02-17] MEDS: hydrOXYzine PAMOATE 50 MG CAPSULE (FP) PO SCH ×4 (10:45→21:40)
[2020-02-17] MEDS: DIVALPROEX SODIUM 500 MG TABLET E.C. PO SCH ×2 (10:45→21:40)
[2020-02-17] MEDS: SERTRALINE HCL 50 MG TABLET (FP) PO SCH (10:45)
[2020-02-17] MEDS: OLANZapine 10 MG TABLET PO SCH (21:40)
[2020-02-17] MEDS: MELATONIN 5 MG TABLETS PO SCH (21:40)
[2020-02-17] MEDS: THIAMINE HCL 100 MG TABLET (FP) PO SCH (21:40)
[2020-02-18] MEDS ORDERED: chlordiazePOXIDE HCL 10 MG CAPSULE PO PRN
[2020-02-18] MEDS: chlordiazePOXIDE HCL 10 MG CAPSULE PO SCH ×4 (05:36→22:02)
[2020-02-18] MEDS: LEVOTHYROXINE NA 25 MCG TABLET (FP) PO SCH (07:07)
--- NOTE | 2020-02-18 09:37 | PN ---
[facility] CIWA - CIWA Score Nausea/Vomitin-No Nausea/No Vomiting Muscle Tremors: 3 Anxiety: 3 Agitation: 0-Normal Activity Paroxysmal Sweats: 1-Minimal Palms Moist Orientation: 0-Oriented Tacttile Disturbances: 0-None Auditory Disturbances: 0-None Visual Disturbances: 0-None Headache: 0-None Present CIWA-Ar Total Score: 7 S Progress Note (SOAP) Subjective: 39 years old male admitted on 02/13/20 for alcohol withdrawal sx management treating with librium detox regiment feeling ok today ambulating on hallway discuss aftercare with staff tremor anxiety less restlessness Objective: 02/18/20 09:47 Vital Signs Temperature 96.6 F L 02/18/20 08:40 Pulse Rate 68 02/18/20 08:40 Respiratory Rate 18 02/18/20 08:40 Blood Pressure 102/73 02/18/20 08:40 O2 Sat by Pulse Oximetry (%) 95 02/18/20 06:03 Laboratory Last Values WBC 7.1 K/mm3 (4.0-10.0) 02/16/20 07:00 RBC 4.29 M/mm3 (4.00-5.60) 02/16/20 07:00 Hgb 14.2 GM/dL (11.7-16.9) 02/16/20 07:00 Hct 41.4 % (35.4-49) 02/16/20 07:00 MCV 96.4 fl (80-96) H 02/16/20 07:00 MCH 33.0 pg (25.7-33.7) 02/16/20 07:00 MCHC 34.2 g/dl (32.0-35.9) 02/16/20 07:00 RDW 14.0 % (11.9-15.9) 02/16/20 07:00 Plt Count 214 K/MM3 (134-434) D 02/16/20 07:00 MPV 8.9 fl (7.5-11.1) 02/16/20 07:00 Sodium 139 mmol/L (136-145) 02/16/20 07:00 Potassium 3.5 mmol/L (3.5-5.1) 02/16/20 07:00 Chloride 103 mmol/L (98-107) 02/16/20 07:00 Carbon Dioxide 28 mmol/L (21-32) 02/16/20 07:00 Anion Gap 8 MMOL/L (8-16) 02/16/20 07:00 BUN 15.2 mg/dL (7-18) 02/16/20 07:00 Creatinine 0.9 mg/dL (0.55-1.3) 02/16/20 07:00 Est GFR (CKD-EPI)AfAm 123.39 02/16/20 07:00 Est GFR (CKD-EPI)NonAf 106.46 02/16/20 07:00 Random Glucose 95 mg/dL (74-106) 02/16/20 07:00 Calcium 8.5 mg/dL (8.5-10.1) 02/16/20 07:00 Total Bilirubin 0.4 mg/dL (0.2-1) 02/16/20 07:00 AST 26 U/L (15-37) 02/16/20 07:00 ALT 37 U/L (13-61) 02/16/20 07:00 Alkaline Phosphatase 100 U/L (45-117) 02/16/20 07:00 Total Protein 6.2 g/dl (6.4-8.2) L 02/16/20 07:00 Albumin 3.4 g/dl (3.4-5.0) 02/16/20 07:00 Syphilis Serology Non-reactive (NONREACTIVE) 02/16/20 07:00 RPR Titer Cancelled 02/16/20 07:00 HIV Ag/Ab Combo Qual Negative (NEGATIVE) 02/16/20 07:00 lab noted Assessment: 02/18/20 09:48 alcohol withdrawal Plan: librium regiment
[2020-02-18] MEDS: SERTRALINE HCL 50 MG TABLET (FP) PO SCH (09:55)
[2020-02-18] MEDS: levETIRAcetam 500 MG TABLET (FP) PO SCH ×2 (09:55→22:02)
[2020-02-18] MEDS: DIVALPROEX SODIUM 500 MG TABLET E.C. PO SCH ×2 (09:55→22:02)
[2020-02-18] MEDS: hydrOXYzine PAMOATE 50 MG CAPSULE (FP) PO SCH ×4 (09:55→22:02)
[2020-02-18] MEDS: PRENATAL VITAMINS W/ FOLIC ACID TABLET (FP) PO SCH (09:55)
[2020-02-18] MEDS: NICOTINE 21 MG/24 HOURS TOPICAL PATCH TD SCH (09:56)
[2020-02-18] MEDS: NICOTINE POLACRILEX 2 MG GUM BUC PRN ×2 (09:57→22:03)
--- NOTE | 2020-02-18 12:21 | PN ---
[facility] Progress Note Note: Psychiatry Attending's note : Labs requested : Valproic acid + levetiracetam levels. Spoke to pharmacist ([facility]). At [phone]. Refills for medications : already available. No need for scripts from [facility].
[2020-02-18] MEDS: OLANZapine 10 MG TABLET PO SCH (22:02)
[2020-02-18] MEDS: THIAMINE HCL 100 MG TABLET (FP) PO SCH (22:02)
[2020-02-18] MEDS: MELATONIN 5 MG TABLETS PO SCH (22:03)
[2020-02-19] MEDS: NICOTINE POLACRILEX 2 MG GUM BUC PRN ×5 (05:42→22:05)
[2020-02-19] MEDS: chlordiazePOXIDE HCL 10 MG CAPSULE PO SCH ×2 (05:42→17:18)
[2020-02-19] MEDS: LEVOTHYROXINE NA 25 MCG TABLET (FP) PO SCH (06:22)
[2020-02-19] MEDS: SERTRALINE HCL 50 MG TABLET (FP) PO SCH (10:21)
[2020-02-19] MEDS: NICOTINE 21 MG/24 HOURS TOPICAL PATCH TD SCH (10:21)
[2020-02-19] MEDS: DIVALPROEX SODIUM 500 MG TABLET E.C. PO SCH ×2 (10:21→22:04)
[2020-02-19] MEDS: PRENATAL VITAMINS W/ FOLIC ACID TABLET (FP) PO SCH (10:21)
[2020-02-19] MEDS: levETIRAcetam 500 MG TABLET (FP) PO SCH ×2 (10:21→22:04)
[2020-02-19] MEDS: hydrOXYzine PAMOATE 50 MG CAPSULE (FP) PO SCH ×4 (10:40→22:04)
--- NOTE | 2020-02-19 12:03 | PN ---
[facility] CIWA - CIWA Score Nausea/Vomitin-No Nausea/No Vomiting Muscle Tremors: 1-None Visible, but [place] Anxiety: 1-Mildly Anxious Agitation: 1-Slight > Activity Paroxysmal Sweats: No Perspiration Orientation: 0-Oriented Tacttile Disturbances: 0-None Auditory Disturbances: 0-None Visual Disturbances: 0-None Headache: 0-None Present CIWA-Ar Total Score: 3 BHS Progress Note (SOAP) Subjective: alert,irritable,interrupted sleep Objective: 02/19/20 12:01 Vital Signs Temperature 96.5 F L 02/19/20 08:35 Pulse Rate 72 02/19/20 08:35 Respiratory Rate 18 02/19/20 08:35 Blood Pressure 92/63 02/19/20 08:35 O2 Sat by Pulse Oximetry (%) 96 02/19/20 06:09 Assessment: 02/19/20 12:03 withdrawal symptom Plan: continue detox,discharge in am
[2020-02-19] MEDS: THIAMINE HCL 100 MG TABLET (FP) PO SCH (22:04)
[2020-02-19] MEDS: OLANZapine 10 MG TABLET PO SCH (22:04)
[2020-02-19] MEDS: MELATONIN 5 MG TABLETS PO SCH (22:04)
[2020-02-20] MEDS ORDERED: chlordiazePOXIDE HCL 10 MG CAPSULE PO ONE (05:00)
[2020-02-20] MEDS: NICOTINE POLACRILEX 2 MG GUM BUC PRN (05:51)
[2020-02-20] MEDS: LEVOTHYROXINE NA 25 MCG TABLET (FP) PO SCH (06:32)
[2020-02-20 07:04] VITALS: BP 81/56; PULSE 64; TEMP 96.6
--- NOTE | 2020-02-20 08:54 | PN ---
[facility] CIWA - CIWA Score Nausea/Vomitin-No Nausea/No Vomiting Muscle Tremors: None Anxiety: 1-Mildly Anxious Agitation: 0-Normal Activity Paroxysmal Sweats: No Perspiration Orientation: 0-Oriented Tacttile Disturbances: 0-None Auditory Disturbances: 0-None Visual Disturbances: 0-None Headache: 0-None Present CIWA-Ar Total Score: 1 S Progress Note (SOAP) Subjective: alert,no complaint Objective: 02/20/20 08:53 Vital Signs Temperature 96.6 F L 02/20/20 05:40 Pulse Rate 64 02/20/20 05:40 Respiratory Rate 18 02/20/20 05:40 Blood Pressure 81/56 L 02/20/20 05:40 O2 Sat by Pulse Oximetry (%) 96 02/20/20 05:40 Assessment: 02/20/20 08:53 detox completed,no withdrawal symptom Plan: discharge today,follow up with after care program as arrangement
--- NOTE | 2020-02-20 08:55 | DS ---
[facility] Detox Discharge Summary Admission Date: 02/15/20 Discharge Date: 02/20/20 - History Present History: Alcohol Dependence, Cannabis Dependence Additional Comments: alert,oriented x 3 ambulation on the unit no abdominal pain no edema of legs stable for discharge follow up with after care program as arrangement follow up with psychiatrist follow up with medical provider for medical problem discharge in good condition,total time spending on discharge 35 mins Pertinent Past History: hypercholesterolemia bipolar disorder - Physical Exam Results Vital Signs: Vital Signs Temperature 96.6 F L 02/20/20 05:40 Pulse Rate 64 02/20/20 05:40 Respiratory Rate 18 02/20/20 05:40 Blood Pressure 81/56 L 02/20/20 05:40 O2 Sat by Pulse Oximetry (%) 96 02/20/20 05:40 Pertinent Admission Physical Exam Findings: withdrawal signs and symptom Laboratory Last Values WBC 7.1 K/mm3 (4.0-10.0) 02/16/20 07:00 RBC 4.29 M/mm3 (4.00-5.60) 02/16/20 07:00 Hgb 14.2 GM/dL (11.7-16.9) 02/16/20 07:00 Hct 41.4 % (35.4-49) 02/16/20 07:00 MCV 96.4 fl (80-96) H 02/16/20 07:00 MCH 33.0 pg (25.7-33.7) 02/16/20 07:00 MCHC 34.2 g/dl (32.0-35.9) 02/16/20 07:00 RDW 14.0 % (11.9-15.9) 02/16/20 07:00 Plt Count 214 K/MM3 (134-434) D 02/16/20 07:00 MPV 8.9 fl (7.5-11.1) 02/16/20 07:00 Sodium 139 mmol/L (136-145) 02/16/20 07:00 Potassium 3.5 mmol/L (3.5-5.1) 02/16/20 07:00 Chloride 103 mmol/L (98-107) 02/16/20 07:00 Carbon Dioxide 28 mmol/L (21-32) 02/16/20 07:00 Anion Gap 8 MMOL/L (8-16) 02/16/20 07:00 BUN 15.2 mg/dL (7-18) 02/16/20 07:00 Creatinine 0.9 mg/dL (0.55-1.3) 02/16/20 07:00 Est GFR (CKD-EPI)AfAm 123.39 02/16/20 07:00 Est GFR (CKD-EPI)NonAf 106.46 02/16/20 07:00 Random Glucose 95 mg/dL (74-106) 02/16/20 07:00 Calcium 8.5 mg/dL (8.5-10.1) 02/16/20 07:00 Total Bilirubin 0.4 mg/dL (0.2-1) 02/16/20 07:00 AST 26 U/L (15-37) 02/16/20 07:00 ALT 37 U/L (13-61) 02/16/20 07:00 Alkaline Phosphatase 100 U/L (45-117) 02/16/20 07:00 Total Protein 6.2 g/dl (6.4-8.2) L 02/16/20 07:00 Albumin 3.4 g/dl (3.4-5.0) 02/16/20 07:00 Valproic Acid 56.0 ug/mL (50-100) 02/18/20 12:55 Syphilis Serology Non-reactive (NONREACTIVE) 02/16/20 07:00 RPR Titer Cancelled 02/16/20 07:00 HIV Ag/Ab Combo Qual Negative (NEGATIVE) 02/16/20 07:00 - Treatment Hospital Course: Detox Protocol Followed, Detoxed Safely, Responded well, Discharged Condition Good Patient has Accepted a Rehab Referral to: declined - Medication Discharge Medications: Ambulatory Orders Simvastatin 20 mg PO HS 07/24/19 Famotidine 20 mg PO DAILY 09/14/19 Folic Acid 1 mg PO DAILY 09/14/19 Multivitamins [Tab-A-Vit -] 1 tab PO DAILY 09/14/19 Olanzapine [Olanzapine Odt] 5 mg PO HS 09/14/19 Sertraline HCl [Zoloft] 50 mg PO DAILY 09/14/19 levETIRAcetam [Keppra -] 500 mg PO BID 09/14/19 Clotrimazole/Betamet Diprop [Lotrisone -] 1 applic TP BID #1 tube 09/19/19 Divalproex [Depakote -] 500 mg PO TID #90 tablet.ec 09/19/19 Gabapentin [Neurontin -] 600 mg PO TID #90 capsule 09/19/19 Levothyroxine Sodium [Synthroid] 50 mcg PO DAILY #30 tablet 09/19/19 Escitalopram Oxalate [Lexapro -] 20 mg PO DAILY 02/15/20 - Diagnosis (1) Uncomplicated alcohol withdrawal Status: Acute (2) Asthma Status: Chronic Qualifiers: Asthma severity: mild Asthma persistence: intermittent Asthma complication type: uncomplicated Qualified Code(s): J45.20 - Mild intermittent asthma, uncomplicated (3) Bipolar disorder Status: Chronic (4) Cannabis abuse Status: Chronic (5) History of bipolar disorder Status: Chronic (6) Seizure disorder Status: Chronic (7) Hypercholesterolemia Status: Chronic - AMA Did Patient Leave Against Medical Advice: No
--- NOTE | 2020-02-20 09:14 | PN ---
[facility] Progress Note Note: addendum patient has history of non compliance with medication he is on synthroid 88 mcg po daily,has medication refilled at [facility] and simvastatin 20 mgs po hs at the pharmacy waiting for him,advise patient to go to milk pickup driver medication and encourage the in compliance issue with taking medication,patient understood
== END 2020-02-20 08:38 | disposition home or self-care (01) | DRG 775 ==
LOC: YASAS 09:29 → Y3N 11:02
PROVIDERS: ADMIT Allergy & Immunology; ATTEND Allergy & Immunology
PROC: HZ2ZZZZ Detoxification Services for Substance Abuse Treatment (ICD-10-PCS; principal; 2020-02-15)
DX: F10.230 Alcohol dependence with withdrawal, uncomplicated (principal); F12.20 Cannabis dependence, uncomplicated; F17.210 Nicotine dependence, cigarettes, uncomplicated; F19.24 Other psychoactive substance dependence with psychoactive substance-induced mood disorder; F31.9 Bipolar disorder, unspecified; F40.01 Agoraphobia with panic disorder; F43.10 Post-traumatic stress disorder, unspecified; E87.5 Hyperkalemia; J45.20 Mild intermittent asthma, uncomplicated; J44.9 Chronic obstructive pulmonary disease, unspecified; G40.909 Epilepsy, unspecified, not intractable, without status epilepticus; E78.00 Pure hypercholesterolemia, unspecified; K21.9 Gastro-esophageal reflux disease without esophagitis; Z56.0 Unemployment, unspecified; Z59.0 Homelessness; Z91.19 Patient's noncompliance with other medical treatment and regimen
CPT/HCPCS: 36415; 80053; 80164; 80177; 85027; 87389; Q0162

== ENCOUNTER 2020-07-13 12:00 | Inpatient (IN) | payer OTHER ==
--- NOTE | 2020-07-13 12:52 | BHS.RME ---
Substance Use & Tx History - Substance Use History Alcohol Substance amount: 1/2 gallon vodka Frequency of use: Daily Substance route: Oral Date of Last Use: 07/12/20 Nicotine Substance amount: 2-3 ciggs on top of nicotine 4mg Frequency of use: Daily Substance route: Smoking Date of Last Use: 07/13/20 - Last Treatment Date of last treatment: 02/14-02/20/20 Treatment type: Substance Use Disorder (MARILOU) Where was last treatment: Detox Physical/Psych/Mental Status - Behavior General Behavior: Increased activity (restlessness, agitation) Eye Contact: Normal - Cooperativeness Cooperativeness: Cooperative - Thinking Thought Processes: Tight, Logical, Goal Directed - Physical Health Problems Is patient presently having any pain?: No Does patient presently have any injuries (include location): No Does patient currently have a fever: No Is patient : No CIWA Nausea/Vomitin Muscle Tremors: 3 Anxiety: 3 Agitation: 4-Moderately Restless Paroxysmal Sweats: 3 Orientation: 0-Oriented Tacttile Disturbances: 2-Mild Itch/Numbness/Burn Auditory Disturbances: 0-None Visual Disturbances: 2-Mild Sensitivity Headache: 1-Very Mild CIWA-Ar Total Score: 23
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
[2020-07-13] MEDS ORDERED: BISMUTH SUBSALICYLATE 524 MG/30 ML UD PO PRN (13:13)
[2020-07-13] MEDS ORDERED: chlordiazePOXIDE HCL 25 MG CAPSULE PO PRN (13:13)
[2020-07-13] MEDS ORDERED: MENTHOL/PHENOL 1 EACH UD MM PRN (13:13)
[2020-07-13] MEDS ORDERED: MAG HYDROX/AL HYDROX/SIMETH 30 ML UNIT-DOSE CUP PO PRN (13:13)
[2020-07-13] MEDS ORDERED: MAGNESIUM HYDROX 2400MG/30ML ORAL SUSPENSION 30 ML CUP PO PRN (13:13)
[2020-07-13] MEDS ORDERED: IBUPROFEN 400 MG TABLET (FP) PO PRN (13:13)
[2020-07-13] MEDS ORDERED: MAGNESIUM CITRATE 300 ML BOTTLE PO PRN (13:13)
[2020-07-13] MEDS ORDERED: ACETAMINOPHEN 325 MG TABLET (FP) PO PRN ×2 (13:13)
[2020-07-13] MEDS ORDERED: METHOCARBAMOL 500 MG TABLET PO PRN (13:13)
[2020-07-13] MEDS ORDERED: METHADONE HCL 10 MG TABLET PO SCH (13:30)
[2020-07-13 13:52] VITALS: BMI 22.8
[2020-07-13] MEDS ORDERED: ONDANSETRON *ODT* 4 MG TABLET SL ONE ×2 (14:00→18:30)
[2020-07-13] MEDS: NICOTINE 7 MG/24 HOURS TOPICAL PATCH TD SCH (14:54)
[2020-07-13] MEDS: PRENATAL VITAMINS W/ FOLIC ACID TABLET (FP) PO SCH (14:54)
[2020-07-13] MEDS: hydrOXYzine PAMOATE 25 MG CAPSULE (FP) PO SCH ×3 (14:57→22:26)
[2020-07-13 17:20] LABS: HEMATOCRIT 45.4 % (35.4-49); HEMOGLOBIN 15.6 GM/dL (11.7-16.9); MCH 32.1 pg (25.7-33.7); MCHC 34.3 g/dl (32.0-35.9); MEAN CELL VOLUME 93.4 fl (80-96); PLATELET COUNT 268 K/MM3 (134-434); RBC 4.86 M/mm3 (4.00-5.60); RDW 14.6 % (11.9-15.9)
[2020-07-13 17:27] LABS: ALBUMIN 3.8 g/dl (3.4-5.0); BILIRUBIN,TOTAL 0.4 mg/dL (0.2-1); BLOOD UREA NITROGEN 7.2 mg/dL (7-18); CALCIUM 8.6 mg/dL (8.5-10.1); CREATININE 0.8 mg/dL (0.55-1.3); POTASSIUM 3.8 mmol/L (3.5-5.1); TOT PROT 7.5 g/dl (6.4-8.2)
[2020-07-13] MEDS: chlordiazePOXIDE HCL 25 MG CAPSULE PO SCH ×2 (17:53→22:26)
[2020-07-13] MEDS ORDERED: ONDANSETRON 4 MG TABLET PO ONE (18:15)
--- NOTE | 2020-07-13 18:19 | PN ---
S Progress Note Note: Patient complains of nausea. Denies vomiting at this time. Vital Signs Temperature 98.8 F 07/13/20 15:09 Pulse Rate 71 07/13/20 15:09 Respiratory Rate 18 07/13/20 15:09 Blood Pressure 110/80 07/13/20 15:09 O2 Sat by Pulse Oximetry (%) 95 07/13/20 15:09 Action: Ondansetron (Zofran Odt) 4mg SL ordered
[2020-07-13] MEDS: SULFAMETHOXAZOLE/TRIMETHOPRIM 800MG/160MG D.S. TABLET PO SCH (22:26)
[2020-07-13] MEDS: levETIRAcetam 500 MG TABLET (FP) PO SCH (22:26)
[2020-07-13] MEDS: THIAMINE HCL 100 MG TABLET (FP) PO SCH (22:26)
[2020-07-13] MEDS: ATORVASTATIN CA 10 MG TABLET (FP) PO SCH (22:26)
[2020-07-13] MEDS: MELATONIN 5 MG TABLETS PO SCH (22:27)
[2020-07-13] MEDS: CLOTRIMAZOLE/BETAMET DIPROP 15 GM TUBE TP SCH (22:30)
[2020-07-14] MEDS: chlordiazePOXIDE HCL 25 MG CAPSULE PO SCH ×4 (05:56→22:18)
[2020-07-14] MEDS: hydrOXYzine PAMOATE 25 MG CAPSULE (FP) PO SCH (05:56)
[2020-07-14] MEDS: LEVOTHYROXINE NA 25 MCG TABLET (FP) PO SCH (07:21)
[2020-07-14] MEDS ORDERED: TRIMETHOBENZAMIDE HCL 300 MG CAPSULE PO PRN (09:57)
[2020-07-14] MEDS ORDERED: hydrOXYzine PAMOATE 25 MG CAPSULE (FP) PO PRN (09:57)
--- NOTE | 2020-07-14 09:59 | PN ---
S CIWA - CIWA Score Nausea/Vomitin-Mild Nausea/No Vomiting Muscle Tremors: 3 Anxiety: 3 Agitation: 3 Paroxysmal Sweats: 3 Orientation: 0-Oriented Tacttile Disturbances: 0-None Auditory Disturbances: 0-None Visual Disturbances: 0-None Headache: 0-None Present CIWA-Ar Total Score: 13 BHS Progress Note (SOAP) Subjective: chills sweats shakes nausea interrupted sleep Objective: 07/14/20 09:59 Vital Signs Temperature 97.3 F L 07/14/20 08:51 Pulse Rate 73 07/14/20 08:51 Respiratory Rate 18 07/14/20 08:51 Blood Pressure 114/76 07/14/20 08:51 O2 Sat by Pulse Oximetry (%) 98 07/14/20 06:10 Laboratory Tests 07/13/20 07/13/20 07/13/20 13:20 13:20 13:20 WBC 8.0 RBC 4.86 Hgb 15.6 Hct 45.4 MCV 93.4 MCH 32.1 MCHC 34.3 RDW 14.6 Plt Count 268 D MPV 8.0 D Sodium 144 Potassium 3.8 Chloride 110 H Carbon Dioxide 23 Anion Gap 11 BUN 7.2 Creatinine 0.8 Est GFR (CKD-EPI)AfAm 128.60 Est GFR (CKD-EPI)NonAf 110.96 Random Glucose 98 Calcium 8.6 Total Bilirubin 0.4 AST 76 H ALT 90 H Alkaline Phosphatase 119 H Total Protein 7.5 Albumin 3.8 Syphilis Serology Non-reactive labs noted liver enzymes slightly elevated; encourage fluids aaox3 ambulating no acute distress Assessment: 07/14/20 09:59 withdrawals Plan: continue detox tigan po prn increase fluids
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
[2020-07-14] MEDS: CLOTRIMAZOLE/BETAMET DIPROP 15 GM TUBE TP SCH ×2 (10:38→22:19)
[2020-07-14] MEDS: PRENATAL VITAMINS W/ FOLIC ACID TABLET (FP) PO SCH (10:38)
[2020-07-14] MEDS: levETIRAcetam 500 MG TABLET (FP) PO SCH ×2 (10:38→22:18)
[2020-07-14] MEDS: NICOTINE 7 MG/24 HOURS TOPICAL PATCH TD SCH (10:38)
[2020-07-14] MEDS: SULFAMETHOXAZOLE/TRIMETHOPRIM 800MG/160MG D.S. TABLET PO SCH ×2 (10:38→22:18)
[2020-07-14] MEDS: SERTRALINE HCL 50 MG TABLET (FP) PO SCH (12:32)
[2020-07-14] MEDS: DIVALPROEX SODIUM 500 MG TABLET E.C. PO SCH ×2 (12:32→22:18)
[2020-07-14] MEDS ORDERED: TRIMETHOBENZAMIDE HCL 200MG/2ML INJ IM ONE (16:53)
--- NOTE | 2020-07-14 16:55 | PN ---
BHS Progress Note Note: called by nursing for pt w/ c/o nausea, not tolerating p.o. meds . Pt denies other c/o except nausea . Vital Signs - 24 hr 07/13/20 07/13/20 07/14/20 17:46 21:47 06:10 Temperature 97.0 F L 97.8 F 98.2 F Pulse Rate 81 74 101 H Respiratory 17 18 18 Rate Blood Pressure 135/97 120/88 121/77 O2 Sat by Pulse 97 98 Oximetry (%) 07/14/20 07/14/20 08:51 13:20 Temperature 97.3 F L 96.8 F L Pulse Rate 73 72 Respiratory 18 18 Rate Blood Pressure 114/76 103/78 O2 Sat by Pulse 95 Oximetry (%) P : tigan im once .
[2020-07-14] MEDS: ATORVASTATIN CA 10 MG TABLET (FP) PO SCH (22:19)
[2020-07-14] MEDS: MELATONIN 5 MG TABLETS PO SCH (22:19)
[2020-07-14] MEDS: OLANZapine 10 MG TABLET PO SCH (22:19)
[2020-07-14] MEDS: THIAMINE HCL 100 MG TABLET (FP) PO SCH (22:19)
[2020-07-15] MEDS: chlordiazePOXIDE HCL 25 MG CAPSULE PO SCH ×4 (05:30→22:00)
[2020-07-15] MEDS: LEVOTHYROXINE NA 25 MCG TABLET (FP) PO SCH (07:24)
[2020-07-15] MEDS ORDERED: levETIRAcetam 250 MG TABLET PO ONE (08:44)
--- NOTE | 2020-07-15 09:54 | PN ---
S CIWA - CIWA Score Nausea/Vomitin-No Nausea/No Vomiting Muscle Tremors: 3 Anxiety: 2 Agitation: 2 Paroxysmal Sweats: 1-Minimal Palms Moist Orientation: 0-Oriented Tacttile Disturbances: 0-None Auditory Disturbances: 0-None Visual Disturbances: 0-None Headache: 0-None Present CIWA-Ar Total Score: 8 BHS Progress Note (SOAP) Subjective: sweats shakes interrupted sleep Objective: 07/15/20 09:54 Vital Signs Temperature 97.5 F L 07/15/20 05:28 Pulse Rate 88 07/15/20 05:28 Respiratory Rate 18 07/15/20 05:28 Blood Pressure 116/85 07/15/20 05:28 O2 Sat by Pulse Oximetry (%) 97 07/15/20 05:28 Laboratory Tests 07/13/20 07/13/20 07/13/20 13:20 13:20 13:20 WBC 8.0 RBC 4.86 Hgb 15.6 Hct 45.4 MCV 93.4 MCH 32.1 MCHC 34.3 RDW 14.6 Plt Count 268 D MPV 8.0 D Sodium 144 Potassium 3.8 Chloride 110 H Carbon Dioxide 23 Anion Gap 11 BUN 7.2 Creatinine 0.8 Est GFR (CKD-EPI)AfAm 128.60 Est GFR (CKD-EPI)NonAf 110.96 Random Glucose 98 Calcium 8.6 Total Bilirubin 0.4 AST 76 H ALT 90 H Alkaline Phosphatase 119 H Total Protein 7.5 Albumin 3.8 Syphilis Serology Non-reactive COVID-19 ([facility]) 07/13/20 15:00 WBC RBC Hgb Hct MCV MCH MCHC RDW Plt Count MPV Sodium Potassium Chloride Carbon Dioxide Anion Gap BUN Creatinine Est GFR (CKD-EPI)AfAm Est GFR (CKD-EPI)NonAf Random Glucose Calcium Total Bilirubin AST ALT Alkaline Phosphatase Total Protein Albumin Syphilis Serology COVID-19 ([facility]) Not detected labs noted aaox3 ambulating no acute distress Assessment: 07/15/20 09:54 withdrawals Plan: continue detox
[2020-07-15] MEDS: NICOTINE 7 MG/24 HOURS TOPICAL PATCH TD SCH (10:52)
[2020-07-15] MEDS: levETIRAcetam 500 MG TABLET (FP) PO SCH ×2 (10:53→21:48)
[2020-07-15] MEDS: SULFAMETHOXAZOLE/TRIMETHOPRIM 800MG/160MG D.S. TABLET PO SCH ×2 (10:53→21:48)
[2020-07-15] MEDS: DIVALPROEX SODIUM 500 MG TABLET E.C. PO SCH ×2 (10:53→21:48)
[2020-07-15] MEDS: PRENATAL VITAMINS W/ FOLIC ACID TABLET (FP) PO SCH (10:54)
[2020-07-15] MEDS: SERTRALINE HCL 50 MG TABLET (FP) PO SCH (10:54)
[2020-07-15] MEDS: CLOTRIMAZOLE/BETAMET DIPROP 15 GM TUBE TP SCH ×2 (10:55→21:50)
[2020-07-15] MEDS: OLANZapine 10 MG TABLET PO SCH (21:48)
[2020-07-15] MEDS: ATORVASTATIN CA 10 MG TABLET (FP) PO SCH (21:48)
[2020-07-15] MEDS: MELATONIN 5 MG TABLETS PO SCH (21:52)
[2020-07-15] MEDS: THIAMINE HCL 100 MG TABLET (FP) PO SCH (21:53)
[2020-07-16] MEDS ORDERED: chlordiazePOXIDE HCL 10 MG CAPSULE PO PRN
[2020-07-16] MEDS: chlordiazePOXIDE HCL 10 MG CAPSULE PO SCH ×4 (06:09→22:03)
[2020-07-16] MEDS: LEVOTHYROXINE NA 25 MCG TABLET (FP) PO SCH (07:38)
[2020-07-16] MEDS: DIVALPROEX SODIUM 500 MG TABLET E.C. PO SCH ×2 (10:54→22:03)
[2020-07-16] MEDS: SULFAMETHOXAZOLE/TRIMETHOPRIM 800MG/160MG D.S. TABLET PO SCH ×2 (10:54→22:03)
[2020-07-16] MEDS: PRENATAL VITAMINS W/ FOLIC ACID TABLET (FP) PO SCH (10:54)
[2020-07-16] MEDS: NICOTINE 7 MG/24 HOURS TOPICAL PATCH TD SCH (10:55)
[2020-07-16] MEDS: levETIRAcetam 500 MG TABLET (FP) PO SCH ×2 (10:55→22:03)
[2020-07-16] MEDS: CLOTRIMAZOLE/BETAMET DIPROP 15 GM TUBE TP SCH ×2 (10:55→22:03)
[2020-07-16] MEDS: SERTRALINE HCL 50 MG TABLET (FP) PO SCH (10:55)
[2020-07-16] MEDS: NICOTINE POLACRILEX 2 MG GUM BUC PRN ×2 (10:56→19:06)
--- NOTE | 2020-07-16 11:49 | PN ---
S CIWA - CIWA Score Muscle Tremors: 2 Anxiety: 1-Mildly Anxious Agitation: 1-Slight > Activity Paroxysmal Sweats: 1-Minimal Palms Moist Orientation: 1-Uncertain about Date Tacttile Disturbances: 0-None Auditory Disturbances: 0-None Visual Disturbances: 0-None Headache: 0-None Present BHS Progress Note (SOAP) Subjective: pt admitted for alcohol detox. Pt states he has never been in a methadone program- O: Vital Signs - 24 hr 07/15/20 07/15/20 07/15/20 12:55 17:04 20:27 Temperature 97.8 F 97.8 F 97.3 F L Pulse Rate 76 99 H 78 Respiratory 18 18 18 Rate Blood Pressure 110/72 113/74 105/71 O2 Sat by Pulse 95 98 Oximetry (%) 07/16/20 06:06 Temperature 97.1 F L Pulse Rate 73 Respiratory 18 Rate Blood Pressure 114/66 O2 Sat by Pulse 97 Oximetry (%) Laboratory Tests 07/13/20 07/13/20 07/13/20 13:20 13:20 13:20 WBC 8.0 RBC 4.86 Hgb 15.6 Hct 45.4 MCV 93.4 MCH 32.1 MCHC 34.3 RDW 14.6 Plt Count 268 D MPV 8.0 D Sodium 144 Potassium 3.8 Chloride 110 H Carbon Dioxide 23 Anion Gap 11 BUN 7.2 Creatinine 0.8 Est GFR (CKD-EPI)AfAm 128.60 Est GFR (CKD-EPI)NonAf 110.96 Random Glucose 98 Calcium 8.6 Total Bilirubin 0.4 AST 76 H ALT 90 H Alkaline Phosphatase 119 H Total Protein 7.5 Albumin 3.8 Syphilis Serology Non-reactive COVID-19 ([facility]) 07/13/20 15:00 WBC RBC Hgb Hct MCV MCH MCHC RDW Plt Count MPV Sodium Potassium Chloride Carbon Dioxide Anion Gap BUN Creatinine Est GFR (CKD-EPI)AfAm Est GFR (CKD-EPI)NonAf Random Glucose Calcium Total Bilirubin AST ALT Alkaline Phosphatase Total Protein Albumin Syphilis Serology COVID-19 ([facility]) Not detected increased lliver enzymes, monitor a/p: AUD- continue detox
[2020-07-16] MEDS: ATORVASTATIN CA 10 MG TABLET (FP) PO SCH (22:02)
[2020-07-16] MEDS: THIAMINE HCL 100 MG TABLET (FP) PO SCH (22:03)
[2020-07-16] MEDS: MELATONIN 5 MG TABLETS PO SCH (22:03)
[2020-07-16] MEDS: OLANZapine 10 MG TABLET PO SCH (22:05)
[2020-07-17] MEDS: chlordiazePOXIDE HCL 10 MG CAPSULE PO SCH ×2 (06:13→17:31)
[2020-07-17] MEDS: LEVOTHYROXINE NA 25 MCG TABLET (FP) PO SCH (06:13)
[2020-07-17] MEDS: PRENATAL VITAMINS W/ FOLIC ACID TABLET (FP) PO SCH (10:49)
[2020-07-17] MEDS: levETIRAcetam 500 MG TABLET (FP) PO SCH ×2 (10:49→21:58)
[2020-07-17] MEDS: NICOTINE 7 MG/24 HOURS TOPICAL PATCH TD SCH (10:49)
[2020-07-17] MEDS: SULFAMETHOXAZOLE/TRIMETHOPRIM 800MG/160MG D.S. TABLET PO SCH ×2 (10:49→21:57)
[2020-07-17] MEDS: DIVALPROEX SODIUM 500 MG TABLET E.C. PO SCH ×2 (10:50→21:57)
[2020-07-17] MEDS: SERTRALINE HCL 50 MG TABLET (FP) PO SCH (10:50)
[2020-07-17] MEDS: CLOTRIMAZOLE/BETAMET DIPROP 15 GM TUBE TP SCH ×2 (11:10→21:59)
--- NOTE | 2020-07-17 15:29 | PN ---
[facility] CIWA - CIWA Score Nausea/Vomitin-No Nausea/No Vomiting Muscle Tremors: None Anxiety: 2 Agitation: 1-Slight > Activity Paroxysmal Sweats: 1-Minimal Palms Moist Orientation: 0-Oriented Tacttile Disturbances: 0-None Auditory Disturbances: 0-None Visual Disturbances: 0-None Headache: 0-None Present CIWA-Ar Total Score: 4 BHS Progress Note (SOAP) Subjective: Complaints of mild anxiety and sweats. Objective: 07/17/20 15:28 Vital Signs 07/17/20 09:22 Temperature 97.0 F L Pulse Rate 79 Respiratory 18 Rate Blood Pressure 110/76 O2 Sat by Pulse 96 Oximetry (%) Laboratory Last Values WBC 8.0 K/mm3 (4.0-10.0) 07/13/20 13:20 RBC 4.86 M/mm3 (4.00-5.60) 07/13/20 13:20 Hgb 15.6 GM/dL (11.7-16.9) 07/13/20 13:20 Hct 45.4 % (35.4-49) 07/13/20 13:20 MCV 93.4 fl (80-96) 07/13/20 13:20 MCH 32.1 pg (25.7-33.7) 07/13/20 13:20 MCHC 34.3 g/dl (32.0-35.9) 07/13/20 13:20 RDW 14.6 % (11.9-15.9) 07/13/20 13:20 Plt Count 268 K/MM3 (134-434) D 07/13/20 13:20 MPV 8.0 fl (7.5-11.1) D 07/13/20 13:20 Sodium 144 mmol/L (136-145) 07/13/20 13:20 Potassium 3.8 mmol/L (3.5-5.1) 07/13/20 13:20 Chloride 110 mmol/L (98-107) H 07/13/20 13:20 Carbon Dioxide 23 mmol/L (21-32) 07/13/20 13:20 Anion Gap 11 MMOL/L (8-16) 07/13/20 13:20 BUN 7.2 mg/dL (7-18) 07/13/20 13:20 Creatinine 0.8 mg/dL (0.55-1.3) 07/13/20 13:20 Est GFR (CKD-EPI)AfAm 128.60 07/13/20 13:20 Est GFR (CKD-EPI)NonAf 110.96 07/13/20 13:20 Random Glucose 98 mg/dL (74-106) 07/13/20 13:20 Calcium 8.6 mg/dL (8.5-10.1) 07/13/20 13:20 Total Bilirubin 0.4 mg/dL (0.2-1) 07/13/20 13:20 AST 76 U/L (15-37) H 07/13/20 13:20 ALT 90 U/L (13-61) H 07/13/20 13:20 Alkaline Phosphatase 119 U/L (45-117) H 07/13/20 13:20 Total Protein 7.5 g/dl (6.4-8.2) 07/13/20 13:20 Albumin 3.8 g/dl (3.4-5.0) 07/13/20 13:20 Syphilis Serology Non-reactive (NONREACTIVE) 07/13/20 13:20 COVID-19 ([facility]) Not detected (Not Detected) 07/13/20 15:00 labs noted. Assessment: 07/17/20 15:28 Alert and oriented x 3, in no acute respiratory distress. Full ROM, ambulating in the unit without assistance. Very mild withdrawal symptoms. For discharge in AM Plan: Continue detox protocol. Discharge in AM.
[2020-07-17] MEDS: ATORVASTATIN CA 10 MG TABLET (FP) PO SCH (21:57)
[2020-07-17] MEDS: OLANZapine 10 MG TABLET PO SCH (21:57)
[2020-07-17] MEDS: THIAMINE HCL 100 MG TABLET (FP) PO SCH (21:57)
[2020-07-17] MEDS: MELATONIN 5 MG TABLETS PO SCH (21:58)
[2020-07-18] MEDS ORDERED: chlordiazePOXIDE HCL 10 MG CAPSULE PO ONE (05:00)
[2020-07-18 06:14] VITALS: TEMP 97.3
[2020-07-18] MEDS: LEVOTHYROXINE NA 25 MCG TABLET (FP) PO SCH (07:02)
[2020-07-18 09:55] VITALS: BP 105/72; PULSE 77
[2020-07-18] MEDS: CLOTRIMAZOLE/BETAMET DIPROP 15 GM TUBE TP SCH (10:13)
[2020-07-18] MEDS: SULFAMETHOXAZOLE/TRIMETHOPRIM 800MG/160MG D.S. TABLET PO SCH (10:13)
[2020-07-18] MEDS: NICOTINE 7 MG/24 HOURS TOPICAL PATCH TD SCH (10:13)
[2020-07-18] MEDS: PRENATAL VITAMINS W/ FOLIC ACID TABLET (FP) PO SCH (10:13)
[2020-07-18] MEDS: SERTRALINE HCL 50 MG TABLET (FP) PO SCH (10:13)
[2020-07-18] MEDS: DIVALPROEX SODIUM 500 MG TABLET E.C. PO SCH (10:13)
[2020-07-18] MEDS: levETIRAcetam 500 MG TABLET (FP) PO SCH (10:13)
--- NOTE | 2020-07-18 10:59 | DS ---
[facility] Detox Discharge Summary Admission Date: 07/13/20 Discharge Date: 07/18/20 - History Present History: Alcohol Dependence, Cannabis Dependence, Sedative Dependence Additional Comments: Patient was seen and examined at bedside. Alert and oriented x 3, in no acute respiratory distress. Skin warm to touch. Full ROM, ambulatory without assistance. Detox protocol completed, stable for discharge today. Pertinent Past History: History of pancreatitis,chron's disease, HLD, seizures, alcohol, nicotine, sedative and Methamphetamine use disorder - Physical Exam Results Vital Signs: Vital Signs Temperature 97.3 F L 07/18/20 08:46 Pulse Rate 77 07/18/20 08:46 Respiratory Rate 20 07/18/20 08:46 Blood Pressure 105/72 07/18/20 08:46 O2 Sat by Pulse Oximetry (%) 96 07/18/20 05:19 Vital Signs 07/18/20 07/18/20 05:19 08:46 Temperature 97.3 F L 97.3 F L Pulse Rate 75 77 Respiratory 16 20 Rate Blood Pressure 102/68 105/72 O2 Sat by Pulse 96 Oximetry (%) Laboratory Last Values WBC 8.0 K/mm3 (4.0-10.0) 07/13/20 13:20 RBC 4.86 M/mm3 (4.00-5.60) 07/13/20 13:20 Hgb 15.6 GM/dL (11.7-16.9) 07/13/20 13:20 Hct 45.4 % (35.4-49) 07/13/20 13:20 MCV 93.4 fl (80-96) 07/13/20 13:20 MCH 32.1 pg (25.7-33.7) 07/13/20 13:20 MCHC 34.3 g/dl (32.0-35.9) 07/13/20 13:20 RDW 14.6 % (11.9-15.9) 07/13/20 13:20 Plt Count 268 K/MM3 (134-434) D 07/13/20 13:20 MPV 8.0 fl (7.5-11.1) D 07/13/20 13:20 Sodium 144 mmol/L (136-145) 07/13/20 13:20 Potassium 3.8 mmol/L (3.5-5.1) 07/13/20 13:20 Chloride 110 mmol/L (98-107) H 07/13/20 13:20 Carbon Dioxide 23 mmol/L (21-32) 07/13/20 13:20 Anion Gap 11 MMOL/L (8-16) 07/13/20 13:20 BUN 7.2 mg/dL (7-18) 07/13/20 13:20 Creatinine 0.8 mg/dL (0.55-1.3) 07/13/20 13:20 Est GFR (CKD-EPI)AfAm 128.60 07/13/20 13:20 Est GFR (CKD-EPI)NonAf 110.96 07/13/20 13:20 Random Glucose 98 mg/dL (74-106) 07/13/20 13:20 Calcium 8.6 mg/dL (8.5-10.1) 07/13/20 13:20 Total Bilirubin 0.4 mg/dL (0.2-1) 07/13/20 13:20 AST 76 U/L (15-37) H 07/13/20 13:20 ALT 90 U/L (13-61) H 07/13/20 13:20 Alkaline Phosphatase 119 U/L (45-117) H 07/13/20 13:20 Total Protein 7.5 g/dl (6.4-8.2) 07/13/20 13:20 Albumin 3.8 g/dl (3.4-5.0) 07/13/20 13:20 Syphilis Serology Non-reactive (NONREACTIVE) 07/13/20 13:20 COVID-19 ([facility]) Not detected (Not Detected) 07/13/20 15:00 Labs noted. Pertinent Admission Physical Exam Findings: Withdrawal symptoms. - Treatment Hospital Course: Detox Protocol Followed, Detoxed Safely, Responded well, Discharged Condition Good - Medication Discharge Medications: Ambulatory Orders Simvastatin 20 mg PO HS 07/24/19 Famotidine 20 mg PO DAILY 09/14/19 Folic Acid 1 mg PO DAILY 09/14/19 Multivitamins [Tab-A-Vit -] 1 tab PO DAILY 09/14/19 Olanzapine [Olanzapine Odt] 10 mg PO HS 09/14/19 Sertraline HCl [Zoloft] 50 mg PO DAILY 09/14/19 levETIRAcetam [Keppra -] 750 mg PO BID 09/14/19 Gabapentin [Neurontin -] 600 mg PO TID #90 capsule 09/19/19 Levothyroxine Sodium [Synthroid] 50 mcg PO DAILY #30 tablet 09/19/19 Escitalopram Oxalate [Lexapro -] 20 mg PO DAILY 02/15/20 Divalproex [Depakote -] 1,000 mg PO HS 07/13/20 Divalproex [Depakote -] 500 mg PO DAILY 07/13/20 - Diagnosis (1) Cannabis abuse Current Visit: Yes Status: Chronic (2) Uncomplicated alcohol withdrawal Current Visit: Yes Status: Acute (3) Alcohol dependence Current Visit: Yes Status: Chronic Qualifiers: Substance use status: uncomplicated Qualified Code(s): F10.20 - Alcohol dependence, uncomplicated (4) Seizure disorder Current Visit: Yes Status: Chronic (5) Hypercholesterolemia Current Visit: No Status: Chronic (6) Hyperthyroidism Current Visit: No Status: Chronic (7) Nicotine dependence Current Visit: No Status: Chronic Qualifiers: Nicotine product type: cigarettes Substance use status: uncomplicated Qualified Code(s): F17.210 - Nicotine dependence, cigarettes, uncomplicated - AMA Did Patient Leave Against Medical Advice: No
== END 2020-07-18 10:30 | disposition home or self-care (01) | DRG 773 ==
LOC: YASAS 12:00 → Y6N 13:45
PROVIDERS: ADMIT Allergy & Immunology; ATTEND Allergy & Immunology
PROC: HZ2ZZZZ Detoxification Services for Substance Abuse Treatment (ICD-10-PCS; principal; 2020-07-13)
DX: F10.230 Alcohol dependence with withdrawal, uncomplicated (principal); F11.20 Opioid dependence, uncomplicated; F13.20 Sedative, hypnotic or anxiolytic dependence, uncomplicated; F12.20 Cannabis dependence, uncomplicated; F15.10 Other stimulant abuse, uncomplicated; F17.210 Nicotine dependence, cigarettes, uncomplicated; F10.280 Alcohol dependence with alcohol-induced anxiety disorder; F10.282 Alcohol dependence with alcohol-induced sleep disorder; F19.24 Other psychoactive substance dependence with psychoactive substance-induced mood disorder; F19.282 Other psychoactive substance dependence with psychoactive substance-induced sleep disorder; F31.9 Bipolar disorder, unspecified; F43.10 Post-traumatic stress disorder, unspecified; E05.90 Thyrotoxicosis, unspecified without thyrotoxic crisis or storm; E78.00 Pure hypercholesterolemia, unspecified; G40.909 Epilepsy, unspecified, not intractable, without status epilepticus; G47.00 Insomnia, unspecified; J45.20 Mild intermittent asthma, uncomplicated; J42 Unspecified chronic bronchitis; K21.9 Gastro-esophageal reflux disease without esophagitis; L03.113 Cellulitis of right upper limb; R74.8 Abnormal levels of other serum enzymes; Z87.19 Personal history of other diseases of the digestive system; Z91.19 Patient's noncompliance with other medical treatment and regimen; Z56.0 Unemployment, unspecified; Z59.0 Homelessness
CPT/HCPCS: 36415; 80053; 85027; 86780; Q0162; U0003

== ENCOUNTER 2020-09-04 21:17 | Inpatient (IN) | payer OTHER ==
--- OUTSIDE RECORDS SUMMARY | 2020-09-04 21:21 | XMS ---
:1980 Author Organization [facility] Support Name Relationship Address Phone LUKE AUNT [address] [place] [address] [address] [place] [address] UE Unavailable Unavailable Unavailable [facility]ADI FRIEND - [address] [place] [address] [place] [address] Re-disclosure Warning The records that you are about to access may contain information from federally- assisted alcohol or drug abuse programs. If such information is present, then the following federally mandated warning applies: This information has been disclosed to you from records protected by federal confidentiality rules (42 CFR part 2). The federal rules prohibit you from making any further disclosure of this information unless further disclosure is expressly permitted by the written consent of the person to whom it pertains or as otherwise permitted by 42 CFR part 2. A general authorization for the release of medical or other information is NOT sufficient for this purpose. The Federal rules restrict any use of the information to criminally investigate or prosecute any alcohol or drug abuse patient.The records that you are about to access may contain highly sensitive health information, the redisclosure of which is protected by Article 27-F of the [facility] Public Health law. If you continue you may haveaccess to information: Regarding HIV / AIDS; Provided by facilities licensed or operated by the [facility] Office of Mental Health; or Provided by the [facility] Office for People With Developmental Disabilities. If such information is present, then the following [facility] mandated warning applies: This information has been disclosed to you from confidential records which are protected by state law. State law prohibits you from making any further disclosure of this information without the specific written consent of the person to whom it pertains, or as otherwise permitted by law. Any unauthorized further disclosure in violation of state law may result in a fine or prison sentence or both. A general authorization for the release of medical or other information is NOT sufficient authorization for further disclosure. Insurance Providers Payer name Policy type Policy ID Covered Covered libertarian's Policy P gerson / Coverage libertarian ID relationship to Martin Inf ormation type martin VALUE [id number] SP [id number] OPTIONS-MEDI CAID VALUE [id number] SP [id number] OPTIONS-MEDI CAID HIP MEDICAID [id number] SP [id number] MEDICAID [id number] SP [id number] VALUE [id number] SP [id number] OPTIONS-MEDI CAID VALUE [id number] SP [id number] OPTIONS-MEDI CAID VALUE [id number] SP [id number] OPTIONS-MEDI CAID Results ID Date Data Source [id number] 07/13/2020 03:00:00 PM EDT [facility] Name Value Range Interpretation Description Data Sup porting Code Source(s) Document(s ) SARS [facility] coronavirus 2 RNA This lab was ordered by [facility] ct [facility] and reported by [facility]. ID Date Data Source [id number] 04/20/2020 11:29:00 AM EDT [facility] Name Value Range Interpretation Code Description Data Marilynn rce(s) Supporting Document(s ) SARS-CoV-2 [facility] Ql [facility]+probe This lab was ordered by [facility] a nd reported by [facility]. ID Date Data Source [id number] 04/10/2020 09:13:00 PM EDT [facility] Name Value Range Interpretation Code Description Data Marilynn rce(s) Supporting Document(s ) SARS-CoV-2 [facility] Ql [place]+probe This lab was ordered by [facility] a nd reported by [facility]. ID Date Data Source [id number] 03/19/2020 11:49:00 AM EDT [facility] Name Value Range Interpretation Code Description Data Marilynn rce(s) Supporting Document(s ) SARS-CoV-2 [facility] Ql [facility]+probe This lab was ordered by [facility] a nd reported by [facility]. Procedure
[2020-09-04 22:51] VITALS: BMI 24.3
--- NOTE | 2020-09-05 01:23 | HP ---
CIWA Score Nausea/Vomitin (vomiting x 2) Muscle Tremors: 5 Anxiety: 4-Mod. Anxious/Guarded Agitation: 4-Moderately Restless Paroxysmal Sweats: 2 Orientation: 1-Uncertain about Date Tacttile Disturbances: 0-None Auditory Disturbances: 0-None Visual Disturbances: 0-None Headache: 0-None Present CIWA-Ar Total Score: 19 - Admission Criteria OASAS Guidelines: Admission for Medically Managed Detox: Requires at least one of the followin. CIWA greater than 12 2. Seizures within the past 24 hours 3. Delirium tremens within the past 24 hours 4. Hallucinations within the past 24 hours 5. Acute intervention needed for co occurring medical disorder 6. Acute intervention needed for co occurring psychiatric disorder 7. Severe withdrawal that cannot be handled at a lower level of care (continued vomiting, continued diarrhea, abnormal vital signs) requiring intravenous medication and/or fluids 8. Admitting History and Physical - Past Medical History Gastrointestinal: Yes: Crohn's Disease, Pancreatitis - Smoking History Smoking history: Current every day smoker Have you smoked in the past 12 months: Yes Aproximately how many cigarettes per day: 40 - Alcohol/Substance Use Hx Alcohol Use: Yes History of Substance Use: reports: Marijuana, Tranquilizers - Social History ADL: Independent Occupation: unemployed History of Recent Travel: No Admission ROS [facility] Chief Complaint: Alcohol withdrawal symptoms Allergies/Adverse Reactions: Allergies Allergy/AdvReac Type Severity Reaction Status Date / Time No Known Allergies Allergy Verified 07/13/20 13:35 History of Present Illness: 40 years old male with a long history of alcohol dependence is seeking admission to detox. His last admission was for the period 07/13/20- - 07/16/2020 and he reports that he relapsed a couple of days post discharge. He drinks 4 pints of vodka daily. He has medical history of hyperthyroidism, COPD, hypercholesterolemia, hypertension, bronchitis, asthma, epilepsy and psych. history of depression, schizophrenia, bipolar disorder, anxiety, PTSD. He reports suicide attempt in 2007 and denies suicidal ideation at this time. He is unemployed, homeless and denies any legal issues. 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 He was referred from [facility] where he was evaluated for alcohol intoxication and status post a fall. He has multiple bruises on both knees and hands. His CIWA score is 19 and FREDDY is 0.248. Exam Limitations: No Limitations - Ebola screening Have you traveled outside of the country in the last 21 days: No Have you had contact with anyone from an Ebola affected area: No Have you been sick,other than usual withdrawal symptoms: No Do you have a fever: No - Review of Systems Constitutional: Chills, Changes in sleep EENT: reports: No Symptoms Reported Respiratory: reports: No Symptoms reported Cardiac: reports: No Symptoms Reported GI: reports: Nausea, Poor Appetite, Poor Fluid Intake, Vomiting (x 2), Abdominal cramping : reports: No Symptoms Reported Musculoskeletal: reports: Back Pain, Muscle Pain Integumentary: reports: Dryness, Flushing Neuro: reports: Tremors Endocrine: reports: No Symptoms Reported Hematology: reports: No Symptoms Reported Psychiatric: reports: Anxious, Depressed Other Systems: Reviewed and Negative Patient History - Patient Medical History Hx Anemia: No Hx Asthma: Yes Hx Chronic Obstructive Pulmonary Disease (COPD): Yes Hx Cancer: No Hx Cardiac Disorders: No Hx Congestive Heart Failure: No Hx Hypertension: Yes Hx Hypercholesterolemia: Yes Hx Pacemaker: No HX Cerebrovascular Accident: No Hx Seizures: Yes (12/2019) Hx Dementia: No Hx Diabetes: No Hx Gastrointestinal Disorders: No Hx Liver Disease: No Hx Genitourinary Disorders: No Hx Sexually Transmitted Disorders: No Hx Renal Disease (ESRD): No Hx Thyroid Disease: Yes (hyperthyroidism) Hx Human Immunodeficiency Virus (HIV): No Hx Hepatitis C: No Hx Depression: Yes Hx Suicide Attempt: Yes (Attempt in 2007, denies suicidal ideation at this time) Hx Bipolar Disorder: Yes Hx Schizophrenia: Yes - Patient Surgical History Past Surgical History: No Hx Neurologic Surgery: No Hx Cataract Extraction: No Hx Cardiac Surgery: No Hx Lung Surgery: No Hx Abdominal Surgery: No Hx Appendectomy: No Hx Cholecystectomy: No Hx Genitourinary Surgery: No Hx Orthopedic Surgery: No Anesthesia Reaction: No - PPD History Previous Implant?: Yes Documented Results: Negative w/proof Implanted On Prior R Admission?: Yes Date: 02/17/20 Results: 0MM PPD to be Administered?: No - Reproductive History Patient is a Female of Child Bearing Age (11 -55 yrs old): No (male) - Smoking Cessation Smoking history: Current every day smoker Have you smoked in the past 12 months: Yes Aproximately how many cigarettes per day: 40 Hx Chewing Tobacco Use: No Initiated information on smoking cessation: Yes 'Breaking Loose' booklet given: 09/05/20 - Substance & Tx. History Hx Alcohol Use: Yes Hx Substance Use: Yes Substance Use Type: Alcohol, Cocaine, Marijuana Hx Substance Use Treatment: Yes ([facility]) - Substances abused Alcohol Substance route: Oral Frequency: Daily Amount used: 4 pints Vodka Age of first use: 8 Date of last use: 09/04/20 Admission Physical Exam [facility] - Vital Signs Vital Signs: Vital Signs - 24 hr 09/04/20 22:49 Temperature 98 F Pulse Rate 111 H Respiratory 20 Rate Blood Pressure 124/77 - Physical General Appearance: Yes: Intoxicated, Tremorous, Irritable, Sweating, Anxious HEENTM: Yes: Within Normal Limits Respiratory: Yes: Lungs Clear, Normal Breath Sounds, No Respiratory Distress Neck: Yes: Within Normal Limits Breast: Yes: Breast Exam Deferred Cardiology: Yes: Tachycardia Abdominal: Yes: Normal Bowel Sounds Genitourinary: Yes: Within Normal Limits Back: Yes: Normal Inspection Extremities: Yes: Tremors Neurological: Yes: Within Normal Limits Integumentary: Yes: Warm Lymphatic: Yes: Within Normal Limits - Diagnostic (1) Alcohol dependence with withdrawal, uncomplicated Current Visit: Yes Status: Acute (2) Hypertension Current Visit: Yes Status: Chronic Qualifiers: Hypertension type: essential hypertension Qualified Code(s): I10 - Essential (primary) hypertension (3) Asthma Current Visit: Yes Status: Chronic Qualifiers: Asthma severity: mild Asthma persistence: intermittent Asthma complication type: uncomplicated Qualified Code(s): J45.20 - Mild intermittent asthma, uncomplicated (4) Bipolar disorder Current Visit: Yes Status: Chronic (5) COPD (chronic obstructive pulmonary disease) Current Visit: Yes Status: Chronic Qualifiers: COPD type: chronic bronchitis (6) Hypercholesterolemia Current Visit: Yes Status: Chronic (7) Hyperthyroidism Current Visit: Yes Status: Chronic (8) Nicotine dependence Current Visit: Yes Status: Chronic Qualifiers: Nicotine product type: cigarettes Substance use status: uncomplicated Qualified Code(s): F17.210 - Nicotine dependence, cigarettes, uncomplicated (9) PTSD (post-traumatic stress disorder) Current Visit: Yes Status: Chronic (10) Seizure disorder Current Visit: Yes Status: Chronic (11) Schizoaffective disorder Current Visit: Yes Status: Chronic Cleared for Admission [facility] - Detox or Rehab [facility] Level of Care: Medically Managed Detox Regimen/Protocol: Librium Claeared for Rehab Admission: No Breathalyzer - Breathalyzer Breathalyzer: 0.248 Urine Drug Screen - Test Device Lot number: [id number] Expiration date: 03/03/22 - Control Is test valid?: Yes - Results Drug screen NEGATIVE: No Urine drug screen results: THC-Marijuana, SENIA-Cocaine, BZO-Benzodiazepines Inpatient Rehab Admission - Rehab Decision to Admit Inpatient rehab admission?: No
[2020-09-05] MEDS ORDERED: BISMUTH SUBSALICYLATE 524 MG/30 ML UD PO PRN (02:06)
[2020-09-05] MEDS ORDERED: METHOCARBAMOL 500 MG TABLET PO PRN (02:06)
[2020-09-05] MEDS ORDERED: ACETAMINOPHEN 325 MG TABLET (FP) PO PRN ×2 (02:06)
[2020-09-05] MEDS ORDERED: MAGNESIUM CITRATE 300 ML BOTTLE PO PRN (02:06)
[2020-09-05] MEDS ORDERED: NICOTINE POLACRILEX 2 MG GUM BUC PRN (02:06)
[2020-09-05] MEDS ORDERED: IBUPROFEN 400 MG TABLET (FP) PO PRN (02:06)
[2020-09-05] MEDS ORDERED: MAG HYDROX/AL HYDROX/SIMETH 30 ML UNIT-DOSE CUP PO PRN (02:06)
[2020-09-05] MEDS ORDERED: MAGNESIUM HYDROX 2400MG/30ML ORAL SUSPENSION 30 ML CUP PO PRN (02:06)
[2020-09-05] MEDS ORDERED: MENTHOL/PHENOL 1 EACH UD MM PRN (02:06)
--- OUTSIDE RECORDS SUMMARY | 2020-09-05 02:45 | XMS ---
:1980 Author Organization [facility] Name Relationship Address Phone LUKE AUNT [address] [place] [address] [address] [place] [address] UE Unavailable Unavailable Unavailable FADI FRIEND [address] [place] [address] [place] [address] Re-disclosure Warning The records that you are [...] is protected by Article 27-F of the [facility] Public Health law. If you continue you may haveaccess to information: Regarding HIV / AIDS; Provided by facilities licensed or operated by the [facility] Office of Mental Health; or Provided by the [facility] Office for People With Developmental Disabilities. If such information is present, then the following [facility] mandated warning applies: This information has been [...] law may result in a fine or chcf sentence or both. A general authorization for the release of medical or other information is NOT sufficient authorization for further disclosure. Insurance Providers Payer name Policy type Policy ID Covered Covered green party's Policy P gerson / Coverage green party ID relationship to [facility] [employer] ormation type martin VALUE [id number] SP [id number] OPTIONS-MEDI CAID VALUE [id number] SP [id number] OPTIONS-MEDI CAID HIP MEDICAID [id number] SP [id number] MEDICAID [id number] SP [id number] VALUE [id number] SP [id number] OPTIONS-MEDI CAID VALUE [id number] SP [id number] OPTIONS-MEDI CAID VALUE [id number] SP [id number] OPTIONS-MEDI CAID Results ID Date Data Source [id number] 07/13/2020 03:00:00 PM EDT [facility] Name Value Range Interpretation Description Data Sup porting Code Source(s) Document(s ) SARS [facility] coronavirus 2 RNA This lab was ordered by [facility] ct Bill Inter and reported by [facility]. ID Date Data Source [id number] 04/20/2020 11:29:00 AM EDT [facility] Name Value Range Interpretation Code Description Data Marilynn rce(s) Supporting Document(s ) SARS-CoV-2 [facility] [place]+probe This lab was ordered by [facility] a nd reported by [facility]. ID Date Data Source [id number] 04/10/2020 09:13:00 PM EDT [facility] Name Value Range Interpretation Code Description Data Marilynn rce(s) Supporting Document(s ) SARS-CoV-2 [facility] Ql [place]+probe This lab was ordered by [facility] a nd reported by [facility]. ID Date Data Source [id number] 03/19/2020 11:49:00 AM EDT [facility] Name Value Range Interpretation Code Description Data Marilynn rce(s) Supporting Document(s ) SARS-CoV-2 [facility] [place]+probe This lab was ordered by [facility] a nd reported by [facility]. Procedure
[2020-09-05] MEDS: chlordiazePOXIDE HCL 25 MG CAPSULE PO PRN ×3 (06:44→14:39)
[2020-09-05] MEDS: PRENATAL VITAMINS W/ FOLIC ACID TABLET (FP) PO SCH (10:34)
[2020-09-05] MEDS: NICOTINE 21 MG/24 HOURS TOPICAL PATCH TD SCH (10:35)
[2020-09-05] MEDS: ONDANSETRON *ODT* 4 MG TABLET SL PRN (12:58)
--- NOTE | 2020-09-05 13:00 | CONSULT ---
[facility] Psychiatric Consult - Data Date of interview: 09/05/20 Admission source: [facility] Identifying data: Patient is a 40 year old single male, without children, unemployed, resides in a care home, and is not currently receiving financial assistance. This is one of multiple admissions for patient. Patient admitted to for alcohol dependence. Substance Abuse History: Smoking Cessation. Smoking history: Current every day smoker. Have you smoked in the past 12 months: Yes. Aproximately how many cigarettes per day: 40. Hx Chewing Tobacco Use: No. Initiated information on smoking cessation: Yes. 'Breaking Loose' booklet given: 09/05/20. - Substance & Tx. History. Hx Alcohol Use: Yes. Hx Substance Use: Yes. Substance Use Type: Alcohol, Cocaine, Marijuana. Hx Substance Use Treatment: Yes ([facility] - Substances abused. Alcohol. Substance route: Oral. Frequency: Daily. Amount used: 4 pints Vodka. Age of first use: 8. Date of last use: 09/04/20 Medical History: Significant for bronchial asthma, GERD, hyperthyroidism, dyslipidemia and seizure disorder (on levetiracetam). Psychiatric History: Interview conducted bedside. Mr. Cardona reports history of multiple psychiatric hospitalizations at various hospitals including but not limited to [facility], [facility], [facility], and [facility]. Mr. Cardona reports a diagnosis of Bipolar Disorder, Schizoaffective disorder, PTSD and Panic Disorder with Agoraphobia. Mr. Cardona states that he see's a psychiatrist at the [facility] and is prescribed zoloft 50mg + Zyprexa 10mg HS+ Depakote (unsure of dose). Mr. 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 Patient seen by Dr. Cary on 06/2020 and was resumed on zoloft 50mg daily + zyprexa 10mg HS + Depakote 500mg BID (reduced dose). Mr. Cardona reports being off medications for approximately one week. History of one suicide attempt in 2013. At present patient denies auditory/ visual hallucinations, suicidal/ homicidal ideation. Physical/Sexual Abuse/Trauma History: denies. Mental Status Exam - Mental Status Exam Alert and Oriented to: Time, Place, Person Cognitive Function: Good Patient Appearance: Disheveled Mood: Withdrawn Affect: Mood Congruent Patient Behavior: Fatigued Speech Pattern: Delayed Voice Loudness: Mildly Soft/Quiet Thought Process: Goal Oriented Thought Disorder: Not Present Hallucinations: Denies Suicidal Ideation: Denies Homicidal Ideation: Denies Insight/Judgement: Poor Sleep: Fair Appetite: Fair Muscle strength/Tone: Normal Gait/Station: Other (Gait not observed.) Psychiatric Findings - Problem List ([place]man 1, 2,3) (1) Alcohol dependence with withdrawal, uncomplicated Current Visit: Yes Status: Acute (2) PTSD (post-traumatic stress disorder) Current Visit: Yes Status: Chronic (3) Panic disorder with agoraphobia Current Visit: Yes Status: Suspected (4) History of bipolar disorder Current Visit: Yes Status: Chronic (5) Cocaine dependence Current Visit: Yes Status: Acute (6) Substance induced mood disorder Current Visit: Yes Status: Acute - Initial Treatment Plan Initial Treatment Plan: Psychoeducation provided. Detoxification in progress. Will order Zoloft 50mg daily + Depakote 250 daily +500mg HS (reduced dose as per patient's request) + Zyprexa 10mg HS. Benefits and side effects discussed. Verbal consent given.
--- NOTE | 2020-09-05 13:09 | PN ---
S CIWA - CIWA Score Nausea/Vomitin-Mild Nausea/No Vomiting Muscle Tremors: 3 Anxiety: 4-Mod. Anxious/Guarded Agitation: 2 Paroxysmal Sweats: 2 Orientation: 0-Oriented Tacttile Disturbances: 0-None Auditory Disturbances: 0-None Visual Disturbances: 0-None Headache: 0-None Present CIWA-Ar Total Score: 12 S Progress Note (SOAP) Subjective: C/O nausea, tremors, sweats, anxiety, and interrupted sleep. Objective: 09/05/20 13:08 Vital Signs 09/05/20 09/05/20 09/05/20 05:38 07:30 08:49 Temperature 98 F 97.7 F Pulse Rate 85 81 79 Respiratory 16 18 18 Rate Blood Pressure 98/50 L 109/68 112/69 O2 Sat by Pulse 98 Oximetry (%) Laboratory Last Values Syphilis Serology Non-reactive (NONREACTIVE) 09/05/20 07:35 Labs noted. Assessment: 09/05/20 13:09 Alert and oriented x3, in no acute respiratory distress. Full ROM, ambulating in the unit without assistance. Withdrawal symptoms. Plan: Continue detox protocol.
--- NOTE | 2020-09-05 21:49 | EKG ---
Test Reason : Blood Pressure : / mmHG Vent. Rate : 070 BPM Atrial Rate : 070 BPM P-R Int : 112 ms QRS Dur : 082 ms QT Int : 392 ms P-R-T Axes : 029 074 058 degrees QTc Int : 423 ms NORMAL SINUS RHYTHM WITH SINUS ARRHYTHMIA NORMAL ECG WHEN COMPARED WITH ECG OF 29-JUL-2019 17:11, NO SIGNIFICANT CHANGE WAS FOUND Confirmed by Ratna Haddad ([id number]) on 09/05/2020 9:48:52 PM Referred By: Rocky Colon Confirmed By:Ratna Haddad
[2020-09-05] MEDS: DIVALPROEX SODIUM 500 MG TABLET E.C. PO SCH (22:24)
[2020-09-05] MEDS: chlordiazePOXIDE HCL 25 MG CAPSULE PO SCH (22:24)
[2020-09-05] MEDS: THIAMINE HCL 100 MG TABLET (FP) PO SCH (22:24)
[2020-09-05] MEDS: OLANZapine 10 MG TABLET PO SCH (22:24)
[2020-09-05] MEDS: MELATONIN 5 MG TABLETS PO SCH (22:27)
[2020-09-06] MEDS: chlordiazePOXIDE HCL 25 MG CAPSULE PO SCH ×4 (05:47→22:28)
[2020-09-06] MEDS: PRENATAL VITAMINS W/ FOLIC ACID TABLET (FP) PO SCH (10:19)
[2020-09-06] MEDS: DIVALPROEX SODIUM 250 MG TABLET E.C. PO SCH (10:19)
[2020-09-06] MEDS: SERTRALINE HCL 50 MG TABLET (FP) PO SCH (10:19)
[2020-09-06] MEDS: NICOTINE 21 MG/24 HOURS TOPICAL PATCH TD SCH (10:19)
[2020-09-06 10:28] LABS: HEMATOCRIT 38.4 % (35.4-49); HEMOGLOBIN 13.1 GM/dL (11.7-16.9); MCH 32.5 pg (25.7-33.7); MCHC 34.1 g/dl (32.0-35.9); MEAN CELL VOLUME 95.4 fl (80-96); MEAN PLT VOLUME 8.7 fl (7.5-11.1); PLATELET COUNT 316 K/MM3 (134-434); RBC 4.02 M/mm3 (4.00-5.60); RDW 14.7 % (11.9-15.9); WHITE BLOOD COUNT 6.1 K/mm3 (4.0-10.0)
[2020-09-06 11:22] LABS: ALBUMIN 3.4 g/dl (3.4-5.0); BILIRUBIN,TOTAL 0.2 mg/dL (0.2-1); CREATININE 0.6 mg/dL (0.55-1.3); POTASSIUM 3.8 mmol/L (3.5-5.1); TOT PROT 6.3 g/dl (6.4-8.2)
[2020-09-06 11:27] LABS: BLOOD UREA NITROGEN 6.3 mg/dL (7-18); CALCIUM 8.2 mg/dL (8.5-10.1)
--- NOTE | 2020-09-06 11:32 | PN ---
S CIWA - CIWA Score Nausea/Vomitin-No Nausea/No Vomiting Muscle Tremors: 2 Anxiety: 2 Agitation: 2 Paroxysmal Sweats: 2 Orientation: 0-Oriented Tacttile Disturbances: 0-None Auditory Disturbances: 0-None Visual Disturbances: 0-None Headache: 0-None Present CIWA-Ar Total Score: 8 BHS Progress Note (SOAP) Subjective: sweats body aches interrupted sleep restless Objective: 09/06/20 11:31 Vital Signs Temperature 97.8 F 09/06/20 08:50 Pulse Rate 88 09/06/20 08:50 Respiratory Rate 18 09/06/20 08:50 Blood Pressure 117/50 L 09/06/20 08:50 O2 Sat by Pulse Oximetry (%) 95 09/06/20 08:50 Laboratory Tests 09/05/20 09/06/20 09/06/20 07:35 06:00 06:00 WBC 6.1 RBC 4.02 Hgb 13.1 Hct 38.4 D MCV 95.4 MCH 32.5 MCHC 34.1 RDW 14.7 Plt Count 316 MPV 8.7 Sodium 143 Potassium 3.8 Chloride 107 Carbon Dioxide 26 Anion Gap 9 BUN 6.3 L Creatinine 0.6 Est GFR (CKD-EPI)AfAm 144.74 Est GFR (CKD-EPI)NonAf 124.89 Random Glucose 73 L Calcium 8.2 L Total Bilirubin 0.2 AST 55 H ALT 52 Alkaline Phosphatase 74 Total Protein 6.3 L Albumin 3.4 Syphilis Serology Non-reactive labs noted aaox3 lying in bed no acute distress Assessment: 09/06/20 11:31 withdrawals Plan: continue detox
[2020-09-06] MEDS: chlordiazePOXIDE HCL 25 MG CAPSULE PO PRN (13:57)
[2020-09-06] MEDS: ONDANSETRON *ODT* 4 MG TABLET SL PRN (15:13)
[2020-09-06] MEDS: DIVALPROEX SODIUM 500 MG TABLET E.C. PO SCH (22:28)
[2020-09-06] MEDS: THIAMINE HCL 100 MG TABLET (FP) PO SCH (22:28)
[2020-09-06] MEDS: OLANZapine 10 MG TABLET PO SCH (22:28)
[2020-09-06] MEDS: MELATONIN 5 MG TABLETS PO SCH (22:28)
[2020-09-07] MEDS: chlordiazePOXIDE HCL 25 MG CAPSULE PO SCH ×4 (06:12→22:28)
[2020-09-07] MEDS: PRENATAL VITAMINS W/ FOLIC ACID TABLET (FP) PO SCH (10:02)
[2020-09-07] MEDS: SERTRALINE HCL 50 MG TABLET (FP) PO SCH (10:02)
[2020-09-07] MEDS: DIVALPROEX SODIUM 250 MG TABLET E.C. PO SCH (10:02)
[2020-09-07] MEDS: NICOTINE 21 MG/24 HOURS TOPICAL PATCH TD SCH (10:03)
--- NOTE | 2020-09-07 10:31 | PN ---
S CIWA - CIWA Score Nausea/Vomitin-No Nausea/No Vomiting Muscle Tremors: 2 Anxiety: 1-Mildly Anxious Agitation: 2 Paroxysmal Sweats: 2 Orientation: 0-Oriented Tacttile Disturbances: 0-None Auditory Disturbances: 0-None Visual Disturbances: 0-None Headache: 0-None Present CIWA-Ar Total Score: 7 BHS Progress Note (SOAP) Subjective: sweats chills body aches interrupted sleep Objective: 09/07/20 10:31 Vital Signs Temperature 97.1 F L 09/07/20 08:52 Pulse Rate 68 09/07/20 08:52 Respiratory Rate 18 09/07/20 08:52 Blood Pressure 100/63 09/07/20 08:52 O2 Sat by Pulse Oximetry (%) 96 09/07/20 08:52 Laboratory Tests 09/05/20 09/05/20 09/06/20 07:35 07:35 06:00 WBC 6.1 RBC 4.02 Hgb 13.1 Hct 38.4 D MCV 95.4 MCH 32.5 MCHC 34.1 RDW 14.7 Plt Count 316 MPV 8.7 Sodium Potassium Chloride Carbon Dioxide Anion Gap BUN Creatinine Est GFR (CKD-EPI)AfAm Est GFR (CKD-EPI)NonAf Random Glucose Calcium Total Bilirubin AST ALT Alkaline Phosphatase Total Protein Albumin Syphilis Serology Non-reactive COVID-19 ([place]) Not detected 09/06/20 06:00 WBC RBC Hgb Hct MCV MCH MCHC RDW Plt Count MPV Sodium 143 Potassium 3.8 Chloride 107 Carbon Dioxide 26 Anion Gap 9 BUN 6.3 L Creatinine 0.6 Est GFR (CKD-EPI)AfAm 144.74 Est GFR (CKD-EPI)NonAf 124.89 Random Glucose 73 L Calcium 8.2 L Total Bilirubin 0.2 AST 55 H ALT 52 Alkaline Phosphatase 74 Total Protein 6.3 L Albumin 3.4 Syphilis Serology COVID-19 ([place]) aaox3 ambulating no acute distress Assessment: 09/07/20 10:31 withdrawals Plan: continue detox
[2020-09-07] MEDS: chlordiazePOXIDE HCL 25 MG CAPSULE PO PRN (14:12)
[2020-09-07] MEDS: MELATONIN 5 MG TABLETS PO SCH (22:28)
[2020-09-07] MEDS: OLANZapine 10 MG TABLET PO SCH (22:28)
[2020-09-07] MEDS: DIVALPROEX SODIUM 500 MG TABLET E.C. PO SCH (22:28)
[2020-09-07] MEDS: THIAMINE HCL 100 MG TABLET (FP) PO SCH (22:28)
[2020-09-08] MEDS ORDERED: chlordiazePOXIDE HCL 10 MG CAPSULE PO PRN
[2020-09-08] MEDS: chlordiazePOXIDE HCL 10 MG CAPSULE PO SCH ×4 (06:24→22:30)
[2020-09-08] MEDS: DIVALPROEX SODIUM 250 MG TABLET E.C. PO SCH (10:36)
[2020-09-08] MEDS: SERTRALINE HCL 50 MG TABLET (FP) PO SCH (10:36)
[2020-09-08] MEDS: NICOTINE 21 MG/24 HOURS TOPICAL PATCH TD SCH (10:36)
[2020-09-08] MEDS: PRENATAL VITAMINS W/ FOLIC ACID TABLET (FP) PO SCH (10:36)
--- NOTE | 2020-09-08 13:21 | PN ---
BHS CIWA - CIWA Score Nausea/Vomitin-No Nausea/No Vomiting Muscle Tremors: 2 Anxiety: 1-Mildly Anxious Agitation: 1-Slight > Activity Paroxysmal Sweats: 1-Minimal Palms Moist Orientation: 0-Oriented Tacttile Disturbances: 0-None Auditory Disturbances: 0-None Visual Disturbances: 0-None Headache: 0-None Present CIWA-Ar Total Score: 5 BHS Progress Note (SOAP) Subjective: sweats body aches Objective: 09/08/20 13:20 Vital Signs Temperature 97.1 F L 09/08/20 09:56 Pulse Rate 75 09/08/20 09:56 Respiratory Rate 16 09/08/20 09:56 Blood Pressure 100/68 09/08/20 09:56 O2 Sat by Pulse Oximetry (%) 96 09/08/20 09:56 Laboratory Tests 09/05/20 09/05/20 09/06/20 07:35 07:35 06:00 WBC 6.1 RBC 4.02 Hgb 13.1 Hct 38.4 D MCV 95.4 MCH 32.5 MCHC 34.1 RDW 14.7 Plt Count 316 MPV 8.7 Sodium Potassium Chloride Carbon Dioxide Anion Gap BUN Creatinine Est GFR (CKD-EPI)AfAm Est GFR (CKD-EPI)NonAf Random Glucose Calcium Total Bilirubin AST ALT Alkaline Phosphatase Total Protein Albumin Syphilis Serology Non-reactive COVID-19 ([facility]) Not detected 09/06/20 06:00 WBC RBC Hgb Hct MCV MCH MCHC RDW Plt Count MPV Sodium 143 Potassium 3.8 Chloride 107 Carbon Dioxide 26 Anion Gap 9 BUN 6.3 L Creatinine 0.6 Est GFR (CKD-EPI)AfAm 144.74 Est GFR (CKD-EPI)NonAf 124.89 Random Glucose 73 L Calcium 8.2 L Total Bilirubin 0.2 AST 55 H ALT 52 Alkaline Phosphatase 74 Total Protein 6.3 L Albumin 3.4 Syphilis Serology COVID-19 ([facility]) labs noted aaox3 ambulating no acute distress Assessment: 09/08/20 13:20 withdrawals Plan: continue detox
[2020-09-08] MEDS: DIVALPROEX SODIUM 500 MG TABLET E.C. PO SCH (22:30)
[2020-09-08] MEDS: OLANZapine 10 MG TABLET PO SCH (22:30)
[2020-09-08] MEDS: THIAMINE HCL 100 MG TABLET (FP) PO SCH (22:30)
[2020-09-08] MEDS: MELATONIN 5 MG TABLETS PO SCH (22:30)
[2020-09-09] MEDS: chlordiazePOXIDE HCL 10 MG CAPSULE PO SCH ×2 (06:42→18:01)
[2020-09-09] MEDS: PRENATAL VITAMINS W/ FOLIC ACID TABLET (FP) PO SCH (09:49)
[2020-09-09] MEDS: SERTRALINE HCL 50 MG TABLET (FP) PO SCH (09:49)
[2020-09-09] MEDS: DIVALPROEX SODIUM 250 MG TABLET E.C. PO SCH (09:49)
[2020-09-09] MEDS: NICOTINE 21 MG/24 HOURS TOPICAL PATCH TD SCH (09:49)
--- NOTE | 2020-09-09 13:39 | PN ---
S CIWA - CIWA Score Nausea/Vomitin-No Nausea/No Vomiting Muscle Tremors: 1-None Visible, but [place] Anxiety: 1-Mildly Anxious Agitation: 1-Slight > Activity Paroxysmal Sweats: No Perspiration Orientation: 0-Oriented Tacttile Disturbances: 0-None Auditory Disturbances: 0-None Visual Disturbances: 0-None Headache: 0-None Present CIWA-Ar Total Score: 3 BHS Progress Note (SOAP) Subjective: feeling better Objective: 09/09/20 13:38 Vital Signs Temperature 96.9 F L 09/09/20 12:34 Pulse Rate 95 H 09/09/20 12:34 Respiratory Rate 18 09/09/20 12:34 Blood Pressure 121/81 09/09/20 12:34 O2 Sat by Pulse Oximetry (%) 99 09/09/20 12:34 aaox3 ambulating no acute distress Assessment: 09/09/20 13:38 withdrawal sx Plan: complete detox d/c in am
[2020-09-09] MEDS: DIVALPROEX SODIUM 500 MG TABLET E.C. PO SCH (22:10)
[2020-09-09] MEDS: OLANZapine 10 MG TABLET PO SCH (22:10)
[2020-09-09] MEDS: THIAMINE HCL 100 MG TABLET (FP) PO SCH (22:10)
[2020-09-09] MEDS: MELATONIN 5 MG TABLETS PO SCH (22:11)
[2020-09-10] MEDS ORDERED: chlordiazePOXIDE HCL 10 MG CAPSULE PO ONE (05:00)
[2020-09-10 07:32] VITALS: BP 114/76; PULSE 86; TEMP 98.6
--- NOTE | 2020-09-10 09:12 | DS ---
[facility] Detox Discharge Summary Admission Date: 09/05/20 Discharge Date: 09/10/20 - History Present History: Alcohol Dependence, Cocaine Dependence - Physical Exam Results Vital Signs: Vital Signs Temperature 98.6 F 09/10/20 06:05 Pulse Rate 86 09/10/20 06:05 Respiratory Rate 16 09/10/20 06:05 Blood Pressure 114/76 09/10/20 06:05 O2 Sat by Pulse Oximetry (%) 97 09/10/20 06:05 Pertinent Admission Physical Exam Findings: Vital Signs Temperature 98.6 F 09/10/20 06:05 Pulse Rate 86 09/10/20 06:05 Respiratory Rate 16 09/10/20 06:05 Blood Pressure 114/76 09/10/20 06:05 O2 Sat by Pulse Oximetry (%) 97 09/10/20 06:05 Laboratory Tests 09/05/20 09/05/20 09/05/20 07:35 07:35 07:35 WBC RBC Hgb Hct MCV MCH MCHC RDW Plt Count MPV Sodium Potassium Chloride Carbon Dioxide Anion Gap BUN Creatinine Est GFR (CKD-EPI)AfAm Est GFR (CKD-EPI)NonAf Random Glucose Calcium Total Bilirubin AST ALT Alkaline Phosphatase Total Protein Albumin Levetiracetam <1.0 L Syphilis Serology Non-reactive COVID-19 ([facility]) Not detected 09/06/20 09/06/20 06:00 06:00 WBC 6.1 RBC 4.02 Hgb 13.1 Hct 38.4 D MCV 95.4 MCH 32.5 MCHC 34.1 RDW 14.7 Plt Count 316 MPV 8.7 Sodium 143 Potassium 3.8 Chloride 107 Carbon Dioxide 26 Anion Gap 9 BUN 6.3 L Creatinine 0.6 Est GFR (CKD-EPI)AfAm 144.74 Est GFR (CKD-EPI)NonAf 124.89 Random Glucose 73 L Calcium 8.2 L Total Bilirubin 0.2 AST 55 H ALT 52 Alkaline Phosphatase 74 Total Protein 6.3 L Albumin 3.4 Levetiracetam Syphilis Serology COVID-19 ([facility]) lab noted aaox3 ambulating no acute distress lungs CTA - Treatment Hospital Course: Detox Protocol Followed, Detoxed Safely, Responded well, Discharged Condition Good, Rehab Referral Accepted - Medication Discharge Medications: Ambulatory Orders Simvastatin 20 mg PO HS 07/24/19 Famotidine 20 mg PO DAILY 09/14/19 Folic Acid 1 mg PO DAILY 09/14/19 Multivitamins [Tab-A-Vit -] 1 tab PO DAILY 09/14/19 Olanzapine [Olanzapine Odt] 10 mg PO HS 09/14/19 Sertraline HCl [Zoloft] 50 mg PO DAILY 09/14/19 levETIRAcetam [Keppra -] 750 mg PO BID 09/14/19 Gabapentin [Neurontin -] 600 mg PO TID #90 capsule 09/19/19 Levothyroxine Sodium [Synthroid] 50 mcg PO DAILY #30 tablet 09/19/19 Escitalopram Oxalate [Lexapro -] 20 mg PO DAILY 02/15/20 Divalproex [Depakote -] 1,000 mg PO HS 07/13/20 Divalproex [Depakote -] 500 mg PO DAILY 07/13/20 - Diagnosis (1) Alcohol dependence with withdrawal, uncomplicated Current Visit: Yes Status: Acute (2) Cocaine dependence Current Visit: Yes Status: Acute (3) Substance induced mood disorder Current Visit: Yes Status: Acute (4) Asthma Current Visit: Yes Status: Chronic Qualifiers: Asthma severity: mild Asthma persistence: intermittent Asthma complication type: uncomplicated Qualified Code(s): J45.20 - Mild intermittent asthma, uncomplicated (5) Bipolar disorder Current Visit: Yes Status: Chronic (6) COPD (chronic obstructive pulmonary disease) Current Visit: Yes Status: Chronic Qualifiers: COPD type: chronic bronchitis (7) History of bipolar disorder Current Visit: Yes Status: Chronic (8) Hypercholesterolemia Current Visit: Yes Status: Chronic (9) Hypertension Current Visit: Yes Status: Chronic Qualifiers: Hypertension type: essential hypertension Qualified Code(s): I10 - Essential (primary) hypertension (10) Hyperthyroidism Current Visit: Yes Status: Chronic (11) Nicotine dependence Current Visit: Yes Status: Chronic Qualifiers: Nicotine product type: cigarettes Substance use status: uncomplicated Qualified Code(s): F17.210 - Nicotine dependence, cigarettes, uncomplicated (12) PTSD (post-traumatic stress disorder) Current Visit: Yes Status: Chronic (13) Seizure disorder Current Visit: Yes Status: Chronic (14) Panic disorder with agoraphobia Current Visit: Yes Status: Suspected (15) Schizoaffective disorder Current Visit: Yes Status: Suspected (16) Alcohol-induced anxiety disorder Current Visit: No Status: Acute (17) Alcohol-induced sleep disorder Current Visit: No Status: Acute (18) Drug-induced mood disorder Current Visit: No Status: Acute (19) Gastroenteritis Current Visit: No Status: Acute (20) Seborrheic dermatitis Current Visit: No Status: Acute (21) Substance-induced sleep disorder Current Visit: No Status: Acute (22) Uncomplicated alcohol withdrawal Current Visit: No Status: Acute (23) Alcohol dependence Current Visit: No Status: Chronic Qualifiers: Substance use status: uncomplicated Qualified Code(s): F10.20 - Alcohol dependence, uncomplicated (24) Cannabis abuse Current Visit: No Status: Chronic (25) History of bipolar disorder Current Visit: No Status: Chronic (26) Hypothyroidism Current Visit: No Status: Chronic Qualifiers: Hypothyroidism type: acquired Qualified Code(s): E03.9 - Hypothyroidism, unspecified (27) Insomnia Current Visit: No Status: Chronic Qualifiers: Insomnia type: unspecified Qualified Code(s): G47.00 - Insomnia, unspecified (28) Nicotine dependence Current Visit: No Status: Chronic Qualifiers: Nicotine product type: cigarettes Substance use status: uncomplicated Qualified Code(s): F17.210 - Nicotine dependence, cigarettes, uncomplicated (29) Non-compliant patient Current Visit: No Status: Chronic (30) Opioid dependence on agonist therapy Current Visit: No Status: Chronic (31) Substance induced mood disorder Current Visit: No Status: Chronic - AMA Did Patient Leave Against Medical Advice: No
[2020-09-10] MEDS: SERTRALINE HCL 50 MG TABLET (FP) PO SCH (09:33)
[2020-09-10] MEDS: DIVALPROEX SODIUM 250 MG TABLET E.C. PO SCH (09:33)
[2020-09-10] MEDS: PRENATAL VITAMINS W/ FOLIC ACID TABLET (FP) PO SCH (11:00)
[2020-09-10] MEDS: NICOTINE 21 MG/24 HOURS TOPICAL PATCH TD SCH (11:01)
== END 2020-09-10 09:57 | disposition home or self-care (01) | DRG 774 ==
LOC: YASAS 21:17 → Y6N 09-05 02:41
PROVIDERS: ADMIT Allergy & Immunology; ATTEND Allergy & Immunology
PROC: HZ2ZZZZ Detoxification Services for Substance Abuse Treatment (ICD-10-PCS; principal; 2020-09-05)
DX: F10.230 Alcohol dependence with withdrawal, uncomplicated (principal); F14.20 Cocaine dependence, uncomplicated; F12.20 Cannabis dependence, uncomplicated; F17.210 Nicotine dependence, cigarettes, uncomplicated; F31.9 Bipolar disorder, unspecified; F25.9 Schizoaffective disorder, unspecified; F19.24 Other psychoactive substance dependence with psychoactive substance-induced mood disorder; F43.10 Post-traumatic stress disorder, unspecified; F40.01 Agoraphobia with panic disorder; I10 Essential (primary) hypertension; E05.90 Thyrotoxicosis, unspecified without thyrotoxic crisis or storm; E78.00 Pure hypercholesterolemia, unspecified; G40.909 Epilepsy, unspecified, not intractable, without status epilepticus; J42 Unspecified chronic bronchitis; J45.20 Mild intermittent asthma, uncomplicated; Z91.5 Personal history of self-harm; Z56.0 Unemployment, unspecified; Z59.0 Homelessness
CPT/HCPCS: 36415; 80053; 80177; 85027; 86780; 93005; 93010; C9803; Q0162; U0003

== ENCOUNTER 2021-01-21 12:53 | Inpatient (IN) | payer OTHER ==
[2021-01-21] MEDS ORDERED: LORazepam 2 MG/ML SDV VIAL IM ONE (13:23)
[2021-01-21] MEDS ORDERED: LORazepam 2 MG/ML SDV VIAL ONE (13:27)
[2021-01-21 15:09] LABS: BASO % 0.4 % (0-2.0); EOS % 0.1 % (0-4.5); HEMATOCRIT 45.5 % (35.4-49); HEMOGLOBIN 15.4 GM/dL (11.7-16.9); LYMPH % 38.2 % (8-40); MCH 32.6 pg (25.7-33.7); MEAN CELL VOLUME 95.9 fl (80-96); MEAN PLT VOLUME 7.9 fl (7.5-11.1); MONO % 11.7 % (3.8-10.2); NEUT % 49.6 % (42.8-82.8); PLATELET COUNT 279 K/MM3 (134-434); RBC 4.74 M/mm3 (4.00-5.60); RDW 15.2 % (11.9-15.9); WHITE BLOOD COUNT 7.1 K/mm3 (4.0-10.0)
[2021-01-21 15:28] LABS: CHLORIDE 102 mmol/L (98-107); POTASSIUM 3.2 mmol/L (3.5-5.1); SODIUM 138 mmol/L (136-145)
[2021-01-21 15:30] LABS: ALBUMIN 4.1 g/dl (3.4-5.0); ANION GAP 10 MMOL/L (8-16); BLOOD UREA NITROGEN 11.1 mg/dL (7-18); CALCIUM 9.1 mg/dL (8.5-10.1); CO2 26 mmol/L (21-32)
[2021-01-21 15:31] LABS: GLUCOSE,RANDOM 103 mg/dL (74-106)
[2021-01-21 15:33] LABS: SGPT/ALT 50 U/L (13-61)
[2021-01-21 15:34] LABS: CREATININE 2.2 mg/dL (0.55-1.3); SGOT/AST 28 U/L (15-37)
[2021-01-21 15:35] LABS: BILIRUBIN,TOTAL 0.4 mg/dL (0.2-1); TOT PROT 7.2 g/dl (6.4-8.2)
[2021-01-21 15:36] LABS: ALK PHOS 76 U/L (45-117)
[2021-01-21] MEDS ORDERED: POTASSIUM CHLORIDE ORAL LIQUID 20 MEQ/15 ML PO ONE (15:47)
[2021-01-21 15:54] LABS: ANISOCYTOSIS 0; MACROCYTOSIS 0; PLATELET ESTIMATE NORMAL
[2021-01-21] MEDS ORDERED: POTASSIUM CHLORIDE ORAL LIQUID 20 MEQ/15 ML ONE (16:02)
[2021-01-21] MEDS ORDERED: chlordiazePOXIDE HCL 25 MG CAPSULE PO ONE (16:23)
[2021-01-21] MEDS ORDERED: LACTATED RINGERS SOLUTION 1000 ML INFUS.BAG IV ONE (16:33)
[2021-01-21] MEDS ORDERED: chlordiazePOXIDE HCL 25 MG CAPSULE ONE ×2 (16:46→23:14)
[2021-01-21] MEDS ORDERED: chlordiazePOXIDE HCL 25 MG CAPSULE PO PRN (18:44)
[2021-01-21] MEDS: chlordiazePOXIDE HCL 25 MG CAPSULE PO SCH ×2 (19:02→23:26)
[2021-01-21] MEDS ORDERED: HEPARIN NA (PORCINE) 5,000 UNITS/ML 1ML VIAL ONE (19:08)
[2021-01-21] MEDS: SODIUM CHLORIDE 1,000 ML IV SCH (19:16)
[2021-01-21] MEDS: HEPARIN NA (PORCINE) 5,000 UNITS/ML 1ML VIAL SQ SCH (19:16)
[2021-01-21 21:34] LABS: ALLENS TEST POSITIVE; ARTERIAL BLD GAS O2 SATURATION 40.3 mmHg (95-98); ARTERIAL BLOOD GAS BASE EXCESS 0.3 mmol/L (-2-2); ARTERIAL BLOOD GAS pH 7.486 (7.350-7.450)
[2021-01-21] MEDS ORDERED: levETIRAcetam 500 MG TABLET (FP) PO SCH (22:00)
[2021-01-21] MEDS ORDERED: levETIRAcetam 500 MG TABLET (FP) PO ONE (23:14)
[2021-01-22] MEDS ORDERED: chlordiazePOXIDE HCL 25 MG CAPSULE ONE ×2 (05:25→12:20)
[2021-01-22] MEDS ORDERED: HEPARIN NA (PORCINE) 5,000 UNITS/ML 1ML VIAL ONE (05:26)
[2021-01-22] MEDS: HEPARIN NA (PORCINE) 5,000 UNITS/ML 1ML VIAL SQ SCH ×3 (05:32→22:37)
[2021-01-22] MEDS: chlordiazePOXIDE HCL 25 MG CAPSULE PO SCH ×4 (05:32→22:37)
[2021-01-22 08:27] LABS: BASO % 0.5 % (0-2.0); EOS % 0.5 % (0-4.5); HEMATOCRIT 40.7 % (35.4-49); HEMOGLOBIN 13.7 GM/dL (11.7-16.9); LYMPH % 35.8 % (8-40); MCH 33.2 pg (25.7-33.7); MCHC 33.8 g/dl (32.0-35.9); MEAN CELL VOLUME 98.4 fl (80-96); MEAN PLT VOLUME 8.4 fl (7.5-11.1); MONO % 10.9 % (3.8-10.2); NEUT % 52.3 % (42.8-82.8); PLATELET COUNT 236 K/MM3 (134-434); RBC 4.14 M/mm3 (4.00-5.60); RDW 15.5 % (11.9-15.9)
[2021-01-22 08:55] LABS: POTASSIUM 3.8 mmol/L (3.5-5.1)
[2021-01-22 09:04] LABS: ALBUMIN 3.4 g/dl (3.4-5.0); CALCIUM 8.4 mg/dL (8.5-10.1)
[2021-01-22 09:05] LABS: BLOOD UREA NITROGEN 9.5 mg/dL (7-18)
[2021-01-22 09:08] LABS: CREATININE 1.7 mg/dL (0.55-1.3)
[2021-01-22 09:09] LABS: BILIRUBIN,TOTAL 0.5 mg/dL (0.2-1)
[2021-01-22] MEDS ORDERED: DIVALPROEX SODIUM 500 MG TABLET E.C. ONE (11:18)
[2021-01-22] MEDS: DIVALPROEX SODIUM 500 MG TABLET E.C. PO SCH (11:21)
[2021-01-22] MEDS: ESCITALOPRAM OXALATE 20 MG TABLET PO SCH (11:21)
[2021-01-22 15:18] VITALS: BMI 26.7
[2021-01-22] MEDS: SODIUM CHLORIDE 1,000 ML IV SCH (19:12)
[2021-01-22] MEDS ORDERED: levETIRAcetam 250 MG TABLET PO ONE (20:43)
[2021-01-22] MEDS ORDERED: levETIRAcetam 500 MG TABLET (FP) PO ONE (20:43)
[2021-01-23] MEDS: chlordiazePOXIDE HCL 25 MG CAPSULE PO SCH ×4 (06:06→22:07)
[2021-01-23] MEDS: HEPARIN NA (PORCINE) 5,000 UNITS/ML 1ML VIAL SQ SCH ×3 (06:08→22:06)
[2021-01-23 09:57] LABS: POTASSIUM 3.9 mmol/L (3.5-5.1)
[2021-01-23 10:07] LABS: BLOOD UREA NITROGEN 4.9 mg/dL (7-18)
[2021-01-23 10:11] LABS: CREATININE 1.2 mg/dL (0.55-1.3)
[2021-01-23] MEDS ORDERED: ESCITALOPRAM OXALATE 10 MG TABLET ONE (10:51)
[2021-01-23] MEDS ORDERED: levETIRAcetam 250 MG TABLET PO ONE ×2 (10:51→22:01)
[2021-01-23] MEDS ORDERED: levETIRAcetam 500 MG TABLET (FP) PO ONE ×2 (10:51→22:01)
[2021-01-23] MEDS: ESCITALOPRAM OXALATE 20 MG TABLET PO SCH (11:13)
[2021-01-23] MEDS: DIVALPROEX SODIUM 500 MG TABLET E.C. PO SCH (11:13)
[2021-01-23] MEDS: SODIUM CHLORIDE 1,000 ML IV SCH (22:07)
[2021-01-24] MEDS ORDERED: chlordiazePOXIDE HCL 10 MG CAPSULE PO PRN
[2021-01-24] MEDS: HEPARIN NA (PORCINE) 5,000 UNITS/ML 1ML VIAL SQ SCH ×2 (06:02→14:03)
[2021-01-24] MEDS: chlordiazePOXIDE HCL 10 MG CAPSULE PO SCH ×2 (06:02→10:29)
[2021-01-24] MEDS ORDERED: levETIRAcetam 500 MG TABLET (FP) PO ONE (10:25)
[2021-01-24] MEDS ORDERED: levETIRAcetam 250 MG TABLET PO ONE (10:25)
[2021-01-24] MEDS ORDERED: PT OWN MED DRAWER 7, Y5N ONE (10:26)
[2021-01-24] MEDS ORDERED: ESCITALOPRAM OXALATE 10 MG TABLET ONE (10:26)
[2021-01-24] MEDS: ESCITALOPRAM OXALATE 20 MG TABLET PO SCH (10:28)
[2021-01-24] MEDS: DIVALPROEX SODIUM 500 MG TABLET E.C. PO SCH (10:28)
[2021-01-24 10:56] LABS: EOS % 1.9 % (0-4.5); HEMOGLOBIN 13.5 GM/dL (11.7-16.9); LYMPH % 38.7 % (8-40); MCH 33.6 pg (25.7-33.7); MCHC 34.5 g/dl (32.0-35.9); MEAN CELL VOLUME 97.4 fl (80-96); MEAN PLT VOLUME 8.2 fl (7.5-11.1); MONO % 8.9 % (3.8-10.2); NEUT % 49.5 % (42.8-82.8); PLATELET COUNT 209 K/MM3 (134-434); RDW 14.9 % (11.9-15.9); WHITE BLOOD COUNT 4.6 K/mm3 (4.0-10.0)
[2021-01-24 11:24] LABS: POTASSIUM 3.6 mmol/L (3.5-5.1)
[2021-01-24 11:33] LABS: CREATININE 0.8 mg/dL (0.55-1.3)
[2021-01-24 11:35] LABS: BILIRUBIN,TOTAL 0.4 mg/dL (0.2-1)
[2021-01-24 11:41] LABS: ALBUMIN 2.6 g/dl (3.4-5.0); CALCIUM 7.5 mg/dL (8.5-10.1)
[2021-01-24 11:47] LABS: BLOOD UREA NITROGEN 2.7 mg/dL (7-18)
[2021-01-24 11:51] LABS: ANISOCYTOSIS 0; MACROCYTOSIS 0; PLATELET ESTIMATE NORMAL
[2021-01-24 15:34] VITALS: BP 110/74; PULSE 63; TEMP 98.2
[2021-01-25] MEDS ORDERED: chlordiazePOXIDE HCL 10 MG CAPSULE PO SCH (05:00)
[2021-01-26] MEDS ORDERED: chlordiazePOXIDE HCL 10 MG CAPSULE PO ONE (05:00)
== END 2021-01-24 17:56 | disposition home or self-care (01) | DRG 816 ==
LOC: JER 12:53 → JERBED 17:20 → J8W 01-22 14:11
PROVIDERS: ADMIT Internal Medicine; ATTEND Internal Medicine
PROC: HZ2ZZZZ Detoxification Services for Substance Abuse Treatment (ICD-10-PCS; principal; 2021-01-21)
DX: T51.2X1A Toxic effect of 2-Propanol, accidental (unintentional), initial encounter (principal); F41.9 Anxiety disorder, unspecified; G25.2 Other specified forms of tremor; F31.89 Other bipolar disorder; F43.10 Post-traumatic stress disorder, unspecified; F10.239 Alcohol dependence with withdrawal, unspecified; E87.6 Hypokalemia; N17.9 Acute kidney failure, unspecified; F25.9 Schizoaffective disorder, unspecified; E78.00 Pure hypercholesterolemia, unspecified; G40.909 Epilepsy, unspecified, not intractable, without status epilepticus; E03.9 Hypothyroidism, unspecified; J44.9 Chronic obstructive pulmonary disease, unspecified; J45.909 Unspecified asthma, uncomplicated; Y92.89 Other specified places as the place of occurrence of the external cause
CPT/HCPCS: 36415; 36600; 71045-TC-FY; 80048; 80053; 80307; 82803; 83935; 85025; 93005; 93010; 99285-25; C9803; J1644; U0003